=== PATIENT | male | born 1955 | race Caucasian/White ===

== ENCOUNTER 2023-06-10 13:53 | Emergency (ER) | payer OTHER ==
[2023-06-10] MEDS ORDERED: ONDANSETRON 4 MG/2 ML VIAL ONE (14:43)
[2023-06-10 15:10] LABS: Specific Gravity 1.005 (1.005-1.030); Urine Bilirubin NEGATIVE (Negative); Urine Blood Negative (Negative); Urine Clarity Clear (Clear); Urine Color Colorless (Yellow); Urine Glucose 3+ (Negative); Urine Protein NEGATIVE (Negative); Urine Urobilinogen Normal (Normal)
[2023-06-10 15:14] LABS: Protime INR 1.85
[2023-06-10 15:26] LABS: Absolute Lymphocytes (CBC) 0.9 K/uL (0.7-4.9); Hematocrit 33.8 % (39.6-49.0); Lymphocytes % 7.8 % (15.3-44.8); MCV 84.2 fL (80-100); MPV 8.1 fL (7.6-11.3); Platelets 344 thou/uL (152-406); RBC Red Blood Cell Count 4.01 M/uL (4.33-5.43)
[2023-06-10 15:27] LABS: Albumin 2.6 g/dL (3.4-5.0); Bilirubin Total 0.5 mg/dL (0.2-1.0); Potassium 3.8 mEq/L (3.5-5.1); Protein, Total 6.2 g/dL (6.4-8.2); Troponin High Sensitivity 10.2 pg/mL (<58.9)
[2023-06-10] MEDS ORDERED: NA CHLORIDE 0.9% 0 ML ONE (15:35)
--- NOTE | 2023-06-10 16:49 | RAD REPORT ---
EXAM DESCRIPTION: CT - Abdomen Pelvis W Contrast - 06/10/2023 3:42 pm CLINICAL HISTORY: vomit COMPARISON: Abdomen W/Wo Contrast dated 10/08/2022 TECHNIQUE: Thin cut axial CT imaging of the abdomen and pelvis was performed following intravenous a dministration of 100 mL Isovue 300. Multiplanar reformats were generated and reviewed. All CT scans are performed using dose optimization technique as appropriate and may include automated exposure control or mA/KV adjustment according to patient size. FINDINGS: No suspicious findings in the lung bases. The liver, adrenal glands, and pancreas show no suspicious findings. Mild splenomegaly. Gallbladder w as surgically removed. Symmetric renal function is seen with no hydronephrosis or suspicious renal mass. 5.3 cm left renal i nterpolar fluid density cyst, with mild wall thickening medially stable. Postsurgical changes at the gastric cardia again seen. No dilated bowel loops or bowel wall thickenin g. Diverticulum arising from the third part of the duodenum. No free air, free fluid or inflammatory stranding. No hernia, mass or bulky lymphadenopathy. The urinary bladder is without significant findi ng. No suspicious bony findings. IMPRESSION: No acute intra-abdominal process. Stable findings including mild splenomegaly and fluid density left renal interpolar cyst with mild wa ll thickening medially.
--- NOTE | 2023-06-10 17:20 | ER ---
Nurse's Notes [facility] Name: Gregg Martinez Age: 68 yrs Sex: Male : 1955 Arrival Date: 06/10/2023 Time: 13:53 Bed 23 Private MD: Diagnosis: Nausea with vomiting, unspecified Presentation: 06/10 14:24 Chief complaint: EMS states: Pt c/o N/V and dizziness, started this morning, fell last ph week and is scheduled for CT and possible surgery for possible L femur fracture, VSS, BGL 166, 800 mL NS given. Coronavirus screen: Vaccine status: Patient reports receiving the 2nd dose of the covid vaccine. Ebola Screen: No symptoms or risks identified at this time. Initial Sepsis Screen: Does the patient meet any 2 criteria? No. Patient's initial sepsis screen is negative. Does the patient have a suspected source of infection? No. Patient's initial sepsis screen is negative. Risk Assessment: Do you want to hurt yourself or someone else? Patient reports no desire to harm self or others. Onset of symptoms was June 10, 2023. 14:24 Method Of Arrival: EMS: [facility] [place] 14:24 Acuity: FAHEEM 3 ph Triage Assessment: 14:45 General: Appears in no apparent distress. Behavior is calm, cooperative, appropriate ph for age. Pain: Complains of pain in left leg. Neuro: Ahmadi Agitation-Sedation Scale (RASS): 0 - Alert and Calm Level of Consciousness is awake, alert, obeys commands, Oriented to person, place, time, situation, Reports dizziness. Cardiovascular: Capillary refill < 3 seconds in bilateral fingers Patient's skin is warm and dry. Edema is 3+ to left midcalf, left ankle, left foot, right midcalf, right ankle and right foot Rhythm is sinus rhythm. Respiratory: Airway is patent Respiratory effort is even, unlabored, Respiratory pattern is regular, symmetrical. GI: Abdomen is non-distended, obese, Reports nausea, vomiting, 1 episode of "soft stools". : No signs and/or symptoms were reported regarding the genitourinary system. Derm: Skin is pink, warm \\T\\ dry. Musculoskeletal: Circulation, motion, and sensation intact. Historical: - Allergies: 14:37 No Known Allergies; ph - Home Meds: 14:37 levothyroxine 25 mcg tablet 1 tab daily [Active]; Xigduo XR 10-1,000 mg oral ph tablet,immed \\T\\ ext release,biphasic 24hr daily [Active]; allopurinol 200 mg Oral tablet 1 tab daily [Active]; warfarin 10 mg Oral tablet daily [Active]; lisinopril 20 mg Oral tablet daily [Active]; montelukast 10 mg oral tablet daily [Active]; loratadine 10 mg oral tablet daily [Active]; furosemide 20 mg Oral tablet daily [Active]; magnesium glycinate oral 420 mg daily [Active]; pantoprazole 40 mg oral tablet, delayed release (enteric coated) daily [Active]; carvedilol 12.5 mg oral tablet 2 times per day [Active]; Tresiba FlexTouch U-100 100 unit/mL (3 mL) subcutaneous Insulin Pen 20 units daily [Active]; rosuvastatin 5 mg oral tablet daily [Active]; methocarbamol 750 mg Oral tablet TID PRN [Active]; gabapentin 300 mg (9)- 600 mg (24) oral Tablet, Extended Release 24hr Dose Pack TID PRN [Active]; tramadol 50 mg Oral tablet 1-2 tabs PRN [Active]; trazodone 100 mg Oral tablet as needed [Active]; Mitigare 0.6 mg oral capsule BID PRN [Active]; Mounjaro 5 mg/0.5 mL subcutaneous Pen Injector every week [Active]; - PMHx: 14:28 Diabetes mellitus; lymphedema; ph 14:37 Hypothyroidism; Hypertensive disorder; Hypercholesterolemia; chronic pain; Gout; ph - Immunization history:: Adult Immunizations up to date. - Social history:: Smoking status: Patient denies any tobacco usage or history of. - Family history:: not pertinent. Screenin:39 [facility] ED Fall Risk Assessment (Adult) History of falling in the last 3 months, ph including since admission Yes- single mechanical fall (1 pt) Confusion or Disorientation No (0 pts) Intoxicated or Sedated No (0 pts) Impaired Gait Yes (1 pt) Mobility Assist Device Used Yes (1 pt) Altered Elimination Yes (1 pt) Score/Fall Risk Level 3 or more points = High Risk Oriented to surroundings, Maintained a safe environment, Hourly rounding (assess needs \\T\\ fall precautionary measures) done, Used ambulatory aids as needed (educated on \\T\\ assisted with). Abuse screen: Denies threats or abuse. Denies injuries from another. Nutritional screening: No deficits noted. Tuberculosis screening: No symptoms or risk factors identified. Assessment: 15:39 Reassessment: Pt taken to CT via stretcher. General: SEE TRIAGE ASSESSMENT. ph Vital Signs: 14:24 BP 139 / 64; Pulse 71; Resp 16; Temp 97.8; Pulse Ox 99% on R/A; Weight 129.27 kg; ph Height 6 ft. 2 in. ; 15:39 BP 130 / 63; Pulse 68; Resp 18; Pulse Ox 98% on R/A; ph 14:24 Body Mass Index 36.59 (129.27 kg, 187.96 cm) ph ED Course: 14:11 Patient arrived in ED. ph 14:12 Ephraim Roman MD is Attending Physician. rt 14:28 Triage completed. ph 14:46 Arm band placed on Patient placed in an exam room, on a stretcher, on preschool director, ph on pulse oximetry. 15:39 Latasha Marie RN is Primary Nurse. ph 15:40 Patient has correct armband on for positive identification. Placed in gown. Bed in low ph position. Call light in reach. Side rails up X2. Client placed on continuous cardiac and pulse oximetry monitoring. NIBP monitoring applied. Door closed. Noise minimized. Warm blanket given. Pillow given. 15:40 Maintain EMS IV. Dressing intact. Good blood return noted. Site clean \\T\\ dry. Gauge \\T\\ ph site: 20G LAC. 15:43 CT Abd/Pelvis - IV Contrast Only In Process Unspecified. EDMS 18:14 No provider procedures requiring assistance completed. IV discontinued, intact, ph bleeding controlled, No redness/swelling at site. Pressure dressing applied. Administered Medications: 14:46 Drug: Ondansetron IVP 4 mg IVP once; over 2 minutes Route: IVP; Site: left antecubital; ph 18:15 Follow up: Response: No adverse reaction; Nausea is decreased ph 16:15 Drug: NS 0.9% IV 1000 ml IV at 1 bolus Per protocol; 1000 mL bolus Route: IV; Rate: 1 ph bolus; Site: left antecubital; 18:15 Follow up: Response: No adverse reaction; IV Status: Completed infusion; IV Intake: ph 1000ml Medication: 15:40 VIS not applicable for this client. ph Intake: 18:15 IV: 1000ml; Total: 1000ml. ph Outcome: 17:20 Discharge ordered by . rt 18:14 Discharged to home via wheelchair, ph 18:14 Condition: good 18:14 Discharge instructions given to patient, significant other, Instructed on discharge instructions, follow up and referral plans. medication usage, Demonstrated understanding of instructions, follow-up care, medications, Prescriptions given X 2, 18:16 Patient left the ED. ph Signatures: Dispatcher [employer] Latasha Hammond, ELIDA RN ph Ephraim Roman MD MD rt
--- NOTE | 2023-06-10 17:21 | EDPHYS ---
Physician Documentation [facility] Name: Gregg Martinez Age: 68 yrs Sex: Male : 1955 Arrival Date: 06/10/2023 Time: 13:53 Bed 23 Private MD: ED Physician Ephraim Roman HPI: 06/10 15:06 This 68 yrs old Male presents to ER via EMS with complaints of Dizziness, rt Nausea/Vomiting. 15:06 Patient presents to the ED with nausea, vomiting, reported lightheadedness. This rt started about 5 this morning. Denies any significant abdominal pain. The patient states that he recently had a fall, x-rays were equivocal for hip fracture, supposed to get a CT scan of his pelvis today to further evaluate for that. Is able to bear weight and walk with the aid of a walker. Denies other acute complaints at this time, symptoms are moderate in severity, no other aggravating alleviating factors. Historical: - Allergies: 14:37 No Known Allergies; ph - Home Meds: 14:37 levothyroxine 25 mcg tablet 1 tab daily [Active]; Xigduo XR 10-1,000 mg oral ph tablet,immed \T\ ext release,biphasic 24hr daily [Active]; allopurinol 200 mg Oral tablet 1 tab daily [Active]; warfarin 10 mg Oral tablet daily [Active]; lisinopril 20 mg Oral tablet daily [Active]; montelukast 10 mg oral tablet daily [Active]; loratadine 10 mg oral tablet daily [Active]; furosemide 20 mg Oral tablet daily [Active]; magnesium glycinate oral 420 mg daily [Active]; pantoprazole 40 mg oral tablet, delayed release (enteric coated) daily [Active]; carvedilol 12.5 mg oral tablet 2 times per day [Active]; Tresiba FlexTouch U-100 100 unit/mL (3 mL) subcutaneous Insulin Pen 20 units daily [Active]; rosuvastatin 5 mg oral tablet daily [Active]; methocarbamol 750 mg Oral tablet TID PRN [Active]; gabapentin 300 mg (9)- 600 mg (24) oral Tablet, Extended Release 24hr Dose Pack TID PRN [Active]; tramadol 50 mg Oral tablet 1-2 tabs PRN [Active]; trazodone 100 mg Oral tablet as needed [Active]; Mitigare 0.6 mg oral capsule BID PRN [Active]; Mounjaro 5 mg/0.5 mL subcutaneous Pen Injector every week [Active]; - PMHx: 14:28 Diabetes mellitus; lymphedema; ph 14:37 Hypothyroidism; Hypertensive disorder; Hypercholesterolemia; chronic pain; Gout; ph - Immunization history:: Adult Immunizations up to date. - Social history:: Smoking status: Patient denies any tobacco usage or history of. - Family history:: not pertinent. ROS: 15:06 Constitutional: Negative for fever, chills, and weight loss, Cardiovascular: Negative rt for chest pain, palpitations, and edema, MS/Extremity: Negative for injury and deformity, Skin: Negative for injury, rash, and discoloration, Psych: Negative for depression, anxiety, suicide ideation, homicidal ideation, and hallucinations, 15:06 Abdomen/GI: Positive for nausea and vomiting, Negative for abdominal pain, 15:06 MS/extremity: Positive for pain, Negative for deformity, 15:06 Neuro: Positive for near syncope, Negative for loss of consciousness, Exam: 15:06 Constitutional: This is a well developed, well nourished patient who is awake, alert, rt and in no acute distress. Head/Face: Normocephalic, atraumatic. Chest/axilla: Normal chest wall appearance and motion. Nontender with no deformity. No lesions are appreciated. Cardiovascular: Regular rate and rhythm with a normal S1 and S2. No gallops, murmurs, or rubs. Normal PMI, no JVD. No pulse deficits. Respiratory: Lungs have equal breath sounds bilaterally, clear to auscultation and percussion. No rales, rhonchi or wheezes noted. No increased work of breathing, no retractions or nasal flaring. Abdomen/GI: Soft, non-tender, with normal bowel sounds. No distension or tympany. No guarding or rebound. No evidence of tenderness throughout. Skin: Warm, dry with normal turgor. Normal color with no rashes, no lesions, and no evidence of cellulitis. Neuro: Awake and alert, GCS 15, oriented to person, place, time, and situation. Cranial nerves II-XII grossly intact. Motor strength 5/5 in all extremities. Sensory grossly intact. Cerebellar exam normal. Normal gait. Psych: Awake, alert, with orientation to person, place and time. Behavior, mood, and affect are within normal limits. 15:06 Cardiovascular: . 15:06 Cardiovascular: Mechanical heart valve sounds, regular rate and rhythm, 15:06 ECG was reviewed by the Attending Physician. Vital Signs: 14:24 BP 139 / 64; Pulse 71; Resp 16; Temp 97.8; Pulse Ox 99% on R/A; Weight 129.27 kg; ph Height 6 ft. 2 in. ; 15:39 BP 130 / 63; Pulse 68; Resp 18; Pulse Ox 98% on R/A; ph 14:24 Body Mass Index 36.59 (129.27 kg, 187.96 cm) ph MDM: 14:21 Patient medically screened. rt 17:54 Differential diagnosis: Nausea, vomiting, bowel obstruction, hip fracture. Data rt reviewed: vital signs, nurses notes, lab test result(s), EKG, radiologic studies. Consideration of Admission/Observation Escalation of care including admission/observation considered. Discussion of test interpretation with radiology: I had a discussion with radiology regarding a test interpretation. Discussed findings of hip with radiologist, states that he has osteophytes but no acute fracture.. Care significantly affected by the following chronic conditions: Diabetes, Hypertension. Counseling: I had a detailed discussion with the patient and/or guardian regarding the historical points, exam findings, and any diagnostic results supporting the discharge/admit diagnosis, lab results, radiology results, the need for outpatient follow up, to return to the emergency department if symptoms worsen or persist or if there are any questions or concerns that arise at home. Response to treatment: the patient's symptoms have markedly improved after treatment. 06/10 14:33 Order name: CBC with Diff; Complete Time: 16:05 rt 06/10 14:33 Order name: CMP; Complete Time: 16:05 rt 06/10 14:33 Order name: Lipase; Complete Time: 16:05 rt 06/10 14:33 Order name: Urinalysis w/ reflexes; Complete Time: 16:05 rt 06/10 14:33 Order name: Troponin High Sensitivity; Complete Time: 16:05 rt 06/10 14:33 Order name: PT-INR; Complete Time: 16:05 rt 06/10 15:03 Order name: Influenza Screen (a \T\ B); Complete Time: 16:05 rt 06/10 14:33 Order name: CT Abd/Pelvis - IV Contrast Only; Complete Time: 16:58 rt 06/10 14:33 Order name: EKG; Complete Time: 14:34 rt 06/10 14:33 Order name: IV Saline Lock; Complete Time: 14:47 rt 06/10 14:33 Order name: Labs collected and sent; Complete Time: 15:40 rt 11 14:33 Order name: EKG - Nurse/Tech; Complete Time: 14:47 rt EC:06 Rate is 69 beats/min. Rhythm is regular, Normal Sinus Rhythm with No ectopy, rt Bifascicular block. Left axis deviation noted. NH interval is normal. QRS interval is normal. QT interval is normal. No Q waves. Administered Medications: 14:46 Drug: Ondansetron IVP 4 mg IVP once; over 2 minutes Route: IVP; Site: left antecubital; ph 18:15 Follow up: Response: No adverse reaction; Nausea is decreased ph 16:15 Drug: NS 0.9% IV 1000 ml IV at 1 bolus Per protocol; 1000 mL bolus Route: IV; Rate: 1 ph bolus; Site: left antecubital; 18:15 Follow up: Response: No adverse reaction; IV Status: Completed infusion; IV Intake: ph 1000ml Disposition Summary: 06/10/23 17:20 Discharge Ordered Notes: Location: Home rt Problem: new rt Symptoms: have improved rt Condition: Stable rt Diagnosis - Nausea with vomiting, unspecified rt Followup: rt - With: Private Physician - When: 2 - 3 days - Reason: Discharge Instructions: - Discharge Summary Sheet rt - Nausea and Vomiting, Adult rt Forms: - Medication Reconciliation Form rt - Thank You Letter rt - Antibiotic Education rt - Prescription Opioid Use rt - Patient Portal Instructions rt - Leadership Thank You Letter rt Prescriptions: - ondansetron 4 mg Oral Tablet,disintegrating - take 1 tablet ORAL route every 6 hours; 18 tablet; Refills: 0, Product rt Selection Permitted Signatures: Dispatcher [employer] Latasha Hammond RN RN Ephraim Roman MD MD rt
[2023-06-10 18:47] VITALS: TEMP 97.8
[2023-06-10 18:48] VITALS: BP 130/63; O2SAT 98
--- NOTE | 2023-06-11 09:48 | EKG ---
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
== END 2023-06-10 18:16 | disposition home or self-care (01) ==
LOC: ER 13:53
DX: R11.2 Nausea with vomiting, unspecified (principal); E11.9 Type 2 diabetes mellitus without complications; I10 Essential (primary) hypertension; E03.9 Hypothyroidism, unspecified; Z79.01 Long term (current) use of anticoagulants; Z79.4 Long term (current) use of insulin
CPT/HCPCS: 36415; 74177; 80053; 81003; 83690; 84484; 85025; 85610; 87804; 93005; 96361; 96374; 99284; J2405; J7030; Q9967

== ENCOUNTER 2023-06-12 09:31 | Inpatient (IN) | payer OTHER ==
[2023-06-12 09:58] LABS: Absolute Lymphocytes (CBC) 1.1 K/uL (0.7-4.9); Lymphocytes % 8.6 % (15.3-44.8); MCV 83.8 fL (80-100); MPV 7.5 fL (7.6-11.3); Platelets 432 thou/uL (152-406); RBC Red Blood Cell Count 4.66 M/uL (4.33-5.43)
[2023-06-12] MEDS ORDERED: NA CHLORIDE 0.9% 1,000 ML ONE (10:08)
[2023-06-12] MEDS ORDERED: DICYCLOMINE HCL 20 MG/2 ML AMP IM ONE (10:08)
[2023-06-12] MEDS ORDERED: ONDANSETRON 4 MG/2 ML VIAL ONE (10:08)
[2023-06-12 10:18] LABS: Albumin 3.1 g/dL (3.4-5.0); Bilirubin Total 0.7 mg/dL (0.2-1.0); Potassium 3.7 mEq/L (3.5-5.1); Protein, Total 7.6 g/dL (6.4-8.2)
[2023-06-12 10:27] LABS: SARS-CoV-2 Antigen Rapid Res Negative (Negative)
[2023-06-12 10:46] LABS: Specific Gravity 1.019 (1.005-1.030); Urine Bacteria None Seen /HPF (<20); Urine Bilirubin NEGATIVE (Negative); Urine Blood Negative (Negative); Urine Clarity Clear (Clear); Urine Color Light-Yellow (Yellow); Urine Glucose 4+ (Over) (Negative); Urine Protein TRACE (Negative); Urine RBC None Seen /HPF (None Seen); Urine Sperm Present (None Seen); Urine Urobilinogen 1+ (Normal)
--- NOTE | 2023-06-12 11:28 | EDPHYS ---
Physician Documentation [facility] Name: Gregg Martinez Age: 68 yrs Sex: Male : 1955 Arrival Date: 06/12/2023 Time: 09:31 Bed 20 Private MD: Kenny Rios V ED Physician Teja Louis HPI: 06/12 09:48 This 68 yrs old Male presents to ER via Ambulatory with complaints of Diarrhea. 7 09:48 The patient presents to the emergency department with nausea, diarrhea. Onset: The jh7 symptoms/episode began/occurred 3 day(s) ago. Possible causes: unknown. Associated signs and symptoms: Pertinent positives: fever, Pertinent negatives: dysuria, vomiting. Patient seen on Thursday and discharged for the same thing. He reports that his symptoms have not improved and that he has hardly eaten anything for the past 3 days. Denies vomiting, but reports fever, chills, watery diarrhea, and nausea. States that he feels weak and dehydrated.. Historical: - Allergies: 09:47 No Known Allergies; eh3 - PMHx: 09:47 Chronic pain; diabetes mellitus; Gout; Hypercholesterolemia; Hypertensive disorder; eh3 Hypothyroidism; lymphedema; - Immunization history:: Adult Immunizations up to date. - Social history:: Smoking status: unknown. ROS: 09:48 Eyes: Negative for injury, pain, redness, and discharge, ENT: Negative for injury, jh7 pain, and discharge, Cardiovascular: Negative for chest pain, palpitations, and edema, Respiratory: Negative for shortness of breath, cough, wheezing, and pleuritic chest pain, Back: Negative for injury and pain, MS/Extremity: Negative for injury and deformity, Skin: Negative for injury, rash, and discoloration, Neuro: Negative for headache, weakness, numbness, tingling, and seizure, 09:48 Constitutional: Positive for body aches, chills, fatigue, fever, malaise, poor PO intake, 09:48 Abdomen/GI: Positive for nausea, diarrhea, abdominal cramps, Negative for abdominal pain, vomiting, constipation, dysphagia, black/tarry stool, rectal pain, rectal bleeding, 09:48 All other systems are negative, Exam: 09:48 Head/Face: Normocephalic, atraumatic. ENT: Nares patent. No nasal discharge, no 7 septal abnormalities noted. Tympanic membranes are normal and external auditory canals are clear. Oropharynx with no redness, swelling, or masses, exudates, or evidence of obstruction, uvula midline. Mucous membranes moist. Cardiovascular: Regular rate and rhythm with a normal S1 and S2. No gallops, murmurs, or rubs. Normal PMI, no JVD. No pulse deficits. Respiratory: Lungs have equal breath sounds bilaterally, clear to auscultation and percussion. No rales, rhonchi or wheezes noted. No increased work of breathing, no retractions or nasal flaring. Abdomen/GI: Soft, non-tender, with normal bowel sounds. No distension or tympany. No guarding or rebound. No evidence of tenderness throughout. Back: No spinal tenderness. No costovertebral tenderness. Full range of motion. MS/ Extremity: Pulses equal, no cyanosis. Neurovascular intact. Full, normal range of motion. Neuro: Awake and alert, GCS 15, oriented to person, place, time, and situation. Motor strength 5/5 in all extremities. Sensory grossly intact. Normal gait. 09:48 Constitutional: The patient appears alert, awake, obviously ill, 09:48 Skin: Appearance: Color: pale, Vital Signs: 09:46 BP 152 / 77; Pulse 69; Resp 18; Temp 99.1(O); Pulse Ox 98% on R/A; Weight 129.27 kg; eh3 Height 6 ft. 3 in. ; Pain 7/10; 10:30 BP 151 / 76; Pulse 58; Resp 18; Pulse Ox 95% on R/A; eh3 11:30 BP 138 / 55; Pulse 66; Resp 18; Pulse Ox 95% on R/A; eh3 09:46 Body Mass Index 35.62 (129.27 kg, 190.5 cm) [facility] 09:46 Pain Scale: Adult 3 MDM: 09:35 Patient medically screened. [facility] 11:40 Differential diagnosis: diverticulitis, viral gastroenteritis, gastroenteritis, jh7 Dehydration, generalized weakness, electrolyte abnormality. Data reviewed: vital signs, nurses notes, lab test result(s). Management of patient was discussed with the following: Primary Care Provider: Dr. Rios. Requested Giardia screen, WBC stain, stool culture, ova and parasite, and C. difficile test. Also asked for a PT consult and Lovenox 40 sq daily. Will admit for dehydration and put the patient on maintenance fluids.. I considered the following discharge prescriptions or medication management in the emergency department Medications were administered in the Emergency Department. See MAR. Historians other than the Patient: Spouse/Significant Other: . Care significantly affected by the following chronic conditions: Diabetes, Hypertension. Counseling: I had a detailed discussion with the patient and/or guardian regarding the historical points, exam findings, and any diagnostic results supporting the discharge/admit diagnosis, the need for further work-up and treatment in the hospital. Response to treatment: the patient's symptoms have mildly improved after treatment. 06/12 09:45 Order name: CBC with Diff; Complete Time: 10:01 [facility] 06/12 09:45 Order name: CMP; Complete Time: 10:24 [facility] 06/12 09:45 Order name: Lipase; Complete Time: 10:24 [facility] 06/12 09:45 Order name: Urinalysis w/ reflexes; Complete Time: 10:52 [facility] 06/12 10:01 Order name: SARS RAPID; Complete Time: 10:32 [facility] 06/12 10:02 Order name: Lactate w/ 2H reflex if indic.; Complete Time: 10:40 [facility] 06/12 10:06 Order name: CDIFF; Complete Time: 13:37 [facility] 06/12 10:06 Order name: Stool Culture [facility] 06/12 11:27 Order name: Fecal Leukocyte Stain [facility] 06/12 11:27 Order name: Ova And Parasites [facility] 06/12 11:27 Order name: Giardia Antigen Screen [facility] 06/12 11:38 Order name: Urinalysis w/ reflexes [facility] 06/12 11:41 Order name: Basic Metabolic Panel [facility] 06/12 11:41 Order name: Basic Metabolic Panel [facility] 06/12 11:41 Order name: CBC with Automated Diff [facility] 06/12 11:41 Order name: CBC with Automated Diff [facility] 06/12 11:41 Order name: Physical Therapy Consult [facility] 06/12 09:45 Order name: IV Saline Lock; Complete Time: 09:49 [facility] 06/12 09:45 Order name: Labs collected and sent; Complete Time: 09:49 [facility] Administered Medications: 10:00 Drug: NS 0.9% IV 1000 ml IV at 1 bolus Per protocol; 1000 mL bolus Route: IV; Rate: 1 eh3 bolus; Site: right antecubital; 11:15 Follow up: IV Status: Completed infusion; IV Intake: 1000ml 3 10:00 Drug: Ondansetron IVP 4 mg IVP once; over 2 minutes Route: IVP; Site: right antecubital;3 11:00 Follow up: Response: No adverse reaction; Nausea is decreased 3 10:00 Drug: Dicyclomine IM 20 mg IM once Route: IM; Site: right ventrogluteal; 3 11:00 Follow up: Response: No adverse reaction 3 Disposition: 13:38 Co-signature as Attending Physician, Teja Louis MD I reviewed the patient's care rn provided by the Advanced Practice Provider and agree with the diagnosis and treatment plan. Disposition Summary: 06/12/23 11:28 Hospitalization Ordered Notes: Hospitalization Status: Inpatient Admission [facility] Provider: Kenny Rios [facility] Location: Telemetry/[facility] (Inpatient) [facility] Condition: Fair [facility] Problem: new [facility] Symptoms: have worsened [facility] Bed/Room Type: Standard [facility] Room Assignment: [facility](06/12/23 12:17) Diagnosis - Dehydration 7 - Muscle weakness (generalized) 7 - Diarrhea, unspecified [facility] Forms: - Medication Reconciliation Form [facility] - SBAR form [facility] - Leadership Thank You Letter [facility] Signatures: Dispatcher [employer] Teja Puente MD MD rn Botello, Elizabeth eb Hall, Erin, RN RN [facility] Tory Ugarte FNP [place] [id number] Corrections: (The following items were deleted from the chart) 11:07 09:48 Onset: The symptoms/episode began/occurred 6 day(s) ago, [place] [address] 11:07 09:48 Patient seen on Thursday and discharged for the same thing. He reports that his [facility] symptoms have not improved and that he has hardly eaten anything for the past 3 days. Denies vomiting, but reports fever, chills, watery diarrhea, and nausea. States that he feels weak and dehydrated.. [facility] 12:17 11:28 [facility]
--- NOTE | 2023-06-12 11:28 | ER ---
Nurse's Notes [facility] Name: Gregg Martinez Age: 68 yrs Sex: Male : 1955 Arrival Date: 06/12/2023 Time: 09:31 Bed 20 Private MD: Kenny Rios V Diagnosis: Dehydration;Muscle weakness (generalized);Diarrhea, unspecified Presentation: 06/12 09:46 Chief complaint: Patient states: diarrhea and nausea for 5-6 days. Coronavirus screen: eh3 Vaccine status: Patient reports receiving the 2nd dose of the covid vaccine. Ebola Screen: No symptoms or risks identified at this time. Initial Sepsis Screen: Does the patient meet any 2 criteria? No. Patient's initial sepsis screen is negative. Does the patient have a suspected source of infection? No. Patient's initial sepsis screen is negative. Risk Assessment: Do you want to hurt yourself or someone else? Patient reports no desire to harm self or others. Onset of symptoms was June 12, 2023. 09:46 Method Of Arrival: Ambulatory [facility] 09:46 Acuity: FAHEEM 3 eh3 Triage Assessment: 09:47 General: Appears in no apparent distress. uncomfortable, Behavior is cooperative, eh3 appropriate for age. Pain: Complains of pain in abdomen. Neuro: Level of Consciousness is awake, alert, obeys commands, Oriented to person, place, time, situation. Cardiovascular: Capillary refill < 3 seconds Patient's skin is warm and dry. Respiratory: Airway is patent Respiratory effort is even, unlabored, Respiratory pattern is regular, symmetrical. GI: Abdomen is round non-distended, Reports diarrhea, nausea. Derm: Skin is pink, warm \T\ dry. Musculoskeletal: Circulation, motion, and sensation intact. Historical: - Allergies: 09:47 No Known Allergies; eh3 - PMHx: 09:47 Chronic pain; diabetes mellitus; Gout; Hypercholesterolemia; Hypertensive disorder; eh3 Hypothyroidism; lymphedema; - Immunization history:: Adult Immunizations up to date. - Social history:: Smoking status: unknown. Screenin:48 [facility] ED Fall Risk Assessment (Adult) Score/Fall Risk Level 0 - 2 = Low Risk. Abuse eh3 screen: Denies threats or abuse. Denies injuries from another. Nutritional screening: No deficits noted. Tuberculosis screening: No symptoms or risk factors identified. Assessment: 09:48 Reassessment: No changes from previously documented assessment. See triage assessment. 3 10:30 Reassessment: Patient appears in no apparent distress at this time. Patient and/or eh3 family updated on plan of care and expected duration. Pain level reassessed. Patient is alert, oriented x 3, equal unlabored respirations, skin warm/dry/pink. 11:30 Reassessment: Patient appears in no apparent distress at this time. Patient and/or eh3 family updated on plan of care and expected duration. Pain level reassessed. Patient is alert, oriented x 3, equal unlabored respirations, skin warm/dry/pink. 12:24 Reassessment: Nurse to nurse report received by ELIDA Torres on 2nd floor. [facility] Vital Signs: 09:46 BP 152 / 77; Pulse 69; Resp 18; Temp 99.1(O); Pulse Ox 98% on R/A; Weight 129.27 kg; 3 Height 6 ft. 3 in. ; Pain 7/10; 10:30 BP 151 / 76; Pulse 58; Resp 18; Pulse Ox 95% on R/A; eh3 11:30 BP 138 / 55; Pulse 66; Resp 18; Pulse Ox 95% on R/A; eh3 09:46 Body Mass Index 35.62 (129.27 kg, 190.5 cm) eh3 09:46 Pain Scale: Adult [facility] ED Course: 09:31 Patient arrived in ED. rg4 09:31 Kenny Rios MD is Private Physician. rg4 09:35 Tory Ugarte FNP [facility] jh7 09:35 Teja Louis MD is Attending Physician. jh7 09:46 Alysa Marie, ELIDA is Primary Nurse. eh3 09:47 Triage completed. eh3 09:47 Arm band placed on. eh3 09:48 Patient has correct armband on for positive identification. Bed in low position. Call [facility] light in reach. Side rails up X2. Provided Education on: use of call leach. Pulse ox on. NIBP on. 09:53 CBC with Diff Sent. bc6 09:53 CMP Sent. bc6 09:53 Lipase Sent. bc6 09:53 Inserted saline lock: 20 gauge in right antecubital area, using aseptic technique. bc6 10:34 Urinalysis w/ reflexes Sent. bc6 11:27 Kenny Rios MD is Hospitalizing Provider. [facility] 12:24 No provider procedures requiring assistance completed. Patient admitted, IV remains in [address] Administered Medications: 10:00 Drug: NS 0.9% IV 1000 ml IV at 1 bolus Per protocol; 1000 mL bolus Route: IV; Rate: 1 eh3 bolus; Site: right antecubital; 11:15 Follow up: IV Status: Completed infusion; IV Intake: 1000ml [facility] 10:00 Drug: Ondansetron IVP 4 mg IVP once; over 2 minutes Route: IVP; Site: right antecubital;3 11:00 Follow up: Response: No adverse reaction; Nausea is decreased [facility] 10:00 Drug: Dicyclomine IM 20 mg IM once Route: IM; Site: right ventrogluteal; 3 11:00 Follow up: Response: No adverse reaction [facility] Medication: 12:24 VIS not applicable for this client. 3 Intake: 11:15 IV: 1000ml; Total: 1000ml. [facility] Outcome: 11:28 Decision to Hospitalize by Provider. [facility] 12:24 Admitted to Med/surg accompanied by tech, family with patient, via stretcher, room 217, 3 Report called to ELIDA Torres 12:24 Condition: stable 12:24 Instructed on the need for admit, 12:58 Patient left the ED. [facility] Signatures: Jennifer Arriola rg4 Alysa Marie RN RN 3 Tory Ugarte, CREW LEAD CREW LEAD [facility]
[2023-06-12] MEDS ORDERED: NA CHLORIDE 0.9% 1,000 ML IV SCH (12:00)
[2023-06-12 12:46] LABS: C.diff Antigen/Toxin Ag neg : Tox neg (NEG : NEG)
[2023-06-12 12:59] VITALS: BMI 35.6
[2023-06-12] MEDS ORDERED: methocarbamoL 750 MG TAB PO PRN (14:23)
[2023-06-12] MEDS ORDERED: TRAMADOL HCL 50 MG TAB PO PRN (14:23)
--- NOTE | 2023-06-12 14:33 | P.HP ---
Certification for Inpatient Patient admitted to: Inpatient With expected LOS: >2 Midnights Practitioner: I am a practitioner with admitting privileges, knowledge of patient current condition, hospital course, and medical plan of care. Services: Services provided to patient in accordance with Admission requirements found in Title 42 Section 412.3 of the Code of Federal Regulations Patient History Date of Service: 06/12/23 Reason for admission: WEAKNESS, NOT ABLE TO WALK History of Present Illness: ABDULAZIZ IS MORBIDLY OBESE DIABETIC WHO GOT WEAK WITH NAUSEA AND VOMITING, WAS SEEN BY ER DOCTOR, CT SCAN NEG, SENT HOME. HE LATER FELL AND HURT L KNEE AND HIP. DR LADD ASKED FOR CT SCAN OF HIP SUSPECTING FRACTURE AND ASKED HIM NOT TO WALK. THAT IS WHY IS NOT WALKING. ER PA DID NOT GET THIS HISTORY. HE HAS LOW GRADE LEUKOCYTOSIS LATELY. Allergies No Known Allergies Allergy (Unverified 06/12/23 11:54) Home medications list reviewed: Yes Home Medications: Carvedilol [Coreg] 12.5 mg PO BID 6AM 6PM 06/12/23 Colchicine [Mitigare] 0.6 mg PO BID PRN 06/12/23 Dapagliflozin/Metformin HCl [Xigduo Xr 10 mg-1,000 mg Tab] 1 tab PO DAILY 06/12/23 Furosemide 20 mg PO DAILY 06/12/23 Gabapentin 300 mg PO TID 06/12/23 Insulin Degludec [Tresiba Flextouch U-100] 20 units SQ DAILY 06/12/23 Levothyroxine Sodium [Levothyroxine] 25 mcg PO [id number] 06/12/23 Loratadine [Claritin*] 10 mg PO DAILY 06/12/23 Magnesium Glycinate, Mag Oxide [Magnesium Glycinate] 420 mg PO DAILY 06/12/23 Montelukast [Singulair*] 10 mg PO BEDTIME 06/12/23 Pantoprazole Sodium 40 mg PO DAILY 06/12/23 Rosuvastatin Calcium 5 mg PO DAILY 06/12/23 Tirzepatide [Mounjaro] 5 mg SQ SEECOM 06/12/23 Trazodone HCl 100 mg PO BEDTIME PRN 06/12/23 Warfarin Sodium 10 mg PO DAILY 06/12/23 allopurinoL [Allopurinol] 200 mg PO DAILY 06/12/23 lisinopriL [Lisinopril] 20 mg PO DAILY 06/12/23 methocarbamoL [Methocarbamol] 750 mg PO TID PRN 06/12/23 traMADol HCL [Ultram*] 50 mg PO TID PRN 06/12/23 - Past Medical/Surgical History Has patient received pneumonia vaccine in the past: Yes Diabetic: Yes -: DM -: GOUT -: Chronic pain -: Hypercholesterolemia -: HTN -: Hypothyroidism -: Lymphedema -: CHF -: Pulmonary embolism -: Rt wrist repair -: Rt knee repair -: Aortic valve replacement -: cholecystectomy -: Gastric bypass -: BLE vein stripping -: Tonsillectomy - Social History Smoking Status: Never smoker Alcohol use: No CD- Drugs: No Caffeine use: No Place of Residence: Home Review of Systems 10-point ROS is otherwise unremarkable General: Weakness Gastrointestinal: Diarrhea, As per HPI Physical Examination - Vital Signs Temperature: 99.1 F Blood Pressure: 138/55 Pulse: 66 Respirations: 18 Pulse Ox (%): 99 - Physical Exam General: Alert, In no apparent distress, Obese HEENT: Atraumatic, PERRLA, Mucous membr. moist/pink, EOMI, Sclerae nonicteric Neck: Supple, 2+ carotid pulse no bruit, No LAD, Without JVD or thyroid abnormality Respiratory: Clear to auscultation bilaterally, Normal air movement Cardiovascular: Regular rate/rhythm, Normal S1 S2 Gastrointestinal: Normal bowel sounds, No tenderness Musculoskeletal: No tenderness Integumentary: No rashes Neurological: Normal gait, Normal speech, Normal strength at 5/5 x4 extr, Normal tone, Normal affect Lymphatics: No axilla or inguinal lymphadenopathy - Studies Laboratory Data (last 24 hrs) 06/12/23 06/12/23 09:50 09:50 WBC 12.90 H Hgb 12.6 L Hct 39.0 L Plt Count 432 H Sodium 139 Potassium 3.7 BUN 9 Creatinine 1.07 Glucose 148 H Total Bilirubin 0.7 AST 10 L ALT 20 Alkaline Phosphatase 91 Lipase 39 Assessment and Plan - Problems (Diagnosis) (1) Gastroenteritis Current Visit: Yes Status: Acute Plan: THIS IS GIVING HIM WEAKNESS BUT HE IS NOT WALKING DR. LADD ASKED HIM NOT TO. CHECK STOOL FOR C DIFF ETC. COLCHCINE AND METFORMIN BOTH CAN GIVE DIARRHEA STOP FOR NOW (2) Hip injury Current Visit: Yes Status: Acute Plan: ORDER STAT CT Qualifiers: Laterality: left (3) Diabetes Current Visit: Yes Status: Acute Plan: LAST A1C AT OFFICE I 6.9 DIET IS POOR GRINGOS, SONIC ETC. 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 ESTEVEZ - Advance Directives Does patient have a Living Will: No Does patient have a Durable POA for Healthcare: No
--- NOTE | 2023-06-12 15:22 | RAD REPORT ---
EXAM DESCRIPTION: CT - Hip Left Wo Con - 06/12/2023 2:56 pm CLINICAL HISTORY: Left hip pain status post fall COMPARISON: None TECHNIQUE: Computed axial tomography left hip obtained with coronal and sagittal reconstruction. All CT scans are performed using dose optimization technique as appropriate and may include automated exposure control or mA/KV adjustment according to patient size. FINDINGS: Sclerosis involves the subcapital left femur. A lucent fracture line is not seen. No dislocation Marked osteoarthritis left hip. No significant joint effusion. No hematoma noted IMPRESSION: Sclerosis involves the subcapital left femur. It is uncertain if this indicates a subtle impaction fracture. It is recommended that the patient have an MRI left hip for further evaluation Exam discussed with the referring physician
[2023-06-12] MEDS: GABAPENTIN 300 MG CAP PO SCH ×2 (15:45→21:24)
[2023-06-12 16:57] LABS: Protime INR 1.54
[2023-06-12 17:26] LABS: Ferritin 62.4 ng/mL (26-388)
[2023-06-12] MEDS ORDERED: WARFARIN SODIUM 5 MG TAB PO SCH (17:37)
[2023-06-12] MEDS: carvediloL 12.5 MG TAB PO SCH (17:46)
[2023-06-12] MEDS: TRAZODONE 50 MG TABLET PO SCH (21:21)
[2023-06-12] MEDS: MONTELUKAST 10 MG TAB PO SCH (21:24)
[2023-06-13] MEDS: PANTOPRAZOLE 40MG TABLET PO SCH (05:45)
[2023-06-13] MEDS: carvediloL 12.5 MG TAB PO SCH ×2 (05:46→17:18)
[2023-06-13] MEDS: LEVOTHYROXINE SOD 0.025 MG TAB PO SCH (05:46)
[2023-06-13] MEDS: INSULN SQ SCH (09:00)
[2023-06-13] MEDS: INSULIN DEGLUDEC 100 UNIT/ML SQ SCH (09:00)
[2023-06-13] MEDS: [UNRECOGNIZED DRUG - OTHER] PO SCH (09:00)
[2023-06-13] MEDS ORDERED: ENOXAPARIN 40 MG/0.4 ML SQ SCH (09:00)
[2023-06-13] MEDS: DAPAGLIFLOZIN PO SCH (09:00)
[2023-06-13] MEDS: METFORMIN HCL PO SCH (09:00)
[2023-06-13] MEDS ORDERED: WARFARIN SODIUM 10 MG PO SCH (09:00)
[2023-06-13] MEDS: GABAPENTIN 300 MG CAP PO SCH ×3 (09:13→21:05)
[2023-06-13] MEDS: ROSUVASTATIN 5 MG TAB PO SCH (09:13)
[2023-06-13] MEDS: LORATADINE 10 MG TAB PO SCH (09:13)
[2023-06-13] MEDS: FUROSEMIDE 20 MG TABLET PO SCH (09:14)
[2023-06-13] MEDS: lisinopriL 20 MG TAB PO SCH (09:14)
[2023-06-13] MEDS: allopurinoL 100 MG TAB PO SCH (09:14)
--- NOTE | 2023-06-13 09:54 | P.PN ---
Subjective Date of Service: 06/13/23 Chief Complaint: WEAKNESS, NOT ABLE TO WALK Subjective: Improving ABDULAZIZ IS MORBIDLY OBESE GM WHO IS DIABETIC, HAS PROTHETIC AORTIC VALVE, IS SCHEDULED FOR SURGERY FOR R HIP REPLACEMENT BY DR LADD. HE FELL AND HAS L HIP INJURY. CT SHOWS POSSIBLE FRACTURE BUT NOT SURE. AFTER 3 PM ON THURSDAY WE COULD NOT DO MRI AT [facility] HERE. HE HAS TO WAIT UNTIL THURSDAY NOW. HE HAS NO MORE DIARRHEA. C DIFF NEG. Review of Systems 10-point ROS is otherwise unremarkable General: Weakness Physical Examination - Vital Signs Temperature: 97.0 F Blood Pressure: 109/61 Pulse: 58 Respirations: 17 Pulse Ox (%): 98 - Physical Exam General: Oriented x3, Mild distress, Obese HEENT: Atraumatic, PERRLA, EOMI Neck: Supple, JVD not distended Respiratory: Clear to auscultation bilaterally, Normal air movement Cardiovascular: Regular rate/rhythm, Normal S1 S2 Gastrointestinal: Normal bowel sounds, No tenderness Musculoskeletal: No tenderness Integumentary: No rashes Neurological: Normal speech, Normal tone, Normal affect Lymphatics: No axilla or inguinal lymphadenopathy - Studies Laboratory Data (last 24 hrs) 06/12/23 06/12/23 09:50 09:50 WBC 12.90 H Hgb 12.6 L Hct 39.0 L Plt Count 432 H Sodium 139 Potassium 3.7 BUN 9 Creatinine 1.07 Glucose 148 H Total Bilirubin 0.7 AST 10 L ALT 20 Alkaline Phosphatase 91 Lipase 39 Medications List Reviewed: Yes Assessment And Plan - Current Problems (Diagnosis) (1) Gastroenteritis Current Visit: Yes Status: Acute Plan: THIS IS GIVING HIM WEAKNESS BUT HE IS NOT WALKING DR. LADD ASKED HIM NOT TO. CHECK STOOL FOR C DIFF ETC. COLCHCINE AND METFORMIN BOTH CAN GIVE DIARRHEA STOP FOR NOW RESOLVED HE IS NOT TAKING COLCHICINE DAILY (2) Hip injury Current Visit: Yes Status: Acute Plan: ORDER STAT CT CT QUESTIONABLE MRI THURSDAY MRI STAFF WAS GONE HOME BY 3 PM YESTERDAY SOMEHOW. Qualifiers: Laterality: left (3) Diabetes Current Visit: Yes Status: Chronic Plan: LAST A1C AT OFFICE I 6.9 DIET IS POOR GRINGOS, SONIC ETC. 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 ESTEVEZ INR IS LOW START LOVENOX INJECTIONS. BRING INR TO AT LEAST 2 BEFORE WE STOP IT (5) Arthritis of right hip Current Visit: Yes Status: Chronic Plan: HE HAS R HIP ARTHRITIS SURGERY SCHEDULED ON BUT MEANWHILE HE FELL AT HOME. AT 68 HE IS QUITE DECONDITIONED WEIGHT LOSS IS A MUST DIET IS POOR I WITNESSED. DR. KATHLEEN CARO WILL WORK ON THEIR DIET AT OFFICE. HE IS NOT IN SHAPE TO GO HOME HE IS A FALL RISK. (6) Leukocytosis Current Visit: Yes Status: Chronic Plan: FOR A FEW MONTHS. NO SYMPTOMS OF INFECTION. C DIFF NEG CXR, URINE NEG BC 2 PENDING CRP MILD HIGH CHECK CCP, SHASHANK. IEP.
[2023-06-13] MEDS: WARFARIN SODIUM 2 MG TAB PO SCH (17:19)
[2023-06-13] MEDS: MONTELUKAST 10 MG TAB PO SCH (21:05)
[2023-06-13] MEDS: TRAZODONE 50 MG TABLET PO SCH (21:06)
[2023-06-13] MEDS: ENOXAPARIN 30 MG/0.3 ML SQ SCH (21:07)
[2023-06-14 04:00] LABS: Absolute Lymphocytes (CBC) 1.6 K/uL (0.7-4.9); Lymphocytes % 9.7 % (15.3-44.8); MCV 84.6 fL (80-100); MPV 8.2 fL (7.6-11.3); Platelets 349 thou/uL (152-406); RBC Red Blood Cell Count 4.25 M/uL (4.33-5.43)
[2023-06-14 04:01] LABS: Protime INR 1.64
[2023-06-14 04:44] LABS: Potassium 4.6 mEq/L (3.5-5.1)
[2023-06-14] MEDS: LEVOTHYROXINE SOD 0.025 MG TAB PO SCH (05:48)
[2023-06-14] MEDS: PANTOPRAZOLE 40MG TABLET PO SCH (05:48)
[2023-06-14] MEDS: carvediloL 12.5 MG TAB PO SCH ×2 (05:49→17:08)
[2023-06-14] MEDS: lisinopriL 20 MG TAB PO SCH (08:46)
[2023-06-14] MEDS: LORATADINE 10 MG TAB PO SCH (08:47)
[2023-06-14] MEDS: allopurinoL 100 MG TAB PO SCH (08:47)
[2023-06-14] MEDS: GABAPENTIN 300 MG CAP PO SCH ×3 (08:47→21:04)
[2023-06-14] MEDS: FUROSEMIDE 20 MG TABLET PO SCH (08:48)
[2023-06-14] MEDS: ENOXAPARIN 30 MG/0.3 ML SQ SCH ×2 (08:48→21:03)
[2023-06-14] MEDS: ROSUVASTATIN 5 MG TAB PO SCH (08:48)
[2023-06-14] MEDS: METFORMIN HCL PO SCH (08:49)
[2023-06-14] MEDS: [UNRECOGNIZED DRUG - OTHER] PO SCH (08:49)
[2023-06-14] MEDS: DAPAGLIFLOZIN PO SCH (08:49)
[2023-06-14] MEDS: INSULIN DEGLUDEC 100 UNIT/ML SQ SCH (08:50)
[2023-06-14] MEDS: INSULN SQ SCH (08:50)
[2023-06-14] MEDS: WARFARIN SODIUM 2 MG TAB PO SCH (17:07)
--- NOTE | 2023-06-14 18:39 | P.PN ---
Subjective Date of Service: 06/14/23 Chief Complaint: NOT CLEAR ON CT IF L HIP HAS FRACTURE Subjective: No new changes ABDULAZIZ IS MORBIDLY OBESE GM WHO IS DIABETIC, HAS PROTHETIC AORTIC VALVE, IS SCHEDULED FOR SURGERY FOR R HIP REPLACEMENT BY DR LADD. HE FELL AND HAS L HIP INJURY. CT SHOWS POSSIBLE FRACTURE BUT NOT SURE. AFTER 3 PM ON THURSDAY WE COULD NOT DO MRI AT [facility] HERE. HE HAS TO WAIT UNTIL THURSDAY NOW. HE HAS NO MORE DIARRHEA. C DIFF NEG. SOME CONGESTION TODAY NO OTHER SIGNS OF INFECTION. Review of Systems 10-point ROS is otherwise unremarkable General: Weakness Physical Examination - Vital Signs Temperature: 97.0 F Blood Pressure: 104/61 Pulse: 65 Respirations: 18 Pulse Ox (%): 95 - Physical Exam General: Oriented x3, Mild distress, Obese HEENT: Atraumatic, PERRLA, EOMI Neck: Supple, JVD not distended Respiratory: Clear to auscultation bilaterally, Normal air movement Cardiovascular: Regular rate/rhythm, Normal S1 S2 Gastrointestinal: Normal bowel sounds, No tenderness Musculoskeletal: No tenderness Integumentary: No rashes Neurological: Normal speech, Normal tone, Normal affect Lymphatics: No axilla or inguinal lymphadenopathy - Studies Medications List Reviewed: Yes Assessment And Plan - Current Problems (Diagnosis) (1) Gastroenteritis Current Visit: Yes Status: Acute Plan: THIS IS GIVING HIM WEAKNESS BUT HE IS NOT WALKING DR. LADD ASKED HIM NOT TO. CHECK STOOL FOR C DIFF ETC. COLCHCINE AND METFORMIN BOTH CAN GIVE DIARRHEA STOP FOR NOW RESOLVED HE IS NOT TAKING COLCHICINE DAILY (2) Hip injury Current Visit: Yes Status: Acute Plan: ORDER STAT CT CT QUESTIONABLE MRI THURSDAY MRI STAFF WAS GONE HOME BY 3 PM YESTERDAY SOMEHOW. NON WEIGHT BEARING UNTIL MRI CONFIRMS OR RULES OUT FRACTURE Qualifiers: Laterality: left (3) Diabetes Current Visit: Yes Status: Chronic Plan: LAST A1C AT OFFICE I 6.9 DIET IS POOR GRINGOS, SONIC ETC. 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 ESTEVEZ INR IS LOW START LOVENOX INJECTIONS. BRING INR TO AT LEAST 2 BEFORE WE STOP IT (5) Arthritis of right hip Current Visit: Yes Status: Chronic Plan: HE HAS R HIP ARTHRITIS SURGERY SCHEDULED ON BUT MEANWHILE HE FELL AT HOME. AT 68 HE IS QUITE DECONDITIONED WEIGHT LOSS IS A MUST DIET IS POOR I WITNESSED. DR. KATHLEEN CARO WILL WORK ON THEIR DIET AT OFFICE. HE IS NOT IN SHAPE TO GO HOME HE IS A FALL RISK. (6) Leukocytosis Current Visit: Yes Status: Chronic Plan: FOR A FEW MONTHS. NO SYMPTOMS OF INFECTION. C DIFF NEG CXR, URINE NEG BC 2 PENDING CRP MILD HIGH CHECK CCP, SHASHANK. IEP. WBC HIGHER 16K CRP HIGH PROCALCITONIN NEG UA NEG BC 2 NEG NO RESPIRATORY SS CT AND MRI IN AM.
[2023-06-14] MEDS: MONTELUKAST 10 MG TAB PO SCH (21:04)
[2023-06-14] MEDS: TRAZODONE 50 MG TABLET PO SCH (21:04)
[2023-06-15 02:57] LABS: Absolute Lymphocytes (CBC) 1.7 K/uL (0.7-4.9); MCV 84.4 fL (80-100); MPV 8.5 fL (7.6-11.3); Platelets 367 thou/uL (152-406); RBC Red Blood Cell Count 4.03 M/uL (4.33-5.43)
[2023-06-15 03:17] LABS: Potassium 3.9 mEq/L (3.5-5.1)
[2023-06-15] MEDS: PANTOPRAZOLE 40MG TABLET PO SCH (06:15)
[2023-06-15] MEDS: carvediloL 12.5 MG TAB PO SCH (06:15)
[2023-06-15] MEDS: LEVOTHYROXINE SOD 0.025 MG TAB PO SCH (06:15)
--- NOTE | 2023-06-15 08:23 | RAD REPORT ---
EXAM DESCRIPTION: MRI - Hip Left Wo Cont - 06/15/2023 8:12 am CLINICAL HISTORY: post fall; inconclusive CT COMPARISON: Hip Left Wo Con dated 06/12/2023 FINDINGS: There is moderately severe bilateral osteoarthritis present. There is no fracture or dislocation seen. No mild edema is seen in the pubic symphysis, with subtle a djacent edema in the obturator musculature anteriorly. No MR evidence of avascular necrosis. No iliopsoas bursitis. No muscle tear. No soft tissue mass or hematoma. No significant joint effusion. IMPRESSION: Moderate bilateral osteoarthritis is present. Mild edema in the pubic symphysis with mild adjacent muscle strain pattern suggests bone bruising.
--- NOTE | 2023-06-15 08:38 | RAD REPORT ---
EXAM DESCRIPTION: CT - Chest Abdomen Pelvis W Cont - 06/15/2023 8:23 am CLINICAL HISTORY: Chest and abdomen pain. leukocytosis, unexplained COMPARISON: No comparisons TECHNIQUE: A limited noncontrast examination was performed. All CT scans are performed using dose optimization technique as appropriate and may include automated exposure control or mA/KV adjustment according to patient size. FINDINGS: The lungs are clear.No pleural or pericardial effusion.No intrathoracic adenopathy.Cholecy stectomy clips. Postsurgical changes about the stomach. The liver, spleen, pancreas, adrenal glands and kidneys are within normal limits. 5.5 cm benign left renal cyst. No bowel obstruction, free air, free fluid or abscess. The appendix is not identified as a discrete s tructure, however, no secondary findings of appendicitis are identified. Moderate stool throughout t he colon. No pathologic lymphadenopathy in the abdomen or pelvis. Mild degenerative changes throughout the spine. IMPRESSION: No acute finding is demonstrated.
[2023-06-15] MEDS: ENOXAPARIN 30 MG/0.3 ML SQ SCH (09:00)
[2023-06-15] MEDS ORDERED: Enoxaparin 120 MG/0.8 ML SYR SQ SCH ×2 (09:00→21:00)
[2023-06-15] MEDS: DAPAGLIFLOZIN PO SCH (09:00)
[2023-06-15] MEDS: INSULN SQ SCH (09:00)
[2023-06-15] MEDS: [UNRECOGNIZED DRUG - OTHER] PO SCH (09:00)
[2023-06-15] MEDS: METFORMIN HCL PO SCH (09:00)
[2023-06-15] MEDS: INSULIN DEGLUDEC 100 UNIT/ML SQ SCH (09:00)
[2023-06-15] MEDS: FUROSEMIDE 20 MG TABLET PO SCH (09:50)
[2023-06-15] MEDS: LORATADINE 10 MG TAB PO SCH (09:50)
[2023-06-15] MEDS: ROSUVASTATIN 5 MG TAB PO SCH (09:50)
[2023-06-15] MEDS: allopurinoL 100 MG TAB PO SCH (09:51)
[2023-06-15 09:55] VITALS: BP 140/64
[2023-06-15] MEDS: lisinopriL 20 MG TAB PO SCH (09:55)
[2023-06-15] MEDS: GABAPENTIN 300 MG CAP PO SCH ×2 (09:55→14:12)
[2023-06-15 11:09] VITALS: TEMP 98.6
--- NOTE | 2023-06-15 12:03 | P.DS ---
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 HE LATER FELL AND HURT L KNEE AND HIP. DR LADD ASKED FOR CT SCAN OF HIP SUSPECTING FRACTURE AND ASKED HIM NOT TO WALK. THAT IS WHY IS NOT WALKING. ER PA DID NOT GET THIS HISTORY. HE HAS LOW GRADE LEUKOCYTOSIS LATELY. Hospital Course: MR. DC GOT WEAK WITH DIARRRHEA AND VOMITING, THAT RESOLVED. HE GOT WEAK AND FELL, HAD L HIP PAIN. [facility] COULD NOT DO MRI AT 3:30 PM ON THURSDAY SO HE HAD TO WAIT UNTIL TODAY. HIS MRI SHOWS NO BROKEN BONE. I ALSO DID CT CHEST ABDOMEN PELVIS, BC 2, PROCAL HE HAS CHRONIC LEUKOCYTOSIS AND ALL THAT HANEY IS NEGVATIVE. HIS INR WAS LOW. HE WILL FU WITH DR. KINNEY FOR IT. HE WILL FU AT OFFICE FOR US. Vital Signs/Physical Exam: Temp Pulse Resp BP Pulse Ox 98.6 F 64 18 140/64 96 06/15/23 08:00 06/15/23 09:55 06/15/23 08:00 06/15/23 09:55 06/15/23 08:00 Laboratory Data at Discharge: WBC 14.60 thou/uL (4.3-10.9) H 06/15/23 01:44 Hgb 10.9 g/dL (13.6-17.9) L 06/15/23 01:44 Hct 34.0 % (39.6-49.0) L 06/15/23 01:44 Plt Count 367 thou/uL (152-406) 06/15/23 01:44 PT 18.0 SECONDS (9.5-12.5) H 06/14/23 03:18 INR 1.64 06/14/23 03:18 Sodium 140 mEq/L (136-145) 06/15/23 01:44 Potassium 3.9 mEq/L (3.5-5.1) D 06/15/23 01:44 BUN 18 mg/dL (7-18) 06/15/23 01:44 Creatinine 0.98 mg/dL (0.70-1.30) 06/15/23 01:44 Glucose 126 mg/dL (74-106) H 06/15/23 01:44 Total Bilirubin 0.7 mg/dL (0.2-1.0) 06/12/23 09:50 AST 10 U/L (15-37) L 06/12/23 09:50 ALT 20 U/L (16-61) 06/12/23 09:50 Alkaline Phosphatase 91 U/L (45-117) 06/12/23 09:50 Lipase 39 U/L (13-75) 06/12/23 09:50 Home Medications: Carvedilol [Coreg] 12.5 mg PO BID 6AM 6PM 06/12/23 Colchicine [Mitigare] 0.6 mg PO BID PRN 06/12/23 Dapagliflozin/Metformin HCl [Xigduo Xr 10 mg-1,000 mg Tab] 1 tab PO DAILY 06/12/23 Furosemide 20 mg PO DAILY 06/12/23 Gabapentin 300 mg PO TID 06/12/23 Insulin Degludec [Tresiba Flextouch U-100] 20 units SQ DAILY 06/12/23 Levothyroxine Sodium [Levothyroxine] 25 mcg PO [id number] 06/12/23 Loratadine [Claritin*] 10 mg PO DAILY 06/12/23 Magnesium Glycinate, Mag Oxide [Magnesium Glycinate] 420 mg PO DAILY 06/12/23 Montelukast [Singulair*] 10 mg PO BEDTIME 06/12/23 Pantoprazole Sodium 40 mg PO DAILY 06/12/23 Rosuvastatin Calcium 5 mg PO DAILY 06/12/23 Tirzepatide [Mounjaro] 5 mg SQ SEECOM 06/12/23 Trazodone HCl 100 mg PO BEDTIME PRN 06/12/23 Warfarin Sodium 10 mg PO DAILY 06/12/23 allopurinoL [Allopurinol] 200 mg PO DAILY 06/12/23 lisinopriL [Lisinopril] 20 mg PO DAILY 06/12/23 methocarbamoL [Methocarbamol] 750 mg PO TID PRN 06/12/23 traMADol HCL [Ultram*] 50 mg PO TID PRN 06/12/23 Followup: Kenny Rios MD [Primary Care Provider] -
[2023-06-15 16:14] VITALS: O2SAT 96
== END 2023-06-15 15:20 | disposition home or self-care (01) | DRG 641 ==
LOC: ER 09:31 → ERHOLD 11:33 → 2ND 12:45
PROVIDERS: ADMIT Internal Medicine; ATTEND Internal Medicine
DX: E86.0 Dehydration (principal); K52.9 Noninfective gastroenteritis and colitis, unspecified; E11.9 Type 2 diabetes mellitus without complications; I10 Essential (primary) hypertension; M10.9 Gout, unspecified; E03.9 Hypothyroidism, unspecified; E78.00 Pure hypercholesterolemia, unspecified; G89.29 Other chronic pain; M13.851 Other specified arthritis, right hip; D72.829 Elevated white blood cell count, unspecified; E66.01 Morbid (severe) obesity due to excess calories; S79.912A Unspecified injury of left hip, initial encounter; Z95.2 Presence of prosthetic heart valve; Z79.4 Long term (current) use of insulin; Z79.02 Long term (current) use of antithrombotics/antiplatelets; Z79.01 Long term (current) use of anticoagulants; Z11.52 Encounter for screening for COVID-19; Z90.49 Acquired absence of other specified parts of digestive tract; Z98.84 Bariatric surgery status; Z68.35 Body mass index [BMI] 35.0-35.9, adult; Z86.711 Personal history of pulmonary embolism; Z79.890 Hormone replacement therapy; Z79.899 Other long term (current) drug therapy
CPT/HCPCS: 36415; 71260; 73700; 74177; 80048; 80053; 81001; 81003; 82728; 82947; 83605; 83690; 84145; 84484; 85025; 85610; 86038; 86140; 86200; 86334; 87040; 87045; 87046; 87177; 87209; 87324; 87329; 87804; 87811; 89055; 93005; 96361; 96372; 96374; 97110; 97116; 97161; 97530; 99284; 99285; J0500; J1650; J2405; J7030; Q9967

== ENCOUNTER 2024-01-22 11:44 | Emergency (ER) | payer OTHER ==
--- OUTSIDE RECORDS SUMMARY | 2024-01-22 11:49 | XMS REPORT | Continuity of Care Document ---
Author Name Unknown Address [address] [place] [address] [facility] thconnect Address [address] [facility] [address] [place] [address] Care Team Providers Care Shorthand Teacher Name Role Phone Radha Garibay Primary Care Physician [phone] Montez Nguyen Attending Clinician Unavailable SIENA GARIBAY Attending Clinician Sandra Perez Attending Clinician Unavaila Fausto [facility] Attending Clinician Unavailable [facility] Attending Clinician Nicky Mendiola MD Attending Clinician [phone] NICKY EDWARDS Attending Clinician Unavailjaneen salguero Doctor Unassigned, [place] Attending Clinician U Miguel Cisneros Attending Clinician Radha Vieyra Attending Clinician [phone] RADHA GARIBAY Attending Clinician Unavailable Montez Nguyen Admitting Clinician Unavailable Chris Admitting Clinician SIENA Aguilar Admitting Clinician Unavailabl e Payers Payer Name Policy Type Policy Number Effective Date Expirati on Date Source [employer] - CHOICE (POS II) [id number] 2021 00:00:00 [employer] 53 [id number] [facility] [place] Problems Condition Name Condition Details Condition Category Status Onset Date Resolution Date Last Treatment Date Treating Clinician Comments Source 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 Problem Active 3 00:00: 00 [facility] Osteoarthr itis of right hip joint Osteoarthr itis of Right Hip Joint Problem Active 2022-08 00:00: 00 [facility] Hip pain Hip Pain Problem Active 2022-08 00:00: 00 [facility] Osteoarthr itis of left knee joint Osteoarthr itis of Left Knee Joint Problem Active 2022-08 0 00:00: 00 [facility] Osteoarthr itis of left hip joint Osteoarthr itis of Left Hip Joint Problem Active 2022-08 0 00:00: 00 [facility] Pain of left knee joint Pain of Left Knee Joint Problem Active 2022-08 0 00:00: 00 [facility] Pain in pelvis Pain in Pelvis Problem Active 2022-08 0 00:00: 00 [facility] Primary coxarthros is, bilateral Primary Coxarthros is, Bilateral Problem Active 2022-08 0 00:00: 00 [facility] Pain in right knee Pain in Right Knee Problem Active 01-29 00:00: 00 [facility] [id number] Renal lesion Problem [facility] [id number] Complex renal cyst Problem [facility] [id number] Left kidney mass Problem [facility] Allergies, Adverse Reactions, Alerts Allergy Name Allergy Type Status Severity Reaction(s) Onset Date Inactive Date Treating Clinician Comments Source No Known Allergie s DA Active U 02-01 00:00: 00 [facility] No Known Allergie s DA Active U 02-01 00:00: 00 [facility] codeine DA Active U UNKNOWN 01-31 00:00: 00 [facility] ibuprofe n DA Active U UNKNOWN 01-31 00:00: 00 [facility] heparin DA Active U UNKNOWN 01-31 00:00: 00 [facility] codeine DA Active U 01-31 00:00: 00 [facility] ibuprofe n DA Active U 01-31 00:00: 00 [facility] heparin DA Active U 01-31 00:00: 00 [facility] Heparin Analogue s DA Active U 02-09 00:00: 00 [facility] codeine DA Active U 02-09 00:00: 00 [facility] ibuprofe n DA Active U 02-09 00:00: 00 [facility] NO KNOWN ALLERGIE S Drug Class Active [facility] Social History Social Habit Start Date Stop Date Quantity Comments Source History of Tobacco Use [facility] Sex Assigned At [facility] Smoking Status Start Date Stop Date Source Unknown if ever smoked [facility] Never Smoker [facility] Medications Ordered Medication Name Filled Medication Name Start Date Stop Date Current Medication? Ordering Clinician Indication Dosage Frequency Signature (SIG) Comments Components Source warfarin 10 mg tablet TAKE 1 TABLET BY MOUTH EVERY DAY FOR 30 DAYS warfarin 10 mg tablet TAKE 1 TABLET BY MOUTH EVERY DAY FOR 30 DAYS No warfarin 10 mg tablet TAKE 1 TABLET BY MOUTH EVERY DAY FOR 30 DAYS [facility] Xigduo XR 10 mg-1,000 mg tablet,exte nded release TAKE 1 TABLET BY MOUTH EVERY DAY IN THE MORNING WITH FOOD Xigduo XR 10 mg-1,000 mg tablet,exte nded release TAKE 1 TABLET BY MOUTH EVERY DAY IN THE MORNING WITH FOOD No Xigduo XR 10 mg-1,000 mg tablet,ext ended release TAKE 1 TABLET BY MOUTH EVERY DAY IN THE MORNING WITH FOOD [facility] allopurinol 100 mg tablet TAKE 2 TABLETS BY MOUTH EVERY DAY allopurinol 100 mg tablet TAKE 2 TABLETS BY MOUTH EVERY DAY No allopurino l 100 mg tablet TAKE 2 TABLETS BY MOUTH EVERY DAY [facility] bupropion HCl XL 150 mg 24 hr tablet, extended release TAKE 1 TABLET BY MOUTH EVERY DAY IN THE MORNING bupropion HCl XL 150 mg 24 hr tablet, extended release TAKE 1 TABLET BY MOUTH EVERY DAY IN THE MORNING No bupropion HCl XL 150 mg 24 hr tablet, extended release TAKE 1 TABLET BY MOUTH EVERY DAY IN THE MORNING [facility] carvedilol 12.5 mg tablet TAKE 1 TABLET BY MOUTH TWICE A DAY WITH FOOD FOR 90 DAYS carvedilol 12.5 mg tablet TAKE 1 TABLET BY MOUTH TWICE A DAY WITH FOOD FOR 90 DAYS No carvedilol 12.5 mg tablet TAKE 1 TABLET BY MOUTH TWICE A DAY WITH FOOD FOR 90 DAYS [facility] dexamethaso ne 4 mg tablet TAKE 1 TABLET BY MOUTH THREE TIMES A DAY dexamethaso ne 4 mg tablet TAKE 1 TABLET BY MOUTH THREE TIMES A DAY No dexamethas one 4 mg tablet TAKE 1 TABLET BY MOUTH THREE TIMES A DAY [facility] diclofenac 1 % topical gel APPLY 5 GRAMS TO AFFECTED AREA(S) 4 TIMES A DAY NEEDED diclofenac 1 % topical gel APPLY 5 GRAMS TO AFFECTED AREA(S) 4 TIMES A DAY NEEDED No diclofenac 1 % topical gel APPLY 5 GRAMS TO AFFECTED AREA(S) 4 TIMES A DAY NEEDED [facility] doxycycline hyclate 100 mg capsule TAKE 1 CAPSULE BY MOUTH TWICE A DAY FOR 14 DAYS doxycycline hyclate 100 mg capsule TAKE 1 CAPSULE BY MOUTH TWICE A DAY FOR 14 DAYS No doxycyclin e hyclate 100 mg capsule TAKE 1 CAPSULE BY MOUTH TWICE A DAY FOR 14 DAYS [facility] furosemide 40 mg tablet TAKE 1 TABLET BY MOUTH EVERY DAY FOR 90 DAYS furosemide 40 mg tablet TAKE 1 TABLET BY MOUTH EVERY DAY FOR 90 DAYS No furosemide 40 mg tablet TAKE 1 TABLET BY MOUTH EVERY DAY FOR 90 DAYS [facility] gabapentin 300 mg capsule TAKE 1 CAPSULE BY MOUTH THREE TIMES A DAY gabapentin 300 mg capsule TAKE 1 CAPSULE BY MOUTH THREE TIMES A DAY No gabapentin 300 mg capsule TAKE 1 CAPSULE BY MOUTH THREE TIMES A DAY [facility] Hibiclens 4 % topical liquid Apply 1 application every day by topical route as directed for 5 days. Hibiclens 4 % topical liquid Apply 1 application every day by topical route as directed for 5 days. No 1applic ation(s ) Q1D Hibiclens 4 % topical liquid Apply 1 applicatio n every day by topical route as directed for 5 days. [facility] levothyroxi ne 25 mcg tablet TAKE 1 TABLET BY MOUTH EVERY DAY IN THE MORNING levothyroxi ne 25 mcg tablet TAKE 1 TABLET BY MOUTH EVERY DAY IN THE MORNING No levothyrox ine 25 mcg tablet TAKE 1 TABLET BY MOUTH EVERY DAY IN THE MORNING [facility] lisinopril 20 mg tablet TAKE 1 TABLET BY MOUTH EVERY DAY FOR 90 DAYS lisinopril 20 mg tablet TAKE 1 TABLET BY MOUTH EVERY DAY FOR 90 DAYS No lisinopril 20 mg tablet TAKE 1 TABLET BY MOUTH EVERY DAY FOR 90 DAYS [facility] loratadine 10 mg tablet TAKE 1 TABLET BY MOUTH EVERY DAY loratadine 10 mg tablet TAKE 1 TABLET BY MOUTH EVERY DAY No loratadine 10 mg tablet TAKE 1 TABLET BY MOUTH EVERY DAY [facility] methocarbam ol 750 mg tablet TAKE 1 TABLET BY MOUTH THREE TIMES A DAY methocarbam ol 750 mg tablet TAKE 1 TABLET BY MOUTH THREE TIMES A DAY No methocarba mol 750 mg tablet TAKE 1 TABLET BY MOUTH THREE TIMES A DAY [facility] montelukast 10 mg tablet TAKE 1 TABLET BY MOUTH EVERY DAY montelukast 10 mg tablet TAKE 1 TABLET BY MOUTH EVERY DAY No montelukas t 10 mg tablet TAKE 1 TABLET BY MOUTH EVERY DAY [facility] Mounjaro 5 mg/0.5 mL subcutaneou s pen injector INJECT 5 MG SUBCUTANEOU SLY WEEKLY Mounjaro 5 mg/0.5 mL subcutaneou s pen injector INJECT 5 MG SUBCUTANEOU SLY WEEKLY No Mounjaro 5 mg/0.5 mL subcutaneo us pen injector INJECT 5 MG SUBCUTANEO USLY WEEKLY [facility] mupirocin 2 % topical ointment APPLY A SMALL AMOUNT TO EACH NOSTRIL DAILY STARTING 5 DAYS PRIOR TO SURGERY mupirocin 2 % topical ointment APPLY A SMALL AMOUNT TO EACH NOSTRIL DAILY STARTING 5 DAYS PRIOR TO SURGERY No mupirocin 2 % topical ointment APPLY A SMALL AMOUNT TO EACH NOSTRIL DAILY STARTING 5 DAYS PRIOR TO SURGERY [facility] ondansetron 4 mg disintegrat ing tablet DISSOLVE 1 TABLET BY MOUTH EVERY 6 HOURS NEEDED FOR NAUSEA ondansetron 4 mg disintegrat ing tablet DISSOLVE 1 TABLET BY MOUTH EVERY 6 HOURS NEEDED FOR NAUSEA No ondansetro n 4 mg disintegra ting tablet DISSOLVE 1 TABLET BY MOUTH EVERY 6 HOURS NEEDED FOR NAUSEA [facility] pantoprazol e 40 mg tablet,soraya yed release TAKE ONE (1) TABLET BY MOUTH IN THE MORNING. pantoprazol e 40 mg tablet,soraya yed release TAKE ONE (1) TABLET BY MOUTH IN THE MORNING. No pantoprazo le 40 mg tablet,del ayed release TAKE ONE (1) TABLET BY MOUTH IN THE MORNING. [facility] rosuvastati n 10 mg tablet TAKE 1 TABLET BY MOUTH EVERY DAY rosuvastati n 10 mg tablet TAKE 1 TABLET BY MOUTH EVERY DAY No rosuvastat in 10 mg tablet TAKE 1 TABLET BY MOUTH EVERY DAY [facility] tizanidine 4 mg tablet TAKE 1 TABLET BY MOUTH EVERY 8 HOURS NEEDED FOR MUSCLE SPASM tizanidine 4 mg tablet TAKE 1 TABLET BY MOUTH EVERY 8 HOURS NEEDED FOR MUSCLE SPASM No tizanidine 4 mg tablet TAKE 1 TABLET BY MOUTH EVERY 8 HOURS NEEDED FOR MUSCLE SPASM [facility] tramadol 50 mg tablet TAKE 1 TABLET BY MOUTH EVERY 4 TO 6 HOURS NEEDED FOR PAIN tramadol 50 mg tablet TAKE 1 TABLET BY MOUTH EVERY 4 TO 6 HOURS NEEDED FOR PAIN No tramadol 50 mg tablet TAKE 1 TABLET BY MOUTH EVERY 4 TO 6 HOURS NEEDED FOR PAIN [facility] Tresiba FlexTouch U-200 insulin 200 unit/mL (3 mL) subcutaneou s pen INJECT 20 UNITS SUBCUTANEOU SLY ONCE A DAY Tresiba FlexTouch U-200 insulin 200 unit/mL (3 mL) subcutaneou s pen INJECT 20 UNITS SUBCUTANEOU SLY ONCE A DAY No Tresiba FlexTouch U-200 insulin 200 unit/mL (3 mL) subcutaneo us pen INJECT 20 UNITS SUBCUTANEO USLY ONCE A DAY [facility] warfarin 10 mg tablet TAKE 1 TABLET BY MOUTH EVERY DAY warfarin 10 mg tablet TAKE 1 TABLET BY MOUTH EVERY DAY No warfarin 10 mg tablet TAKE 1 TABLET BY MOUTH EVERY DAY [facility] Xigduo XR 10 mg-1,000 mg tablet,exte nded release TAKE 1 TABLET BY MOUTH EVERY DAY IN THE MORNING WITH FOOD Xigduo XR 10 mg-1,000 mg tablet,exte nded release TAKE 1 TABLET BY MOUTH EVERY DAY IN THE MORNING WITH FOOD No Xigduo XR 10 mg-1,000 mg tablet,ext ended release TAKE 1 TABLET BY MOUTH EVERY DAY IN THE MORNING WITH FOOD [facility] allopurinol 100 mg tablet TAKE 2 TABLETS BY MOUTH EVERY DAY allopurinol 100 mg tablet TAKE 2 TABLETS BY MOUTH EVERY DAY No allopurino l 100 mg tablet TAKE 2 TABLETS BY MOUTH EVERY DAY [facility] bupropion HCl XL 150 mg 24 hr tablet, extended release TAKE 1 TABLET BY MOUTH EVERY DAY IN THE MORNING bupropion HCl XL 150 mg 24 hr tablet, extended release TAKE 1 TABLET BY MOUTH EVERY DAY IN THE MORNING No bupropion HCl XL 150 mg 24 hr tablet, extended release TAKE 1 TABLET BY MOUTH EVERY DAY IN THE MORNING [facility] carvedilol 12.5 mg tablet TAKE 1 TABLET BY MOUTH TWICE A DAY WITH FOOD FOR 90 DAYS carvedilol 12.5 mg tablet TAKE 1 TABLET BY MOUTH TWICE A DAY WITH FOOD FOR 90 DAYS No carvedilol 12.5 mg tablet TAKE 1 TABLET BY MOUTH TWICE A DAY WITH FOOD FOR 90 DAYS [facility] dexamethaso ne 4 mg tablet TAKE 1 TABLET BY MOUTH THREE TIMES A DAY dexamethaso ne 4 mg tablet TAKE 1 TABLET BY MOUTH THREE TIMES A DAY No dexamethas one 4 mg tablet TAKE 1 TABLET BY MOUTH THREE TIMES A DAY [facility] diclofenac 1 % topical gel APPLY 5 GRAMS TO AFFECTED AREA(S) 4 TIMES A DAY NEEDED diclofenac 1 % topical gel APPLY 5 GRAMS TO AFFECTED AREA(S) 4 TIMES A DAY NEEDED No diclofenac 1 % topical gel APPLY 5 GRAMS TO AFFECTED AREA(S) 4 TIMES A DAY NEEDED [facility] doxycycline hyclate 100 mg capsule TAKE 1 CAPSULE BY MOUTH TWICE A DAY FOR 14 DAYS doxycycline hyclate 100 mg capsule TAKE 1 CAPSULE BY MOUTH TWICE A DAY FOR 14 DAYS No doxycyclin e hyclate 100 mg capsule TAKE 1 CAPSULE BY MOUTH TWICE A DAY FOR 14 DAYS [facility] FreeStyle Hima 14 Day Sensor kit USE DIRECTED AND CHANGE SENSOR EVERY 14 DAYS FreeStyle Hima 14 Day Sensor kit USE DIRECTED AND CHANGE SENSOR EVERY 14 DAYS No FreeStyle Hima 14 Day Sensor kit USE DIRECTED AND CHANGE SENSOR EVERY 14 DAYS [facility] furosemide 40 mg tablet TAKE 1 TABLET BY MOUTH EVERY DAY FOR 90 DAYS furosemide 40 mg tablet TAKE 1 TABLET BY MOUTH EVERY DAY FOR 90 DAYS No furosemide 40 mg tablet TAKE 1 TABLET BY MOUTH EVERY DAY FOR 90 DAYS [facility] gabapentin 300 mg capsule TAKE 1 CAPSULE BY MOUTH THREE TIMES A DAY gabapentin 300 mg capsule TAKE 1 CAPSULE BY MOUTH THREE TIMES A DAY No gabapentin 300 mg capsule TAKE 1 CAPSULE BY MOUTH THREE TIMES A DAY [facility] Hibiclens 4 % topical liquid Apply 1 application every day by topical route as directed for 5 days. Hibiclens 4 % topical liquid Apply 1 application every day by topical route as directed for 5 days. No 1applic ation(s ) Q1D Hibiclens 4 % topical liquid Apply 1 applicatio n every day by topical route as directed for 5 days. [facility] levothyroxi ne 25 mcg tablet TAKE 1 TABLET BY MOUTH EVERY DAY IN THE MORNING levothyroxi ne 25 mcg tablet TAKE 1 TABLET BY MOUTH EVERY DAY IN THE MORNING No levothyrox ine 25 mcg tablet TAKE 1 TABLET BY MOUTH EVERY DAY IN THE MORNING [facility] lisinopril 20 mg tablet TAKE 1 TABLET BY MOUTH EVERY DAY FOR 90 DAYS lisinopril 20 mg tablet TAKE 1 TABLET BY MOUTH EVERY DAY FOR 90 DAYS No lisinopril 20 mg tablet TAKE 1 TABLET BY MOUTH EVERY DAY FOR 90 DAYS [facility] loratadine 10 mg tablet TAKE 1 TABLET BY MOUTH EVERY DAY loratadine 10 mg tablet TAKE 1 TABLET BY MOUTH EVERY DAY No loratadine 10 mg tablet TAKE 1 TABLET BY MOUTH EVERY DAY [facility] methocarbam ol 750 mg tablet TAKE 1 TABLET BY MOUTH THREE TIMES A DAY methocarbam ol 750 mg tablet TAKE 1 TABLET BY MOUTH THREE TIMES A DAY No methocarba mol 750 mg tablet TAKE 1 TABLET BY MOUTH THREE TIMES A DAY [facility] montelukast 10 mg tablet TAKE 1 TABLET BY MOUTH EVERY DAY montelukast 10 mg tablet TAKE 1 TABLET BY MOUTH EVERY DAY No montelukas t 10 mg tablet TAKE 1 TABLET BY MOUTH EVERY DAY [facility] Mounjaro 5 mg/0.5 mL subcutaneou s pen injector INJECT 5 MG SUBCUTANEOU SLY WEEKLY Mounjaro 5 mg/0.5 mL subcutaneou s pen injector INJECT 5 MG SUBCUTANEOU SLY WEEKLY No Mounjaro 5 mg/0.5 mL subcutaneo us pen injector INJECT 5 MG SUBCUTANEO USLY WEEKLY [facility] mupirocin 2 % topical ointment APPLY A SMALL AMOUNT TO EACH NOSTRIL DAILY STARTING 5 DAYS PRIOR TO SURGERY mupirocin 2 % topical ointment APPLY A SMALL AMOUNT TO EACH NOSTRIL DAILY STARTING 5 DAYS PRIOR TO SURGERY No mupirocin 2 % topical ointment APPLY A SMALL AMOUNT TO EACH NOSTRIL DAILY STARTING 5 DAYS PRIOR TO SURGERY [facility] ondansetron 4 mg disintegrat ing tablet DISSOLVE 1 TABLET BY MOUTH EVERY 6 HOURS NEEDED FOR NAUSEA ondansetron 4 mg disintegrat ing tablet DISSOLVE 1 TABLET BY MOUTH EVERY 6 HOURS NEEDED FOR NAUSEA No ondansetro n 4 mg disintegra ting tablet DISSOLVE 1 TABLET BY MOUTH EVERY 6 HOURS NEEDED FOR NAUSEA [facility] pantoprazol e 40 mg tablet,soraya yed release TAKE ONE (1) TABLET BY MOUTH IN THE MORNING. pantoprazol e 40 mg tablet,soraya yed release TAKE ONE (1) TABLET BY MOUTH IN THE MORNING. No pantoprazo le 40 mg tablet,del ayed release TAKE ONE (1) TABLET BY MOUTH IN THE MORNING. [facility] rosuvastati n 10 mg tablet TAKE 1 TABLET BY MOUTH EVERY DAY rosuvastati n 10 mg tablet TAKE 1 TABLET BY MOUTH EVERY DAY No rosuvastat in 10 mg tablet TAKE 1 TABLET BY MOUTH EVERY DAY [facility] tizanidine 4 mg tablet TAKE 1 TABLET BY MOUTH EVERY 8 HOURS NEEDED FOR MUSCLE SPASM tizanidine 4 mg tablet TAKE 1 TABLET BY MOUTH EVERY 8 HOURS NEEDED FOR MUSCLE SPASM No tizanidine 4 mg tablet TAKE 1 TABLET BY MOUTH EVERY 8 HOURS NEEDED FOR MUSCLE SPASM [facility] tramadol 50 mg tablet TAKE 1 TABLET BY MOUTH EVERY 4 TO 6 HOURS NEEDED FOR PAIN tramadol 50 mg tablet TAKE 1 TABLET BY MOUTH EVERY 4 TO 6 HOURS NEEDED FOR PAIN No tramadol 50 mg tablet TAKE 1 TABLET BY MOUTH EVERY 4 TO 6 HOURS NEEDED FOR PAIN [facility] Tresiba FlexTouch U-200 insulin 200 unit/mL (3 mL) subcutaneou s pen INJECT 20 UNITS SUBCUTANEOU SLY ONCE A DAY Tresiba FlexTouch U-200 insulin 200 unit/mL (3 mL) subcutaneou s pen INJECT 20 UNITS SUBCUTANEOU SLY ONCE A DAY No Tresiba FlexTouch U-200 insulin 200 unit/mL (3 mL) subcutaneo us pen INJECT 20 UNITS SUBCUTANEO USLY ONCE A DAY [facility] warfarin 10 mg tablet TAKE 1 TABLET BY MOUTH EVERY DAY warfarin 10 mg tablet TAKE 1 TABLET BY MOUTH EVERY DAY No warfarin 10 mg tablet TAKE 1 TABLET BY MOUTH EVERY DAY [facility] Xigduo XR 10 mg-1,000 mg tablet,exte nded release TAKE 1 TABLET BY MOUTH EVERY DAY IN THE MORNING WITH FOOD Xigduo XR 10 mg-1,000 mg tablet,exte nded release TAKE 1 TABLET BY MOUTH EVERY DAY IN THE MORNING WITH FOOD No Xigduo XR 10 mg-1,000 mg tablet,ext ended release TAKE 1 TABLET BY MOUTH EVERY DAY IN THE MORNING WITH FOOD [facility] allopurinol 100 mg tablet TAKE 2 TABLETS BY MOUTH EVERY DAY allopurinol 100 mg tablet TAKE 2 TABLETS BY MOUTH EVERY DAY No allopurino l 100 mg tablet TAKE 2 TABLETS BY MOUTH EVERY DAY [facility] bupropion HCl XL 150 mg 24 hr tablet, extended release TAKE 1 TABLET BY MOUTH EVERY DAY IN THE MORNING bupropion HCl XL 150 mg 24 hr tablet, extended release TAKE 1 TABLET BY MOUTH EVERY DAY IN THE MORNING No bupropion HCl XL 150 mg 24 hr tablet, extended release TAKE 1 TABLET BY MOUTH EVERY DAY IN THE MORNING [facility] carvedilol 12.5 mg tablet TAKE 1 TABLET BY MOUTH TWICE A DAY WITH FOOD FOR 90 DAYS carvedilol 12.5 mg tablet TAKE 1 TABLET BY MOUTH TWICE A DAY WITH FOOD FOR 90 DAYS No carvedilol 12.5 mg tablet TAKE 1 TABLET BY MOUTH TWICE A DAY WITH FOOD FOR 90 DAYS [facility] carvedilol 6.25 mg tablet TAKE 1 TABLET BY MOUTH TWICE A DAY WITH FOOD FOR 90 DAYS 90 DAYS carvedilol 6.25 mg tablet TAKE 1 TABLET BY MOUTH TWICE A DAY WITH FOOD FOR 90 DAYS 90 DAYS No carvedilol 6.25 mg tablet TAKE 1 TABLET BY MOUTH TWICE A DAY WITH FOOD FOR 90 DAYS 90 DAYS [facility] dexamethaso ne 4 mg tablet TAKE 1 TABLET BY MOUTH THREE TIMES A DAY dexamethaso ne 4 mg tablet TAKE 1 TABLET BY MOUTH THREE TIMES A DAY No dexamethas one 4 mg tablet TAKE 1 TABLET BY MOUTH THREE TIMES A DAY [facility] Dexcom G6 Sensor device USE DIRECTED FOR DIABETES CONTROL Dexcom G6 Sensor device USE DIRECTED FOR DIABETES CONTROL No Dexcom G6 Sensor device USE DIRECTED FOR DIABETES CONTROL [facility] FreeStyle Hima 14 Day Sensor kit USE DIRECTED AND CHANGE SENSOR EVERY 14 DAYS FreeStyle Hima 14 Day Sensor kit USE DIRECTED AND CHANGE SENSOR EVERY 14 DAYS No FreeStyle Hima 14 Day Sensor kit USE DIRECTED AND CHANGE SENSOR EVERY 14 DAYS [facility] FreeStyle Hima 2 [place] TO BE USED FOR CONTINUOUS GLUCOSE MONITORING FreeStyle Hima 2 [place] TO BE USED FOR CONTINUOUS GLUCOSE MONITORING No FreeStyle Hima 2 [place] TO BE USED FOR CONTINUOUS GLUCOSE MONITORING [facility] furosemide 40 mg tablet TAKE 1 TABLET BY MOUTH EVERY DAY FOR 90 DAYS furosemide 40 mg tablet TAKE 1 TABLET BY MOUTH EVERY DAY FOR 90 DAYS No furosemide 40 mg tablet TAKE 1 TABLET BY MOUTH EVERY DAY FOR 90 DAYS [facility] levothyroxi ne 25 mcg tablet TAKE 1 TABLET BY MOUTH EVERY DAY IN THE MORNING levothyroxi ne 25 mcg tablet TAKE 1 TABLET BY MOUTH EVERY DAY IN THE MORNING No levothyrox ine 25 mcg tablet TAKE 1 TABLET BY MOUTH EVERY DAY IN THE MORNING [facility] lisinopril 20 mg tablet TAKE 1 TABLET BY MOUTH EVERY DAY FOR 90 DAYS lisinopril 20 mg tablet TAKE 1 TABLET BY MOUTH EVERY DAY FOR 90 DAYS No lisinopril 20 mg tablet TAKE 1 TABLET BY MOUTH EVERY DAY FOR 90 DAYS [facility] loratadine 10 mg tablet TAKE 1 TABLET BY MOUTH EVERY DAY loratadine 10 mg tablet TAKE 1 TABLET BY MOUTH EVERY DAY No loratadine 10 mg tablet TAKE 1 TABLET BY MOUTH EVERY DAY [facility] methocarbam ol 750 mg tablet TAKE 1 TABLET BY MOUTH THREE TIMES A DAY methocarbam ol 750 mg tablet TAKE 1 TABLET BY MOUTH THREE TIMES A DAY No methocarba mol 750 mg tablet TAKE 1 TABLET BY MOUTH THREE TIMES A DAY [facility] montelukast 10 mg tablet TAKE 1 TABLET BY MOUTH EVERY DAY montelukast 10 mg tablet TAKE 1 TABLET BY MOUTH EVERY DAY No montelukas t 10 mg tablet TAKE 1 TABLET BY MOUTH EVERY DAY [facility] Mounjaro 5 mg/0.5 mL subcutaneou s pen injector INJECT 5 MG SUBCUTANEOU SLY WEEKLY Mounjaro 5 mg/0.5 mL subcutaneou s pen injector INJECT 5 MG SUBCUTANEOU SLY WEEKLY No Mounjaro 5 mg/0.5 mL subcutaneo us pen injector INJECT 5 MG SUBCUTANEO USLY WEEKLY [facility] pantoprazol e 40 mg tablet,soraya yed release TAKE ONE (1) TABLET BY MOUTH IN THE MORNING. pantoprazol e 40 mg tablet,soraya yed release TAKE ONE (1) TABLET BY MOUTH IN THE MORNING. No pantoprazo le 40 mg tablet,del ayed release TAKE ONE (1) TABLET BY MOUTH IN THE MORNING. [facility] pregabalin 50 mg capsule TAKE 1 CAPSULE BY MOUTH THREE TIMES A DAY pregabalin 50 mg capsule TAKE 1 CAPSULE BY MOUTH THREE TIMES A DAY No pregabalin 50 mg capsule TAKE 1 CAPSULE BY MOUTH THREE TIMES A DAY [facility] rosuvastati n 10 mg tablet TAKE 1 TABLET BY MOUTH EVERY DAY rosuvastati n 10 mg tablet TAKE 1 TABLET BY MOUTH EVERY DAY No rosuvastat in 10 mg tablet TAKE 1 TABLET BY MOUTH EVERY DAY [facility] Tresiba FlexTouch U-200 insulin 200 unit/mL (3 mL) subcutaneou s pen INJECT 20 UNITS SUBCUTANEOU SLY ONCE A DAY Tresiba FlexTouch U-200 insulin 200 unit/mL (3 mL) subcutaneou s pen INJECT 20 UNITS SUBCUTANEOU SLY ONCE A DAY No Tresiba FlexTouch U-200 insulin 200 unit/mL (3 mL) subcutaneo us pen INJECT 20 UNITS SUBCUTANEO USLY ONCE A DAY [facility] warfarin 10 mg tablet DIRECTED 31 DAYS warfarin 10 mg tablet DIRECTED 31 DAYS No warfarin 10 mg tablet DIRECTED 31 DAYS [facility] Xigduo XR 10 mg-1,000 mg tablet,exte nded release TAKE 1 TABLET BY MOUTH EVERY DAY IN THE MORNING WITH FOOD Xigduo XR 10 mg-1,000 mg tablet,exte nded release TAKE 1 TABLET BY MOUTH EVERY DAY IN THE MORNING WITH FOOD No Xigduo XR 10 mg-1,000 mg tablet,ext ended release TAKE 1 TABLET BY MOUTH EVERY DAY IN THE MORNING WITH FOOD [facility] allopurinol 100 mg tablet TAKE 2 TABLETS BY MOUTH EVERY DAY allopurinol 100 mg tablet TAKE 2 TABLETS BY MOUTH EVERY DAY No allopurino l 100 mg tablet TAKE 2 TABLETS BY MOUTH EVERY DAY [facility] carvedilol 12.5 mg tablet TAKE 1 TABLET BY MOUTH TWICE A DAY WITH FOOD FOR 90 DAYS carvedilol 12.5 mg tablet TAKE 1 TABLET BY MOUTH TWICE A DAY WITH FOOD FOR 90 DAYS No carvedilol 12.5 mg tablet TAKE 1 TABLET BY MOUTH TWICE A DAY WITH FOOD FOR 90 DAYS [facility] dexamethaso ne 4 mg tablet TAKE 1 TABLET BY MOUTH THREE TIMES A DAY dexamethaso ne 4 mg tablet TAKE 1 TABLET BY MOUTH THREE TIMES A DAY No dexamethas one 4 mg tablet TAKE 1 TABLET BY MOUTH THREE TIMES A DAY [facility] diclofenac 1 % topical gel APPLY 5 GRAMS TO AFFECTED AREA(S) 4 TIMES A DAY NEEDED diclofenac 1 % topical gel APPLY 5 GRAMS TO AFFECTED AREA(S) 4 TIMES A DAY NEEDED No diclofenac 1 % topical gel APPLY 5 GRAMS TO AFFECTED AREA(S) 4 TIMES A DAY NEEDED [facility] furosemide 40 mg tablet TAKE 1 TABLET BY MOUTH EVERY DAY FOR 90 DAYS furosemide 40 mg tablet TAKE 1 TABLET BY MOUTH EVERY DAY FOR 90 DAYS No furosemide 40 mg tablet TAKE 1 TABLET BY MOUTH EVERY DAY FOR 90 DAYS [facility] gabapentin 300 mg capsule TAKE 1 CAPSULE BY MOUTH THREE TIMES A DAY gabapentin 300 mg capsule TAKE 1 CAPSULE BY MOUTH THREE TIMES A DAY No gabapentin 300 mg capsule TAKE 1 CAPSULE BY MOUTH THREE TIMES A DAY [facility] Hibiclens 4 % topical liquid Apply 1 application every day by topical route as directed for 5 days. Hibiclens 4 % topical liquid Apply 1 application every day by topical route as directed for 5 days. No 1applic ation(s ) Q1D Hibiclens 4 % topical liquid Apply 1 applicatio n every day by topical route as directed for 5 days. [facility] levothyroxi ne 25 mcg tablet TAKE 1 TABLET BY MOUTH EVERY DAY IN THE MORNING levothyroxi ne 25 mcg tablet TAKE 1 TABLET BY MOUTH EVERY DAY IN THE MORNING No levothyrox ine 25 mcg tablet TAKE 1 TABLET BY MOUTH EVERY DAY IN THE MORNING [facility] lisinopril 20 mg tablet TAKE 1 TABLET BY MOUTH EVERY DAY FOR 90 DAYS lisinopril 20 mg tablet TAKE 1 TABLET BY MOUTH EVERY DAY FOR 90 DAYS No lisinopril 20 mg tablet TAKE 1 TABLET BY MOUTH EVERY DAY FOR 90 DAYS [facility] loratadine 10 mg tablet TAKE 1 TABLET BY MOUTH EVERY DAY loratadine 10 mg tablet TAKE 1 TABLET BY MOUTH EVERY DAY No loratadine 10 mg tablet TAKE 1 TABLET BY MOUTH EVERY DAY [facility] methocarbam ol 750 mg tablet TAKE 1 TABLET BY MOUTH THREE TIMES A DAY methocarbam ol 750 mg tablet TAKE 1 TABLET BY MOUTH THREE TIMES A DAY No methocarba mol 750 mg tablet TAKE 1 TABLET BY MOUTH THREE TIMES A DAY [facility] montelukast 10 mg tablet TAKE 1 TABLET BY MOUTH EVERY DAY montelukast 10 mg tablet TAKE 1 TABLET BY MOUTH EVERY DAY No montelukas t 10 mg tablet TAKE 1 TABLET BY MOUTH EVERY DAY [facility] Mounjaro 5 mg/0.5 mL subcutaneou s pen injector INJECT FIVE (5) MG UNDER THE SKIN ONCE WEEKLY. Mounjaro 5 mg/0.5 mL subcutaneou s pen injector INJECT FIVE (5) MG UNDER THE SKIN ONCE WEEKLY. No Mounjaro 5 mg/0.5 mL subcutaneo us pen injector INJECT FIVE (5) MG UNDER THE SKIN ONCE WEEKLY. [facility] mupirocin 2 % topical ointment APPLY A SMALL AMOUNT TO EACH NOSTRIL DAILY STARTING 5 DAYS PRIOR TO SURGERY mupirocin 2 % topical ointment APPLY A SMALL AMOUNT TO EACH NOSTRIL DAILY STARTING 5 DAYS PRIOR TO SURGERY No mupirocin 2 % topical ointment APPLY A SMALL AMOUNT TO EACH NOSTRIL DAILY STARTING 5 DAYS PRIOR TO SURGERY [facility] ondansetron 4 mg disintegrat ing tablet DISSOLVE 1 TABLET BY MOUTH EVERY 6 HOURS NEEDED FOR NAUSEA ondansetron 4 mg disintegrat ing tablet DISSOLVE 1 TABLET BY MOUTH EVERY 6 HOURS NEEDED FOR NAUSEA No ondansetro n 4 mg disintegra ting tablet DISSOLVE 1 TABLET BY MOUTH EVERY 6 HOURS NEEDED FOR NAUSEA [facility] pantoprazol e 40 mg tablet,soraya yed release TAKE ONE (1) TABLET BY MOUTH IN THE MORNING. pantoprazol e 40 mg tablet,soraya yed release TAKE ONE (1) TABLET BY MOUTH IN THE MORNING. No pantoprazo le 40 mg tablet,del ayed release TAKE ONE (1) TABLET BY MOUTH IN THE MORNING. [facility] rosuvastati n 10 mg tablet TAKE 1 TABLET BY MOUTH EVERY DAY rosuvastati n 10 mg tablet TAKE 1 TABLET BY MOUTH EVERY DAY No rosuvastat in 10 mg tablet TAKE 1 TABLET BY MOUTH EVERY DAY [facility] tramadol 50 mg tablet TAKE 1 TABLET BY MOUTH EVERY 6 TO 8 HOURS NEEDED tramadol 50 mg tablet TAKE 1 TABLET BY MOUTH EVERY 6 TO 8 HOURS NEEDED No tramadol 50 mg tablet TAKE 1 TABLET BY MOUTH EVERY 6 TO 8 HOURS NEEDED [facility] Tresiba FlexTouch U-200 insulin 200 unit/mL (3 mL) subcutaneou s pen INJECT 20 UNITS SUBCUTANEOU SLY ONCE A DAY Tresiba FlexTouch U-200 insulin 200 unit/mL (3 mL) subcutaneou s pen INJECT 20 UNITS SUBCUTANEOU SLY ONCE A DAY No Tresiba FlexTouch U-200 insulin 200 unit/mL (3 mL) subcutaneo us pen INJECT 20 UNITS SUBCUTANEO USLY ONCE A DAY [facility] warfarin 10 mg tablet TAKE 1 TABLET BY MOUTH EVERY DAY FOR 30 DAYS warfarin 10 mg tablet TAKE 1 TABLET BY MOUTH EVERY DAY FOR 30 DAYS No warfarin 10 mg tablet TAKE 1 TABLET BY MOUTH EVERY DAY FOR 30 DAYS [facility] Xigduo XR 10 mg-1,000 mg tablet,exte nded release TAKE 1 TABLET BY MOUTH EVERY DAY IN THE MORNING WITH FOOD Xigduo XR 10 mg-1,000 mg tablet,exte nded release TAKE 1 TABLET BY MOUTH EVERY DAY IN THE MORNING WITH FOOD No Xigduo XR 10 mg-1,000 mg tablet,ext ended release TAKE 1 TABLET BY MOUTH EVERY DAY IN THE MORNING WITH FOOD [facility] allopurinol 100 mg tablet TAKE 2 TABLETS BY MOUTH EVERY DAY allopurinol 100 mg tablet TAKE 2 TABLETS BY MOUTH EVERY DAY No allopurino l 100 mg tablet TAKE 2 TABLETS BY MOUTH EVERY DAY [facility] bupropion HCl XL 150 mg 24 hr tablet, extended release TAKE 1 TABLET BY MOUTH EVERY DAY IN THE MORNING bupropion HCl XL 150 mg 24 hr tablet, extended release TAKE 1 TABLET BY MOUTH EVERY DAY IN THE MORNING No bupropion HCl XL 150 mg 24 hr tablet, extended release TAKE 1 TABLET BY MOUTH EVERY DAY IN THE MORNING [facility] carvedilol 12.5 mg tablet TAKE 1 TABLET BY MOUTH TWICE A DAY WITH FOOD FOR 90 DAYS carvedilol 12.5 mg tablet TAKE 1 TABLET BY MOUTH TWICE A DAY WITH FOOD FOR 90 DAYS No carvedilol 12.5 mg tablet TAKE 1 TABLET BY MOUTH TWICE A DAY WITH FOOD FOR 90 DAYS [facility] dexamethaso ne 4 mg tablet TAKE 1 TABLET BY MOUTH THREE TIMES A DAY dexamethaso ne 4 mg tablet TAKE 1 TABLET BY MOUTH THREE TIMES A DAY No dexamethas one 4 mg tablet TAKE 1 TABLET BY MOUTH THREE TIMES A DAY [facility] diclofenac 1 % topical gel APPLY 5 GRAMS TO AFFECTED AREA(S) 4 TIMES A DAY NEEDED diclofenac 1 % topical gel APPLY 5 GRAMS TO AFFECTED AREA(S) 4 TIMES A DAY NEEDED No diclofenac 1 % topical gel APPLY 5 GRAMS TO AFFECTED AREA(S) 4 TIMES A DAY NEEDED [facility] doxycycline hyclate 100 mg capsule TAKE 1 CAPSULE BY MOUTH TWICE A DAY FOR 14 DAYS doxycycline hyclate 100 mg capsule TAKE 1 CAPSULE BY MOUTH TWICE A DAY FOR 14 DAYS No doxycyclin e hyclate 100 mg capsule TAKE 1 CAPSULE BY MOUTH TWICE A DAY FOR 14 DAYS [facility] furosemide 40 mg tablet TAKE 1 TABLET BY MOUTH EVERY DAY FOR 90 DAYS furosemide 40 mg tablet TAKE 1 TABLET BY MOUTH EVERY DAY FOR 90 DAYS No furosemide 40 mg tablet TAKE 1 TABLET BY MOUTH EVERY DAY FOR 90 DAYS [facility] gabapentin 300 mg capsule TAKE 1 CAPSULE BY MOUTH THREE TIMES A DAY gabapentin 300 mg capsule TAKE 1 CAPSULE BY MOUTH THREE TIMES A DAY No gabapentin 300 mg capsule TAKE 1 CAPSULE BY MOUTH THREE TIMES A DAY [facility] Hibiclens 4 % topical liquid Apply 1 application every day by topical route as directed for 5 days. Hibiclens 4 % topical liquid Apply 1 application every day by topical route as directed for 5 days. No 1applic ation(s ) Q1D Hibiclens 4 % topical liquid Apply 1 applicatio n every day by topical route as directed for 5 days. [facility] levothyroxi ne 25 mcg tablet TAKE 1 TABLET BY MOUTH EVERY DAY IN THE MORNING levothyroxi ne 25 mcg tablet TAKE 1 TABLET BY MOUTH EVERY DAY IN THE MORNING No levothyrox ine 25 mcg tablet TAKE 1 TABLET BY MOUTH EVERY DAY IN THE MORNING [facility] lisinopril 20 mg tablet TAKE 1 TABLET BY MOUTH EVERY DAY FOR 90 DAYS lisinopril 20 mg tablet TAKE 1 TABLET BY MOUTH EVERY DAY FOR 90 DAYS No lisinopril 20 mg tablet TAKE 1 TABLET BY MOUTH EVERY DAY FOR 90 DAYS [facility] loratadine 10 mg tablet TAKE 1 TABLET BY MOUTH EVERY DAY loratadine 10 mg tablet TAKE 1 TABLET BY MOUTH EVERY DAY No loratadine 10 mg tablet TAKE 1 TABLET BY MOUTH EVERY DAY [facility] methocarbam ol 750 mg tablet TAKE 1 TABLET BY MOUTH THREE TIMES A DAY methocarbam ol 750 mg tablet TAKE 1 TABLET BY MOUTH THREE TIMES A DAY No methocarba mol 750 mg tablet TAKE 1 TABLET BY MOUTH THREE TIMES A DAY [facility] montelukast 10 mg tablet TAKE 1 TABLET BY MOUTH EVERY DAY montelukast 10 mg tablet TAKE 1 TABLET BY MOUTH EVERY DAY No montelukas t 10 mg tablet TAKE 1 TABLET BY MOUTH EVERY DAY [facility] Mounjaro 5 mg/0.5 mL subcutaneou s pen injector INJECT FIVE (5) MG UNDER THE SKIN ONCE WEEKLY. Mounjaro 5 mg/0.5 mL subcutaneou s pen injector INJECT FIVE (5) MG UNDER THE SKIN ONCE WEEKLY. No Mounjaro 5 mg/0.5 mL subcutaneo us pen injector INJECT FIVE (5) MG UNDER THE SKIN ONCE WEEKLY. [facility] mupirocin 2 % topical ointment APPLY A SMALL AMOUNT TO EACH NOSTRIL DAILY STARTING 5 DAYS PRIOR TO SURGERY mupirocin 2 % topical ointment APPLY A SMALL AMOUNT TO EACH NOSTRIL DAILY STARTING 5 DAYS PRIOR TO SURGERY No mupirocin 2 % topical ointment APPLY A SMALL AMOUNT TO EACH NOSTRIL DAILY STARTING 5 DAYS PRIOR TO SURGERY [facility] ondansetron 4 mg disintegrat ing tablet DISSOLVE 1 TABLET BY MOUTH EVERY 6 HOURS NEEDED FOR NAUSEA ondansetron 4 mg disintegrat ing tablet DISSOLVE 1 TABLET BY MOUTH EVERY 6 HOURS NEEDED FOR NAUSEA No ondansetro n 4 mg disintegra ting tablet DISSOLVE 1 TABLET BY MOUTH EVERY 6 HOURS NEEDED FOR NAUSEA [facility] pantoprazol e 40 mg tablet,soraya yed release TAKE ONE (1) TABLET BY MOUTH IN THE MORNING. pantoprazol e 40 mg tablet,soraya yed release TAKE ONE (1) TABLET BY MOUTH IN THE MORNING. No pantoprazo le 40 mg tablet,del ayed release TAKE ONE (1) TABLET BY MOUTH IN THE MORNING. [facility] rosuvastati n 10 mg tablet TAKE 1 TABLET BY MOUTH EVERY DAY rosuvastati n 10 mg tablet TAKE 1 TABLET BY MOUTH EVERY DAY No rosuvastat in 10 mg tablet TAKE 1 TABLET BY MOUTH EVERY DAY [facility] tizanidine 4 mg tablet TAKE 1 TABLET BY MOUTH EVERY 8 HOURS NEEDED FOR MUSCLE SPASM tizanidine 4 mg tablet TAKE 1 TABLET BY MOUTH EVERY 8 HOURS NEEDED FOR MUSCLE SPASM No tizanidine 4 mg tablet TAKE 1 TABLET BY MOUTH EVERY 8 HOURS NEEDED FOR MUSCLE SPASM [facility] tramadol 50 mg tablet TAKE 1 TABLET BY MOUTH EVERY 4 TO 6 HOURS NEEDED FOR PAIN tramadol 50 mg tablet TAKE 1 TABLET BY MOUTH EVERY 4 TO 6 HOURS NEEDED FOR PAIN No tramadol 50 mg tablet TAKE 1 TABLET BY MOUTH EVERY 4 TO 6 HOURS NEEDED FOR PAIN [facility] Tresiba FlexTouch U-200 insulin 200 unit/mL (3 mL) subcutaneou s pen INJECT 20 UNITS SUBCUTANEOU SLY ONCE A DAY Tresiba FlexTouch U-200 insulin 200 unit/mL (3 mL) subcutaneou s pen INJECT 20 UNITS SUBCUTANEOU SLY ONCE A DAY No Tresiba FlexTouch U-200 insulin 200 unit/mL (3 mL) subcutaneo us pen INJECT 20 UNITS SUBCUTANEO USLY ONCE A DAY [facility] Lisinopril 20 MG Lisinopril 20 MG No 1{table t} QD Lisinopril 20 MG Ferrocite 324 MG Ferrocite 324 MG No 1{table t} Ferrocite 324 MG Warfarin Sodium 10 MG Warfarin Sodium 10 MG No 1{table t} QD Warfarin Sodium 10 MG Allopurinol 100 MG Allopurinol 100 MG No 1{table t} QD Allopurino l 100 MG Pantoprazol e Sodium 40 MG Pantoprazol e Sodium 40 MG No 1{table t} QD Pantoprazo le Sodium 40 MG Magnesium 400 MG Magnesium 400 MG No Magnesium 400 MG Carvedilol 12.5 MG Carvedilol 12.5 MG No 1{table t_with_ food} BID Carvedilol 12.5 MG Furosemide 20 MG Furosemide 20 MG No 1{table t} QD Furosemide 20 MG Tresiba 100 UNIT/ML Tresiba 100 UNIT/ML No Tresiba 100 UNIT/ML Ozempic (0.25 or 0.5 MG/DOSE) 2 MG/1.5ML Ozempic (0.25 or 0.5 MG/DOSE) 2 MG/1.5ML No Ozempic (0.25 or 0.5 MG/DOSE) 2 MG/1.5ML traMADol HCl 50 MG traMADol HCl 50 MG No 1{table t_as_ne eded} QD traMADol HCl 50 MG Rosuvastati n Calcium 5 MG Rosuvastati n Calcium 5 MG No 1{table t} QD Rosuvastat in Calcium 5 MG Loratadine 10 MG Loratadine 10 MG No 1{table t} QD Loratadine 10 MG Phospha 250 Neutral 155-852-130 MG Phospha 250 Neutral 155-852-130 MG No 1{table t} QID Phospha 250 Neutral 155-852-13 0 MG metFORMIN HCl 500 MG metFORMIN HCl 500 MG No 1{table t_with_ a_meal} QD metFORMIN HCl 500 MG Montelukast Sodium 10 MG Montelukast Sodium 10 MG No 1{table t} QD Montelukas t Sodium 10 MG Lisinopril 20 MG Lisinopril 20 MG No 1{table t} QD Lisinopril 20 MG Ferrocite 324 MG Ferrocite 324 MG No 1{table t} Ferrocite 324 MG Warfarin Sodium 10 MG Warfarin Sodium 10 MG No 1{table t} QD Warfarin Sodium 10 MG Allopurinol 100 MG Allopurinol 100 MG No 1{table t} QD Allopurino l 100 MG Pantoprazol e Sodium 40 MG Pantoprazol e Sodium 40 MG No 1{table t} QD Pantoprazo le Sodium 40 MG Magnesium 400 MG Magnesium 400 MG No Magnesium 400 MG Carvedilol 12.5 MG Carvedilol 12.5 MG No 1{table t_with_ food} BID Carvedilol 12.5 MG Furosemide 20 MG Furosemide 20 MG No 1{table t} QD Furosemide 20 MG Tresiba 100 UNIT/ML Tresiba 100 UNIT/ML No Tresiba 100 UNIT/ML Ozempic (0.25 or 0.5 MG/DOSE) 2 MG/1.5ML Ozempic (0.25 or 0.5 MG/DOSE) 2 MG/1.5ML No Ozempic (0.25 or 0.5 MG/DOSE) 2 MG/1.5ML traMADol HCl 50 MG traMADol HCl 50 MG No 1{table t_as_ne eded} QD traMADol HCl 50 MG Rosuvastati n Calcium 5 MG Rosuvastati n Calcium 5 MG No 1{table t} QD Rosuvastat in Calcium 5 MG Loratadine 10 MG Loratadine 10 MG No 1{table t} QD Loratadine 10 MG Phospha 250 Neutral 155-852-130 MG Phospha 250 Neutral 155-852-130 MG No 1{table t} QID Phospha 250 Neutral 155-852-13 0 MG metFORMIN HCl 500 MG metFORMIN HCl 500 MG No 1{table t_with_ a_meal} QD metFORMIN HCl 500 MG Montelukast Sodium 10 MG Montelukast Sodium 10 MG No 1{table t} QD Montelukas t Sodium 10 MG Vital Signs Vital Name Observation Time Observation Value Comments S ource Height 2023-09-09 00:00:00 75 [in_i] [facility] Body Weight 2023-09-09 00:00:00 285 [lb_av] [facility] BMI (Body Mass Index) 2023-06-18 00:00:00 35.6 kg/m2 [facility] Body Weight 2023-06-18 00:00:00 285 [lb_av] [facility] Height 2023-06-18 00:00:00 75 [in_i] [facility] blood pressure diastolic 2022-10-31 09:30:00 68 mm[Hg] [facility] height 2022-10-31 09:30:00 74 [in_i] [facility] weight 2022-10-31 09:30:00 295 [lb_av] [facility] temperature 2022-10-31 09:30:00 97.9 [degF] [facility] bmi 2022-10-31 09:30:00 37.87 kg/m2 [facility] oximetry 2022-10-31 09:30:00 97 % [facility] respiratory rate 2022-10-31 09:30:00 16 /min [facility] blood pressure systolic 2022-10-31 09:30:00 139 mm[Hg] [facility] height 2022-09-24 11:45:00 74 [in_i] [facility]mo n [facility] weight 2022-09-24 11:45:00 303 [lb_av] [facility] temperature 2022-09-24 11:45:00 98.1 [degF] [facility] bmi 2022-09-24 11:45:00 38.9 kg/m2 Com[facility] oximetry 2022-09-24 11:45:00 99 % Commo n [facility] respiratory rate 2022-09-24 11:45:00 18 /min [facility] blood pressure systolic 2022-09-24 11:45:00 129 mm[Hg] [facility] blood pressure diastolic 2022-09-24 11:45:00 76 mm[Hg] [facility] Procedures Procedure Date / Time Performed Performing Clinician Source RADEX PELVIS 1/2 VIEWS 2023-08-05 00:00:00 [facility] [id number] 2023-06-23 00:00:00 [facility] [id number] 2023-06-23 00:00:00 [facility] Total Replacement of Right Hip Joint 2023-06-23 00:00:00 [facility] XR, knee, 1 or 2 view 2023-06-09 00:00:00 [facility] RADEX PELVIS 1/2 VIEWS 2023-06-09 00:00:[address] [facility] [address], hip, w/o contrast 2023-06-09 00:00:00 [facility] RADEX PELVIS 1/2 VIEWS 2023-05-26 00:00:00 [facility] ASSIGNMENT OF BENEFITS 2021-05-10 20:36:23 Docto r Unassigned, [place] [facility] XR KNEE 3 VW RIGHT 2021-01-21 17:17:29 Malcolm Garibay [facility] ASSIGNMENT OF BENEFITS 2021-01-21 16:58:20 Docto r Unassigned, [place] [facility] Hip Replacement [facility] K[facility] W[facility] Encounters Start Date/Time End Date/Time Encounter Type Admission Type Attending Clinicians Care Facility Care Department Encounter ID Source 2023-06-10 11:00:00 Inpatient Mnotez Turner [facility] RADI [id number] 2022-09-24 11:09:02 Outpatient SIENA GARIBAY [facility] [id number] [facility] 2023-11-14 00:00:00 2023-11-14 00:00:00 Outpatient JUSTIN_Gris Schuster AO AO [id number] [facility] 2023-11-05 12:55:00 2023-11-05 12:55:00 Outpatient Fausto Mays [facility] [id number] [facility] 2023-10-21 00:00:00 2023-10-21 00:00:00 BRITTANI Noel: [id number] [place] [address] , Ph. [phone] [place] [facility] [place] [facility] [id number] [facility] 2023-09-09 00:00:00 2023-09-09 00:00:00 Montez Nguyen MD: [address] [place] [address] , Ph. [phone] [facility] [place] [facility] [place] [facility] [id number] [facility] 2023-08-07 00:00:00 2023-08-07 00:00:00 Outpatient FOG_Gris Schuster AO AO [id number] [facility] 2023-08-05 00:00:00 2023-08-05 00:00:00 Montez Nguyen MD: [address] [place] [address] , Ph. [phone] [facility] [place] [facility] [place] [facility] [id number] [facility] 2023-07-10 00:00:00 2023-07-10 00:00:00 Valeria Morrison PA: [address] [place] [address] , Ph. [phone] [facility] [place] [facility] [place] [facility] [id number] [facility] 2023-06-25 12:11:00 2023-06-27 15:53:00 Inpatient EL Montez Nguyen [facility]AT[facility] SURG [id number] 78 [facility] 2023-06-23 16:13:00 2023-06-23 16:13:00 Outpatient Montez Nguyen HCACL LABO [id number] [facility] 2023-06-18 00:00:00 2023-06-18 00:00:00 Outpatient FOG_Gris Schuster AO AO [id number] [facility] 2023-06-18 00:00:00 2023-06-18 00:00:00 Outpatient FOG_Gris Schuster A[facility] AO [id number] [facility] 2023-06-18 00:00:00 2023-06-18 00:00:00 Outpatient FOG_Gris Schuster AOSM AO [id number] [facility] 2023-06-18 00:00:00 2023-06-18 00:00:00 Montez Nguyen MD: [address] [place] [address] , Ph. [phone] [facility] [place] [facility] [place] [facility] [id number] [facility] 2023-06-16 16:19:00 2023-06-16 16:19:00 Outpatient Montez Turner [facility] [id number] [facility] [place] [facility] 2023-06-16 00:00:00 2023-06-16 00:00:00 Montez Nguyen MD: [address] [place], [place] [address] , Ph. [phone] [facility] [place] [facility] [place] [facility] [id number] [facility] 2023-06-09 00:00:00 2023-06-09 00:00:00 Outpatient FOG_Gris Schuster A[facility] AO [id number] [facility] 2023-06-09 00:00:00 2023-06-09 00:00:00 Outpatient FOG_Gris Schuster A[facility] AO [id number] [facility] 2023-06-09 00:00:00 2023-06-09 00:00:00 Outpatient FOG_Gris Schuster A[facility] AO [id number] [facility] 2023-06-09 00:00:00 2023-06-09 00:00:00 Montez Nguyen MD: [address] [place], [place] [address] , Ph. [phone] [facility] [place] [facility] [place] [facility] [id number] [facility] 2023-06-02 00:00:00 2023-06-02 00:00:00 Outpatient FOG_Burke_R Mariely AOSM AOSM [id number] [facility] 2023-05-26 00:00:00 2023-05-26 00:00:00 Montez Nguyen MD: [address] [place] [address] , Ph. [phone] [facility] [place] [facility] [place] [facility] [id number] [facility] 2023-05-19 00:00:00 2023-05-19 00:00:00 Outpatient FOG_Gris Schuster A[facility] AO [id number] [facility] 2023-05-19 00:00:00 2023-05-19 00:00:00 Outpatient FOG_Gris Schuster [facility] AO [id number] [facility] 2023-05-19 00:00:00 2023-05-19 00:00:00 Outpatient FOG_Gris Schuster AOSM AOSM [id number] [facility] 2023-05-18 00:00:00 2023-05-18 00:00:00 Outpatient FOG_Gris Schuster AOSM AOSM [id number] [facility] 2022-10-31 00:00:00 2022-10-31 00:00:00 OFFICE VISIT ESTAB PT LEVEL 3 STLMLC STLMLC [id number] [facility] 2022-09-24 00:00:00 2022-09-24 00:00:00 OFFICE VISIT NEW PT LEVEL 3 STLMLC STLMLC [id number] [facility] 2021-05-10 15:36:43 2021-05-10 15:51:43 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 Pob, Adc Lab Main Dave, Nicky [facility] [id number] [facility] 2021-05-10 15:45:00 2021-05-10 15:45:00 Outpatient NICKY NGUYEN [facility] [id number] [facility] 2021-05-10 00:00:00 2021-05-10 00:00:00 Orders Only Doctor Unassigned, [place] [facility] [id number] [facility] 2021-04-24 10:07:00 2021-04-24 10:07:00 Outpatient Miguel Beltran HCAWU SURG [id number] 63 [facility] 2021-02-01 05:52:00 2021-02-01 05:52:00 Outpatient Montez Turenr HCATO DAYS [id number] [facility] 2021-01-21 12:02:03 2021-01-21 23:59:00 Hospital Encounter [facility] [id number] [facility] 2021-01-21 12:02:03 2021-01-21 23:59:00 Hospital Encounter [facility] [id number] 2021-01-21 00:00:00 2021-01-21 00:00:00 Outpatient Fannie [facility] [id number] [facility] 2021-01-21 00:00:00 2021-01-21 00:00:00 Orders Only Doctor Unassigned, [place] [facility] 1.20.114 [id number] [facility] 2021-01-21 00:00:00 2021-01-21 00:00:00 Orders Only Doctor Unassigned, [place] [address]2.840.114 [id number] Results Test Description Test Time Test Comments Results Resul t Comments Source - CTA HEART W CN ART/GRAFTS 2023-11-06 00:00:00 [facility] : 1955 Sex: M Name: ABDULAZIZ MARTINEZ [facility] : 1955 Age/S: 68 / M [address] [place] [address] Unit #: [id number] Loc: [place] [address] Phys: Fausto Valenzuela MD Cardiology Acct: [id number] Dis Date: Status: DEP CLI PHONE #: [phone] Exam Date: 11/05/2023 [facility] FAX #: [phone] Reason: EXAMS: CPT CODE: [id number] CTA HEART W CN ART/GRAFTS 85239 Radiation Dose CTDIVOL = 78.52 (mGy): DLP = 837.48 (mGy-cm) PROCEDURE INFORMATION: Exam: CTA Heart And Coronary Arteries With Contrast Exam date and time: 11/05/2023 1:49 PM Age: 68 years old Clinical indication: Pain; Angina pectoris TECHNIQUE: Imaging protocol: CT angiography of the heart, coronary arteries, and bypass grafts (when present) with contrast including 3D image postprocessing. Standard prospective cardiac-gated CAC scoring protocol was used for image acquisition. Following intravenous contrast administration, ECG gated CTA was performed. 3D rendering (Not supervised by radiologist): MIP and/or 3D reconstructed images were created by the technologist. Cardiac gating: Retrospective Gating Radiation optimization: All CT scans at this facility use at least one of these dose optimization techniques: automated exposure control; mA and/or kV adjustment per patient size (includes targeted exams where dose is matched to clinical indication); or iterative reconstruction. Contrast material: ISOUVE 370; Contrast volume: 90 ml; Contrast route: INTRAVENOUS (IV); Pharmacological intervention: None. COMPARISON: No relevant prior studies available. RADIATION DOSE METRICS: CTDI volume (mGy): 78.52 Total DLP (mGy-cm): 837.48 FINDINGS: CALCIUM SCORE: LM Score: 0 LAD Score: 0 LCX Score: 0 RCA Score: 0 PDA Score: 0 Total calcium score (Agatston method): Total calcium score is zero. CORONARY: Left main coronary artery (LMCA): The left main coronary artery is a medium caliber vessel that trifurcates into a left anterior descending artery, left circumflex artery, and ramus intermedius. The left main coronary artery is patent with no evidence plaque or stenosis. Left anterior descending artery (LAD): The left anterior PAGE 1 Signed Report (CONTINUED) Name: ABDULAZIZ MARTINEZ [facility] : 1955 Age/S: 68 / M [address] [place] [address] Bl Unit #: [id number] Loc: [place] [address] Phys: Fausto Valenzuela MD Cardiology Acct: [id number] Dis Date: Status: DEP CLI PHONE #: [phone] Exam Date: 11/05/2023 3454 FAX #: [phone] Reason: EXAMS: CPT CODE: [id number] CTA HEART W CN ART/GRAFTS 02467 (Continued) descending artery is patent with no evidence of plaque or stenosis. The left anterior descending artery gives off 1 patent diagonal branches. Left circumflex artery (LCx): The left circumflex artery is patent with no evidence of plaque or stenosis. The left circumflex artery gives off 2 patent obtuse marginal branches. Right coronary artery (RCA): The right coronary artery is patent with no evidence of plaque or stenosis. The right coronary artery terminates as a posterior descending artery and right posterolateral branch. Coronary artery dominance: Right CARDIAC: Cardiac valves: Status post mechanical aortic valve replacement. Myocardium: Normal wall thickeness. No intraventricular or atrial septal defect is identified. Pericardium: No pericardial effusion or thickening. FUNCTIONAL ANALYSIS: Left ventricular function: Not performed Lungs: Visualized lungs are unremarkable. Mediastinal space: Limited views of the mediastinal space is unremarkable. IMPRESSION: 1. No evidence of coronary artery plaque or stenosis by CT angiography. 2. Postsurgical changes from mechanical aortic valve replacement. at 0612 Reported and signed by: Wilfredo Reddy M.D. CC: Montez Nguyen MD; Fausto Valenzuela MD Technologist:Ruben Da Silva, RT(R)(CT) CTDI: DLP: Trnscb Date/Time: 11/06/2023 (611) t.[id number].[id number] Orig Print D/T: S: 11/06/2023 (611) PAGE 2 Signed Report [id number] 11:38:00* Test Item Value Reference Range Interpretation Comme nts glubed (test code = glubed) 184 mg/dL 60-99 H performing lab: (test code = performing lab:) [facility] Medicine- XR PELVIS 1/2 [id number] 09:44:00 [facility] 1955 Sex: M Patient Name: ABDULAZIZ MARTINEZ Unit No: [id number] EXAMS: CPT CODE: [id number] XR PELVIS 1/2 VIEWS 63787 AP view of the pelvis COMMENT: Completed total right hip arthroplasty. Prosthesis appears to be in good position. at 0944 Reported and signed by: Cristino Reyes M.D. CC: Montez Nguyen MD; Valeria PETER Technologist: Ramesh Paige(R) Transcribed D/ (0944) Stacey [facility] NAME: ABDULAZIZ MARTINEZ [address] [facility] PHYS: Montez Joaquin MD : 1955 AGE: 68 SEX: M [place] [address] LOC: Y.321 A PHONE #: [phone] EXAM DATE: 06/26/2023 STATUS: ADM IN FAX #: [phone] RAD #: D/C DT PAGE 1 Signed Report Patient Name: ABDULAZIZ MARTINEZ Unit No: [id number] EXAMS: CPT CODE: [id number] XR PELVIS 1/2 VIEWS 68498 (Continued) Orig Print D/T: S: 06/27/2023 (0947) [facility] NAME: ABDULAZIZ MARTINEZ [address] [facility] PHYS: Montez Joaquin MD : 1955 AGE: 68 SEX: M [place] [address] LOC: Y.321 A PHONE #: [phone] EXAM DATE: 06/26/2023 STATUS: ADM IN FAX #: [phone] RAD#: D/C DT PAGE 2 Signed ReportBASIC METABOLIC [id number] 08:18:00* Test Item Value Reference Range Interpretation Comme nts SODIUM (test code = NA) 145 mmol/L 136-145 N POTASSIUM (test code = K) 4.8 mmol/L 3.5-5.1 N CHLORIDE (test code = CL) 106.0 mmol/L 98-107 N CARBON DIOXIDE (test code = CO2) 30.0 mmol/L 21-32 N GLUCOSE (test code = GLU) 109 mg/dL 74-106 H BLOOD UREA NITROGEN (test code = BUN) 9 mg/dL 7-18 N GLOMERULAR FILTRATION RATE (test code = GFR) 102.1 >60 The Glomerular Filtration Rate is a calculated parameterbased on serum Creatinine, patient age and sex. GFR valuesless than 60 mL/min/1.73 square meters are indicative ofChronic Kidney Disease. Values less than 15 mL/min/1.73square meters indicate Kidney failure. The calculation forGFR is based on the CKD-EPI (2020) calculation. This formulais race indifferent and is the recommended formula for GFRby the National Kidney Foundation for Adults.The GFR will not calculate if the sex is unknown or if thepatient's age is <18 years. CREATININE (test code = CREAT) 0.69 mg/dL 0.70-1.30 L CALCIUM (test code = CA) 8.5 mg/dL 8.5-10.1 N [id number] 08:18:00* Test Item Value Reference Range Interpretation Comme nts MAGNESIUM (test code = MAG) 1.9 mg/dL 1.8-2.4 N HGB [id number] 08:13:00* Test Item Value Reference Range Interpretation Comme nts HEMOGLOBIN (test code = HGB) 9.1 g/dL 12-16 L HEMATOCRIT (test code = HCT) 30.2 % 37-47 L [id number] 05:44:00* Test Item Value Reference Range Interpretation Comme nts GLUBED (test code = GLUBED) 111 mg/dL 60-99 H The normal fasti ng blood glucose range for a non-diabeticadult is 60-99 mg/dL. Two hours after meals, normal blood glucose levels should beless than 140 mg/dL.Please note new normal range. [id number] 05:28:00* Test Item Value Reference Range Interpretation Comme nts glubed (test code = glubed) 111 mg/dL 60-99 H performing lab: (test code = performing lab:) [facility] Sports [id number] 20:57:00* Test Item Value Reference Range Interpretation Comme nts GLUBED (test code = GLUBED) 136 mg/dL 60-99 H The normal fasti ng blood glucose range for a non-diabeticadult is 60-99 mg/dL. Two hours after meals, normal blood glucose levels should beless than 140 mg/dL.Please note new normal range. [id number] 20:40:00* Test Item Value Reference Range Interpretation Comme nts glubed (test code = glubed) 136 mg/dL 60-99 H performing lab: (test code = performing lab:) [facility] 17:07:00* Test Item Value Reference Range Interpretation Comme nts GLUBED (test code = GLUBED) 121 mg/dL 60-99 H The normal fasti ng blood glucose range for a non-diabeticadult is 60-99 mg/dL. Two hours after meals, normal blood glucose levels should beless than 140 mg/dL.Please note new normal range. [id number] 16:54:00* Test Item Value Reference Range Interpretation Comme nts glubed (test code = glubed) 121 mg/dL 60-99 H performing lab: (test code = performing lab:) [facility] 11:58:00* Test Item Value Reference Range Interpretation Comme nts GLUBED (test code = GLUBED) 126 mg/dL 60-99 H The normal fasti ng blood glucose range for a non-diabeticadult is 60-99 mg/dL. Two hours after meals, normal blood glucose levels should beless than 140 mg/dL.Please note new normal range. [id number] 11:46:00* Test Item Value Reference Range Interpretation Comme nts glubed (test code = glubed) 126 mg/dL 60-99 H performing lab: (test code = performing lab:) [facility] [id number] 07:08:00* Test Item Value Reference Range Interpretation Comme nts PROTHROMBIN TIME PATIENT (test code = PTP) 15.5 secs 9.4-12.5 H INTERNATIONAL NORMAL RATIO (test code = INR) 1.37 <2.0 RECOMMENDED THER APEUTIC RANGE FOR ORAL ANTICOAGULANTTREATMENT: CONDITION INRProphylaxis of venous thrombosis in 2.0 - 3.0 high-risk medical or surgical patientsTreatment of venous thrombosis 2.0 - 3.0Prevention of embolism 2.0 - 3.0Prevention of recurrent embolism, or 3.0 - 4.5 patients with mechanical prosthetic intravascular valves IS PATIENT ON ANTICOAGULANTS ? YLIST ANTICOAGULANT/ANTI PLT MEDICATION : CoumadinHas Lab been notified if Patient is on Heparin Drip? NOBASIC METABOLIC [id number] 06:58:00* Test Item Value Reference Range Interpretation Comme nts SODIUM (test code = NA) 140 mmol/L 136-145 N POTASSIUM (test code = K) 4.3 mmol/L 3.5-5.1 N CHLORIDE (test code = CL) 106.0 mmol/L 98-107 N CARBON DIOXIDE (test code = CO2) 28.5 mmol/L 21-32 N GLUCOSE (test code = GLU) 124 mg/dL 74-106 H BLOOD UREA NITROGEN (test code = BUN) 14 mg/dL 7-18 N GLOMERULAR FILTRATION RATE (test code = GFR) 97.2 >60 The Glomerular Filtration Rate is a calculated parameterbased on serum Creatinine, patient age and sex. GFR valuesless than 60 mL/min/1.73 square meters are indicative ofChronic Kidney Disease. Values less than 15 mL/min/1.73square meters indicate Kidney failure. The calculation forGFR is based on the CKD-EPI (2020) calculation. This formulais race indifferent and is the recommended formula for GFRby the National Kidney Foundation for Adults.The GFR will not calculate if the sex is unknown or if thepatient's age is <18 years. CREATININE (test code = CREAT) 0.81 mg/dL 0.70-1.30 N CALCIUM (test code = CA) 8.0 mg/dL 8.5-10.1 L CBC W/AUTO [id number] 05:56:00* Test Item Value Reference Range Interpretation Comme nts WHITE BLOOD CELL (test code = WBC) 9.0 K/mm3 5.5-11.0 N Please note new normal range. RED BLOOD CELL (test code = RBC) 3.20 M/mm3 4.2-5.4 L HEMOGLOBIN (test code = HGB) 8.6 g/dL 12-16 L HEMATOCRIT (test code = HCT) 28.0 % 37-47 L MEAN CELL VOLUME (test code = MCV) 88 fL 80-98 N MEAN CELL HGB (test code = MCH) 26.9 pg 27-34 L MEAN CELL HGB CONCENTRATION (test code = MCHC) 30.7 g/dL 30.8-34.1 L RED CELL DISTRIBUTION WIDTH (test code = RDW) 14.4 % 11-16 N PLT (test code = PLT) 309 K/mm3 130-400 N MEAN PLATELET VOLUME (test code = MPV) 10.8 fL 8.9-12.1 N NEUTROPHIL % (test code = NT%) 76.1 % 45-70 H LYMPHOCYTE % (test code = LY%) 10.9 % 20-40 L MONOCYTE % (test code = MO%) 8.5 % 3-10 N EOSINOPHIL % (test code = EO%) 3.5 % 1-5 N BASOPHIL % (test code = BA%) 0.6 % 0.0-1.1 N NEUTROPHIL # (test code = NT#) 6.83 K/mm3 2.00-7.50 N LYMPHOCYTE # (test code = LY#) 0.98 K/mm3 1.50-4.00 L MONOCYTE # (test code = MO#) 0.76 K/mm3 0.2-0.8 N EOSINOPHIL # (test code = EO#) 0.31 K/mm3 0.04-0.4 N BASOPHIL # (test code = BA#) 0.05 K/mm3 0.02-0.10 N MANUAL DIFF REQUIRED (test code = MDIFF) NO MANUAL DIFF NUCLEATED RED BLOOD CELL (test code = NRBC) 0 % 0-0 N [id number] 05:01:00* Test Item Value Reference Range Interpretation Comme nts GLUBED (test code = GLUBED) 120 mg/dL 60-99 H The normal fasti blood glucose range for a non-diabeticadult is 60-99 mg/dL. Two hours after meals, normal blood glucose levels should beless than 140 mg/dL.Please note new normal range. [id number] 04:45:00* Test Item Value Reference Range Interpretation Comme nts glubed (test code = glubed) 120 mg/dL 60-99 H performing lab: (test code = performing lab:) [facility] 19:57:00* Test Item Value Reference Range Interpretation Comme nts GLUBED (test code = GLUBED) 218 mg/dL 60-99 H The normal fasti ng blood glucose range for a non-diabeticadult is 60-99 mg/dL. Two hours after meals, normal blood glucose levels should beless than 140 mg/dL.Please note new normal range. [id number] 19:45:00* Test Item Value Reference Range Interpretation Comme nts glubed (test code = glubed) 218 mg/dL 60-99 H performing lab: (test code = performing lab:) [facility] 16:42:00* Test Item Value Reference Range Interpretation Comme nts GLUBED (test code = GLUBED) 145 mg/dL 60-99 H The normal fasti ng blood glucose range for a non-diabeticadult is 60-99 mg/dL. Two hours after meals, normal blood glucose levels should beless than 140 mg/dL.Please note new normal range. [id number] 16:30:00* Test Item Value Reference Range Interpretation Comme nts glubed (test code = glubed) 145 mg/dL 60-99 H performing lab: (test code = performing lab:) [facility] 11:38:00* Test Item Value Reference Range Interpretation Comme nts GLUBED (test code = GLUBED) 147 mg/dL 60-99 H The normal fasti ng blood glucose range for a non-diabeticadult is 60-99 mg/dL. Two hours after meals, normal blood glucose levels should beless than 140 mg/dL.Please note new normal range. [id number] 11:27:00* Test Item Value Reference Range Interpretation Comme nts glubed (test code = glubed) 147 mg/dL 60-99 H performing lab: (test code = performing lab:) [facility] [id number] 09:56:00* Test Item Value Reference Range Interpretation Comme nts SODIUM (test code = NA) 140 mmol/L 136-145 N POTASSIUM (test code = K) 4.5 mmol/L 3.5-5.1 N CHLORIDE (test code = CL) 104.0 mmol/L 98-107 N CARBON DIOXIDE (test code = CO2) 31.0 mmol/L 21-32 N GLUCOSE (test code = GLU) 114 mg/dL 74-106 H BLOOD UREA NITROGEN (test code = BUN) 19 mg/dL 7-18 H GLOMERULAR FILTRATION RATE (test code = GFR) 85.0 >60 The Glomerular Filtration Rate is a calculated parameterbased on serum Creatinine, patient age and sex. GFR valuesless than 60 mL/min/1.73 square meters are indicative ofChronic Kidney Disease. Values less than 15 mL/min/1.73square meters indicate Kidney failure. The calculation forGFR is based on the CKD-EPI (2020) calculation. This formulais race indifferent and is the recommended formula for GFRby the National Kidney Foundation for Adults.The GFR will not calculate if the sex is unknown or if thepatient's age is <18 years. CREATININE (test code = CREAT) 0.98 mg/dL 0.70-1.30 N CALCIUM (test code = CA) 8.3 mg/dL 8.5-10.1 L PROTHROMBIN [id number] 07:49:00* Test Item Value Reference Range Interpretation Comme nts PROTHROMBIN TIME PATIENT (test code = PTP) 16.1 secs 9.4-12.5 H INTERNATIONAL NORMAL RATIO (test code = INR) 1.42 <2.0 RECOMMENDED THER APEUTIC RANGE FOR ORAL ANTICOAGULANTTREATMENT: CONDITION INRProphylaxis of venous thrombosis in 2.0 - 3.0 high-risk medical or surgical patientsTreatment of venous thrombosis 2.0 - 3.0Prevention of embolism 2.0 - 3.0Prevention of recurrent embolism, or 3.0 - 4.5 patients with mechanical prosthetic intravascular valves SPECIMEN COMMENT: on warfarinIS PATIENT ON ANTICOAGULANTS ? YCBC W/AUTO DIFF 2023-06-25 06:32:00* Test Item Value Reference Range Interpretation Comme nts WHITE BLOOD CELL (test code = WBC) 7.8 K/mm3 5.5-11.0 N Please note new normal range. RED BLOOD CELL (test code = RBC) 3.34 M/mm3 4.2-5.4 L HEMOGLOBIN (test code = HGB) 9.0 g/dL 12-16 L HEMATOCRIT (test code = HCT) 29.5 % 37-47 L MEAN CELL VOLUME (test code = MCV) 88 fL 80-98 N MEAN CELL HGB (test code = MCH) 26.9 pg 27-34 L MEAN CELL HGB CONCENTRATION (test code = MCHC) 30.5 g/dL 30.8-34.1 L RED CELL DISTRIBUTION WIDTH (test code = RDW) 14.4 % 11-16 N PLT (test code = PLT) 327 K/mm3 130-400 N MEAN PLATELET VOLUME (test code = MPV) 10.8 fL 8.9-12.1 N NEUTROPHIL % (test code = NT%) 70.1 % 45-70 H LYMPHOCYTE % (test code = LY%) 15.8 % 20-40 L MONOCYTE % (test code = MO%) 9.3 % 3-10 N EOSINOPHIL % (test code = EO%) 3.3 % 1-5 N BASOPHIL % (test code = BA%) 0.9 % 0.0-1.1 N NEUTROPHIL # (test code = NT#) 5.49 K/mm3 2.00-7.50 N LYMPHOCYTE # (test code = LY#) 1.24 K/mm3 1.50-4.00 L MONOCYTE # (test code = MO#) 0.73 K/mm3 0.2-0.8 N EOSINOPHIL # (test code = EO#) 0.26 K/mm3 0.04-0.4 N BASOPHIL # (test code = BA#) 0.07 K/mm3 0.02-0.10 N MANUAL DIFF REQUIRED (test code = MDIFF) NO MANUAL DIFF NUCLEATED RED BLOOD CELL (test code = NRBC) 0 % 0-0 N [id number] 05:13:00* Test Item Value Reference Range Interpretation Comme nts GLUBED (test code = GLUBED) 115 mg/dL 60-99 H The normal fasti blood glucose range for a non-diabeticadult is 60-99 mg/dL. Two hours after meals, normal blood glucose levels should beless than 140 mg/dL.Please note new normal range. [id number] 04:51:00* Test Item Value Reference Range Interpretation Comme nts glubed (test code = glubed) 115 mg/dL 60-99 H performing lab: (test code = performing lab:) [facility]* Test Item Value Reference Range Interpretation Comme nts GLUBED (test code = GLUBED) 149 mg/dL 60-99 H The normal fasti ng blood glucose range for a non-diabeticadult is 60-99 mg/dL. Two hours after meals, normal blood glucose levels should beless than 140 mg/dL.Please note new normal range. [id number] 20:56:00* Test Item Value Reference Range Interpretation Comme nts glubed (test code = glubed) 149 mg/dL 60-99 H performing lab: (test code = performing lab:) [facility] 16:42:00* Test Item Value Reference Range Interpretation Comme nts GLUBED (test code = GLUBED) 125 mg/dL 60-99 H The normal fasti ng blood glucose range for a non-diabeticadult is 60-99 mg/dL. Two hours after meals, normal blood glucose levels should beless than 140 mg/dL.Please note new normal range. [id number] 16:27:00* Test Item Value Reference Range Interpretation Comme nts glubed (test code = glubed) 125 mg/dL 60-99 H performing lab: (test code = performing lab:) [facility] 12:56:00* Test Item Value Reference Range Interpretation Comme nts GLUBED (test code = GLUBED) 126 mg/dL 60-99 H The normal fasti ng blood glucose range for a non-diabeticadult is 60-99 mg/dL. Two hours after meals, normal blood glucose levels should beless than 140 mg/dL.Please note new normal range. [id number] 12:43:00* Test Item Value Reference Range Interpretation Comme nts glubed (test code = glubed) 126 mg/dL 60-99 H performing lab: (test code = performing lab:) [facility]- X[facility] PELVIS 1/2 [id number] 07:10:00 [facility] Ortez PEDRO PABLO : 1955 Sex: M Patient Name: ABDULAZIZ MARTINEZ Unit No: [id number] EXAMS: CPT CODE: [id number] XR PELVIS 1/2 VIEWS 94767 INTRAOPERATIVE LEG LENGTH FILM COMMENT: COMPARISON: No prior exams available. In progress right hip replacement is noted. AP portable right hip COMMENT: The patient is status post joint replacement which is articulating normally. at 0710 Reported and signed by: Don Walter MD CC: Montez Nguyen MD Technologist: Pranav Dooley R.T. Transcribed D/ (0710) VictoriaL [facility] NAME: ABDULAZIZ MARTINEZ [address] [facility] PHYS: Montez Joaquin MD : 1955 AGE: 68 SEX: M [place] [address] LOC: Y.321 A PHONE #: [phone] EXAM DATE: 06/23/2023 STATUS: ADM IN FAX #: [phone] RAD #: D/C DT PAGE 1 Signed Report Patient Name: ABDULAZIZ MARTINEZ Unit No:[id number] EXAMS: CPT CODE: [id number] XR PELVIS 1/2 VIEWS 37291 (Continued) Orig Print D/T: S: 06/24/2023 (0713) [facility] NAME: ABDULAZIZ MARTINEZ [address] [facility] PHYS: Montez Joaquin MD : 1955 AGE: 68 SEX: M [place] [address] LOC: Y.321 APHONE #: [phone] EXAM DATE: 06/23/2023 STATUS: ADM IN FAX #: [phone] RAD #: D/C DT PAGE 2 Signed Report- XR PELVIS 1/2 [id number] 07:10:[facility] : 1955 Sex: M Patient Name: ABDULAZIZ MARTINEZ Unit No: [id number] EXAMS: CPT CODE: [id number] XR PELVIS 1/2 VIEWS 47019 INTRAOPERATIVE LEG LENGTH FILM COMMENT: COMPARISON: No prior exams available. In progress right hip replacement is noted. AP portable right hip COMMENT: The patient is status post joint replacement which is articulating normally. at 0710 Reported and signed by: Don Walter MD CC: Montez Nguyen MD Technologist: ASHLEY MURPHY ARRT Transcribed D/ (0710) VictoriaL [facility] NAME: ABDULAZIZ MARTINEZ [address] [facility] PHYS: Montez Joaquin MD : 1955 AGE: 68 SEX: Krystal [place], [place] [address] LOC: Y.321 A PHONE #: [phone] EXAM DATE: 06/23/2023 STATUS: ADM IN FAX #: [phone] RAD #: D/C DT PAGE 1 Signed Report Patient Name: ABDULAZIZ MARTINEZ Unit No: [id number] EXAMS: CPT CODE: [id number] XR PELVIS 1/2 VIEWS 86369 (Continued) Orig Print D/T: S: 06/24/2023 (0713) [facility] NAME: ABDULAZIZ MARTINEZ [address] [facility] PHYS: Montez Lee MD : 1955 AGE: 68 SEX: M [place], [place] [address] LOC: YFrancy A PHONE #: [phone] EXAM DATE: 06/23/2023 STATUS: ADM IN FAX #: [phone] RAD #: D/C DT PAGE 2 Signed ReportPROTHROMBIN [id number] 06:45:00* Test Item Value Reference Range Interpretation Comme nts PROTHROMBIN TIME PATIENT (test code = PTP) 15.6 secs 9.4-12.5 H INTERNATIONAL NORMAL RATIO (test code = INR) 1.38 <2.0 RECOMMENDED THER APEUTIC RANGE FOR ORAL ANTICOAGULANTTREATMENT: CONDITION INRProphylaxis of venous thrombosis in 2.0 - 3.0 high-risk medical or surgical patientsTreatment of venous thrombosis 2.0 - 3.0Prevention of embolism 2.0 - 3.0Prevention of recurrent embolism, or 3.0 - 4.5 patients with mechanical prosthetic intravascular valves IS PATIENT ON ANTICOAGULANTS ? YBASIC METABOLIC [id number] 06:41:00* Test Item Value Reference Range Interpretation Comme nts SODIUM (test code = NA) 138 mmol/L 136-145 N POTASSIUM (test code = K) 4.4 mmol/L 3.5-5.1 N CHLORIDE (test code = CL) 102.0 mmol/L 98-107 N CARBON DIOXIDE (test code = CO2) 27.5 mmol/L 21-32 N GLUCOSE (test code = GLU) 131 mg/dL 74-106 H BLOOD UREA NITROGEN (test code = BUN) 20 mg/dL 7-18 H GLOMERULAR FILTRATION RATE (test code = GFR) 86.1 >60 The Glomerular Filtration Rate is a calculated parameterbased on serum Creatinine, patient age and sex. GFR valuesless than 60 mL/min/1.73 square meters are indicative ofChronic Kidney Disease. Values less than 15 mL/min/1.73square meters indicate Kidney failure. The calculation forGFR is based on the CKD-EPI (2020) calculation. This formulais race indifferent and is the recommended formula for GFRby the National Kidney Foundation for Adults.The GFR will not calculate if the sex is unknown or if thepatient's age is <18 years. CREATININE (test code = CREAT) 0.97 mg/dL 0.70-1.30 N CALCIUM (test code = CA) 8.2 mg/dL 8.5-10.1 L SPECIMEN COMMENT: POD #[id number] 05:47:00* Test Item Value Reference Range Interpretation Comme nts HEMOGLOBIN (test code = HGB) 9.7 g/dL 12-16 L HEMATOCRIT (test code = HCT) 31.6 % 37-47 L SPECIMEN COMMENT: POD #[id number] 05:11:00* Test Item Value Reference Range Interpretation Comme nts GLUBED (test code = GLUBED) 127 mg/dL 60-99 H The [facility] glucose range for a non-diabeticadult is 60-99 mg/dL. Two hours after meals, normal blood glucose levels should beless than 140 mg/dL.Please note new normal range. mdrafy1559-54-62 04:59:00* Test Item Value Reference Range Interpretation Comme nts glubed (test code = glubed) 127 mg/dL 60-99 H performing lab: (test code = performing lab:) [facility] 2023-06-24 03:45:00* Test Item Value Reference Range Interpretation Comme nts hemoglobin (test code = hemoglobin) 9.7 g/dL 12-16 L hematocrit (test code = hematocrit) 31.6 % 37-47 L performing lab: (test code = performing lab:) [facility] nlrcp8431-46-72 03:45:00* Test Item Value Reference Range Interpretation Comme nts sodium (test code = sodium) 138 mmol/L 136-145 potassium (test code = potassium) 4.4 mmol/L 3.5-5.1 chloride (test code = chloride) 102.0 mmol/L 98-107 carbon dioxide (test code = carbon dioxide) 27.5 mmol/L 21-32 glucose (test code = glucose) 131 mg/dL 74-106 H blood urea nitrogen (test co de = blood urea nitrogen) 20 mg/dL 7-18 H glomerular filtration rate ( test code = glomerular filtration rate) 86.1 >60 creatinine (test code = creatinine) 0.97 mg/dL 0.70-1.30 calcium (test code = calcium) 8.2 mg/dL 8.5-10.1 L performing lab: (test code = performing lab:) [facility] 20:31:00* Test Item Value Reference Range Interpretation Comme nts GLUBED (test code = GLUBED) 122 mg/dL 60-99 H The normal fasti ng blood glucose range for a non-diabeticadult is 60-99 mg/dL. Two hours after meals, normal blood glucose levels should beless than 140 mg/dL.Please note new normal range. uhzqzi4487-95-82 20:19:00* Test Item Value Reference Range Interpretation Comme nts glubed (test code = glubed) 122 mg/dL 60-99 H performing lab: (test code = performing lab:) [facility] 17:05:00* Test Item Value Reference Range Interpretation Comme nts GLUBED (test code = GLUBED) 167 mg/dL 60-99 H The normal fasti ng blood glucose range for a non-diabeticadult is 60-99 mg/dL. Two hours after meals, normal blood glucose levels should beless than 140 mg/dL.Please note new normal range. yrrxnz6937-07-74 16:52:00* Test Item Value Reference Range Interpretation Comme nts glubed (test code = glubed) 167 mg/dL 60-99 H performing lab: (test code = performing lab:) [facility] 13:06:00* Test Item Value Reference Range Interpretation Comme nts GLUBED (test code = GLUBED) 119 mg/dL 60-99 H The normal fasti ng blood glucose range for a non-diabeticadult is 60-99 mg/dL. Two hours after meals, normal blood glucose levels should beless than 140 mg/dL.Please note new normal range. akupjf2409-29-36 12:54:00* Test Item Value Reference Range Interpretation Comme nts glubed (test code = glubed) 119 mg/dL 60-99 H performing lab: (test code = performing lab:) [facility] 10:00:00* Test Item Value Reference Range Interpretation Comme nts GLUBED (test code = GLUBED) 125 mg/dL 60-99 H The normal fasti ng blood glucose range for a non-diabeticadult is 60-99 mg/dL. Two hours after meals, normal blood glucose levels should beless than 140 mg/dL.Please note new normal range. 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 There is sclerosis with full-thickness cartilage loss posteriorly and osteophyte. There is a chronic posterior rib fracture of the acetabulum without healing. 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 Diffuse vascular calcification is noted. COMMENT: COMPARISON: No prior exams available. Scanswere performed with thin sections and reconstructions were obtained. CT radiation dose optimizationis achieved for this examination by the use of a CT protocol in accordance with ACR practice standards and adherence to delinquent tax collector assistant's recommendations. Degenerative changes are as described. at 0932 Reported and signed by: Don Walter MD CC: Montez Nguyen MD Technologist: PRIYA MINA MRI CTDI: DLP: Trnscrpt: 06/17/2023 (0932) t.SDR.JCL [facility] NAME: ABDULAZIZ MARTINEZ [address] [facility] PHYS: Montez Joaquin MD : 1955 AGE: 68 SEX: M [place], [place] [address] LOC: GeeRAD PHONE #: [phone] EXAM DATE: 06/16/2023 STATUS: DEP CLI FAX #: [phone] RAD #: D/C DT PAGE 1 Signed Report Patient Name: ABDULAZIZ MARTINEZ Unit No: [id number] EXAMS: CPT CODE: [id number] CT LOWER EXTRM W/[place] [address] (Continued) Orig Print D/T: S: 06/17/2023 (0935) [facility]: ABDULAZIZ MARTINEZ [address] [facility] PHYS: Montez Joaquin MD : 1955 AGE: 68 SEX: M [place] [address] LOC: GeeRAD PHONE #: [phone] EXAM DATE: 06/16/2023 STATUS: DEP CLI FAX #: [phone] RAD #: D/C DT PAGE 2 Signed ReportLACTIC [id number] 16:01:00* Test Item Value Reference Range Interpretation Comme nts LACTIC ACID (test code = LACT) 1.4 MMOL/L 0.7-2.1 N PROTHROMBIN [id number] 13:19:00* Test Item Value Reference Range Interpretation Comme nts PROTHROMBIN TIME PATIENT (test code = PTP) 38.6 SECONDS 9.5-12.7 HH INTERNATIONAL NORMAL RATIO (test code = INR) 3.4 0.86-1.14 H The INR is to be used only for monitoring oral anticoagulanttherap y. INDICATION INR VALUE -------1. Prophylaxis, deep venous thrombosis, including high risk surgery. 2.0 - 3.0 2. Prophylaxis, deep venous thrombosis, hip surgery, treatment for deep venous thrombosis or pulmonary prevention of systemic embolism in patients with valvular heart disease, atrial fibrillation, tissue heart valve, or acute myocardial infarction. 2.0 - 3.0 3. Mechanical prosthesis heart valves, recurrent systemic embolism. 3.0 - 4.5 PTT [id number] 13:19:00* Test Item Value Reference Range Interpretation Comme nts PTT ACTIVATED (test code = APTT) 55.4 SECONDS 25.1-36.5 H BASIC METABOLIC [id number] 13:03:00* Test Item Value Reference Range Interpretation Comme nts SODIUM (test code = NA) 140 MMOL/L 137-145 N POTASSIUM (test code = K) 4.0 MMOL/L 3.5-5.1 N CHLORIDE (test code = CL) 102 MMOL/L 98-107 N CARBON DIOXIDE (test code = CO2) 30 MMOL/L 22-30 N GLUCOSE (test code = GLU) 131 MG/DL 74-106 H BLOOD UREA NITROGEN (test code = BUN) 15 MG/DL 9-20 N GLOMERULAR FILTRATION RATE (test code = GFR) > 60 Reporting units: ml/min/1.73 m2 (Modified MDRD Formula)Reference Range: > or = 60 ml/min/1.73 m2 CREATININE (test code = CREAT) 0.90 MG/DL 0.66-1.25 N CALCIUM (test code = CA) 8.9 MG/DL 8.4-10.2 N [id number] 13:03:00* Test Item Value Reference Range Interpretation Comme nts MAGNESIUM (test code = MAG) 2.0 MG/DL 1.6-2.3 N CBC W/AUTO [id number] 12:30:00* Test Item Value Reference Range Interpretation Comme nts WHITE BLOOD CELL (test code = WBC) 11.6 K/MM3 3.8-9.8 H RED BLOOD CELL (test code = RBC) 4.52 M/MM3 3.95-5.67 N HEMOGLOBIN (test code = HGB) 13.4 G/DL 12.4-16.7 N HEMATOCRIT (test code = HCT) 42.2 % 35.9-49.5 N MEAN CELL VOLUME (test code = MCV) 93 fL 81.7-96.1 N MEAN CELL HGB (test code = MCH) 29.6 pg 27.6-33.2 N MEAN CELL HGB CONCETRATION (test code = MCHC) 31.8 % 32.9-35.5 L RED CELL DISTRIBUTION WIDTH (test code = RDW) 13.2 % 12.1-15.2 N PLATELET COUNT (test code = PLT) 300 K/MM3 129-368 N MEAN PLATELET VOLUME (test c ode = MPV) 10.7 fl 7.4-10.4 H NEUTROPHIL % (test code = NT%) 73.9 % 43-75 N IMMATURE GRANULOCYTE % (test code = IG%) 0.5 % 0.0-2.0 N LYMPHOCYTE % (test code = LY%) 13.1 % 14-44 L MONOCYTE % (test code = MO%) 6.1 % 4-13 N EOSINOPHIL % (test code = EO%) 5.7 % 0-6 N BASOPHIL % (test code = BA%) 0.7 % 0-2 N NUCLEATED RBC % (test code = NRBC%) 0.0 % 0-1.0 N NEUTROPHIL # (test code = NT#) 8.54 K/mm3 2.0-7.6 H IMMATURE GRANULOCYTE # (test code = IG#) 0.06 x10 3/uL 0-0.03 H LYMPHOCYTE # (test code = LY#) 1.52 K/mm3 1.0-3.8 N MONOCYTE # (test code = MO#) 0.70 K/mm3 0.1-0.8 N EOSINOPHIL # (test code = EO#) 0.66 K/mm3 0.0-0.2 H BASOPHIL # (test code = BA#) 0.08 K/mm3 0.0-0.2 N NUCLEATED RBC # (test code = NRBC#) 0.00 K/mm3 0.0-0.1 N COVID 19 Asymptomatic IH [id number] 11:25:00* Test Item Value Reference Range Interpretation Comme nts COVID 19 Asymptomatic IH AG (test code = COVNONPUIAG) NEGATIVE Negative "Negative result s from patients with symptom onset beyondfive days, should be treated as presumptive, andconfirmation with a molecular assay, if necessary forpatient management may be performed. Negative results do notrule out COVID-19 and should not be used as the sole basisfor treatment or patient management decisions, includinginfection control decisions. Negative results should beconsidered in the context of a patients recent exposures,history, and the presence of clinical signs and symptomsconsistent with COVID-19.This test detects both viable andnon-viable SARS-CoV and SARS CoV-2.Test performance dependson the amount of virus (antigen) in the sample." Spec Comments: PRE CATHLAB PROCEDUREComments to Phleb: PLS RUN TEST ASAPGLUBED 2021-02-01 08:45:00* Test Item Value Reference Range Interpretation Comme nts GLUBED (test code = GLUBED) 192 mg/dL 60-125 H [id number] 07:24:00* Test Item Value Reference Range Interpretation Comme nts GLUBED (test code = GLUBED) 195 mg/dL 60-125 H XR KNEE 3 VW [id number] 21:50:23Mild tricompartment DJD. RL: [id number] END OF REPORT Ordering Physician: RADHA GARIBAY Clinical Indication: knee pain Additional Clinical Information: Technical Quality: Good Comparison: None Technique: 3 view right knee Findings: There is moderate jointThe patellofemoral joints. Moderate narrowing of the medial and lateralfemorotibial joints. There is no meniscal calcification. [facility], Radiant Results Inft User - 01/21/2021 4:51 PM CDT Ordering Physician: RADHA GARIBAYClinical Indication: knee pain Additional Clinical Information:Technical Quality: GoodComparison: NoneTechnique: 3 view right kneeFindings: There is moderate jointThe patellofemoral joints. Moderate narrowing of the medial and lateralfemorotibial joints. There is no meniscal calcification.IMPRESSIONMild tricompartment DJD.RL: 5611END OF REPORT [facility] Notes Date/Time Note Provider Source 2023-06-27 08:55:00 [id number] LSvqNWKBN+XkqVGV75ekkh/98FAgQ G9iMYj77YgTijrHuoNaASwIVq6g5010-18-51X75:55:00 [facility] ([facility])Clinical NoteREPORT#:[id number] REPORT STATUS: SignedREPORT INITIALIZATION DATE:06/27/23 TIME: 854 PATIENT: ABDULAZIZ MARTINEZ UNIT #: [id number]#: [id number] ROOM/BED: [facility]-ADOB: [birth year] AGE: 68 SEX: M ATTEND: Montez Nguyen MDADM AUTHOR: Bony Araya MDREPT SERVICE DT/TIME: 06/27/23854* ALL edits or amendments must be made on the electronic/computer document * Clinical NoteNote:[facility] Bony Funez M.D. (cell text [phone]) Assessment/Plan1.) Anemia of acute blood loss- .Hgb 9.1 (from 8.6), asymptomatic. 2.) POD#4 Right FANY- .acute multi-modal pain control and followup. 3.) Hypertension Metallic Aortic Valve Replacement- .follow BP and hold Rxs if SBP<120. Now on Lovenox bridge (100mg Sq w9cl9sv) along with his usual warfarin 10mg qday. 4.) OsteoArthritis Hyperlipidemia RLS JEANIE- .continue on Rx. CPAP* OK for DISCHARGE per Internal Medicine. Prior Events/Overnight: Uneventful.Chief Complaint: No significant complaints. Objective Vital Signs: Date Time Temp Pulse Resp B/P B/P Pulse O2 O2 Flow FiO2 Mean Ox Delivery Rate 06/27 0701 96.3 73 16 91/56 67.4 99 06/27 0442 96.3 60 19 147/75 99.1 98 CPAP 06/27 0236 50 98 2 28 06/27 0236 98 CPAP 2 28 06/26 2230 56 97 2 28 06/260 97 CPAP 2 28 06/264 97.3 60 19 129/72 90.8 97 CPAP 06/26 1929 97.7 60 18 137/64 88.5 97 Room air 06/26 1436 97.7 62 14 134/71 91.8 97 Room air 06/26 1230 96.8 58 14 164/68 100.4 99 Room air Gen: Alert, oriented, in mild discomfort Neck: No Masses, No Thyromegaly-CV: Regular Rate Rhythm / Edema- no significant Resp: Clear To Ascultation / Normal Respiratory EffortABD: NonTender / NonDistended MS/Skin: No sign of compartment syndrome / +ankle DF/PFOther: thigh soft, dressing clean Labs/X-ray: Laboratory Tests: 06/27 06/27 06/26 06/26 06/26 0528 0454 2040 1654 1146 Chemistry Sodium (136 - 145 mmol/L) 145 Potassium (3.5 - 5.1 mmol/L) 4.8 Chloride (98 - 107 mmol/L) 106.0 Carbon Dioxide (21 - 32 mmol/L) 30.0 BUN (7 - 18 mg/dL) 9 Creatinine (0.70 - 1.30 mg/dL) 0.69 L Glomerular Filtr Rate (>60) 102.1 Glucose (74 - 106 mg/dL) 109 H POC Glucose (60 - 99 mg/dL) 111 H 136 H 121 H 126 H Calcium (8.5 - 10.1 mg/dL) 8.5 Magnesium (1.8 - 2.4 mg/dL) 1.9 Hematology Hgb (12 - 16 g/dL) 9.1 L Hct (37 - 47 %) 30.2 L Bony Funez M.D. at [address] [place] [address] #:[id number] OF REPORT CLClinical qicj2427-21-27C37:55:00Y.[id number] able for patient fsfsCBXIGFYQHRQZCS7086-61-44H56:11:49 [facility]23[facility] 09:52:00 [id number] K9K9hz5mZFsI3yqabQdDnIlslP5M8 iniGU8V14AW25XMA7whaZQnPUSV5925-10-48Z67:52:00 [facility] ([facility])Clinical NoteREPORT#:[id number] REPORT STATUS: SignedREPORT INITIALIZATION DATE:06/26/23 TIME: 951 PATIENT: ABDULAZIZ MARTINEZ UNIT #: [id number]#: [id number] ROOM/BED: Y.321-ADOB: [birth year] AGE: 68 SEX: M ATTEND: PatrickMontez Christie MDADM AUTHOR: Bony Araya MDREPT SERVICE DT/TIME: 06/26/2352* ALL edits or amendments must be made on the electronic/computer document * Clinical NoteNote:[facility] Bony Funez M.D. (cell text [phone]) Assessment/Plan1.) Anemia of acute blood loss- .Hgb 8.6 (from 9.0), asymptomatic. INR 1.37 (from 1.42)2.) POD#3 Right FANY- .acute multi-modal pain control and followup. 3.) Hypertension Metallic Aortic Valve Replacement- .follow BP and hold Rxs if SBP<120. Now on Lovenox bridge (100mg Sq d1js5si) along with his usual warfarin 10mg qday. 4.) OsteoArthritis Hyperlipidemia RLS JEANIE- .continue on Rx. CPAP* OK for DISCHARGE per Internal Medicine. Prior Events/Overnight: Uneventful.Chief Complaint: No significant complaints. ObjectiveVital Signs: Date Time Temp Pulse Resp B/P B/P Pulse O2 O2 Flow FiO2 Mean Ox Delivery Rate 06/26 0713 97.3 56 14 118/70 85.6 96 Room air 06/26 0254 57 99 06/26 0254 99 CPAP 5 06/26 0248 96.1 80 16 120/77 91.1 96 06/25 2307 97.3 64 18 163/91 115.3 97 06/25 2114 93 Room air 0 21 06/25 1912 97.3 69 18 129/70 89.7 95 06/25 1627 97.3 64 18 114/67 82.9 95 Room air Gen: Alert, oriented, in mild discomfort Neck: No Masses, No Thyromegaly-CV: Regular Rate Rhythm / Edema- no significant Resp: Clear To Ascultation / Normal Respiratory EffortABD: NonTender / NonDistended MS/Skin: No sign of compartment syndrome / +ankle DF/PFOther: Labs/X-ray: Laboratory Tests: 06/26 06/26 06/25 06/25 06/25 0445 0315 1945 1630 1127 Chemistry Sodium (136 - 145 mmol/L) 140 Potassium (3.5 - 5.1 mmol/L) 4.3 Chloride (98 - 107 mmol/L) 106.0 Carbon Dioxide (21 - 32 mmol/L) 28.5 BUN (7 - 18 mg/dL) 14 Creatinine (0.70 - 1.30 mg/dL) 0.81 Glomerular Filtr Rate (>60) 97.2 Glucose (74 - 106 mg/dL) 124 H POC Glucose (60 - 99 mg/dL) 120 H 218 H 145 H 147 H Calcium (8.5 - 10.1 mg/dL) 8.0 L Coagulation PT (9.4 - 12.5 secs) 15.5 H INR (<2.0) 1.37 Hematology WBC (5.5 - 11.0 K/mm3) 9.0 RBC (4.2 - 5.4 M/mm3) 3.20 L Hgb (12 - 16 g/dL) 8.6 L Hct (37 - 47 %) 28.0 L MCV (80 - 98 fL) 88 MCH (27 - 34 pg) 26.9 L MCHC (30.8 - 34.1 g/dL) 30.7 L RDW (11 - 16 %) 14.4 Plt Count (130 - 400 K/mm3) 309 MPV (8.9 - 12.1 fL) 10.8 Neut % (Auto) (45 - 70 %) 76.1 H Lymph % (Auto) (20 - 40 %) 10.9 L Guthrie % (Auto) (3 - 10 %) 8.5 Eos % (Auto) (1 - 5 %) 3.5 Baso % (Auto) (0.0 - 1.1 %) 0.6 Neut # (Auto) (2.00 - 7.50 K/mm3) 6.83 Lymph # (Auto) (1.50 - 4.00 K/mm3) 0.98 L Guthrie # (Auto) (0.2 - 0.8 K/mm3) 0.76 Eos # (Auto) (0.04 - 0.4 K/mm3) 0.31 Baso # (Auto) (0.02 - 0.10 K/mm3) 0.05 Add Manual Diff (MANUAL DIFF) NO Nucleated RBC % (0 - 0 %) 0 Bony Funez M.D. at 1203 RPT #:[id number] OF REPORT CLClinical gelk3685-00-51Q08:52:00Y.[id number] able for patient zejaGECCAQTLDRGTIC3326-17-56L15:04:04 [facility] 2023-06-25 18:40:00 [id number]+[id number] 31rb42zUjxdTY/qOiPS7pkADng31c EY9/1fKM/TY8JaxuCSbdtDXncMM9191-52-35X18:40:00 [facility])Clinical NoteREPORT#:[id number] REPORT STATUS: SignedREPORT INITIALIZATION DATE:06/25/23 TIME: 1839 PATIENT: ABDULAZIZ MARTINEZ UNIT #: [id number]#: [id number] [facility] [birth year] [facility]: 68 SEX: M ATTEND: Montez Nguyen MDADM AUTHOR: Montez Nguyen MDREPT SERVICE DT/TIME: 06/25/231839* ALL edits or amendments must be made on the electronic/computer document * Clinical NoteNote:continued poor progress with PTincision benignNV intacthopeful d/c in AM at 1841 RPT #:[id number] OF REPORT CLClinical htpj3323-75-23T26:40:00Y.KFWL01505648-1351LLIvgxt able for patient penvZXSQGQZFUSCBHF6263-56-49U31:42:00 [facility] 2023-06-25 09:54:00 [id number] 6n4RbGtrB2Gel+8sp5M07hHOxxI9O 5m/L2qu4TtGP+hxmbS6wRvFun5k6661-02-61T98:54:00 [facility])Clinical NoteREPORT#:[id number] REPORT STATUS: SignedREPORT INITIALIZATION DATE:06/25/23 TIME: 953 PATIENT: ABDULAZIZ MARTINEZ UNIT #: [id number]#: [id number] ROOM/BED: Y.321-ADOB: [birth year] AGE: 68 SEX: M ATTEND: Montez Nguyen MDA AUTHOR: Bony Araya MDREPT SERVICE DT/TIME: 06/25/23 0954* ALL edits or amendments must be made on the electronic/computer document * Clinical NoteNote:[facility] Bony Funez M.D. (cell text [phone]) Assessment/Plan1.) Anemia of acute blood loss- .Hgb 9.0 (from 9.7), asymptomatic. INR 1.42 (from 1.38)2.) POD#2 Right FANY- .acute multi-modal pain control and followup. Discussed with Dr. Nguyen. Will give a total of 80mg of lovenox this AM. Will arrange lovenox bridge 100mg sq q12 for the next 11 doses starting tonight (9am 9pm). 3.) Hypertension Metallic Aortic Valve Replacement- .follow BP and hold Rxs if SBP<120. 4.) OsteoArthritis Hyperlipidemia RLS JEANIE- .continue on Rx. CPAP* OK for DISCHARGE per Internal Medicine. Prior Events/Overnight: Uneventful.Chief Complaint: No significant complaints. ObjectiveVital Signs: Date Time Temp Pulse Resp B/P B/P Pulse O2 O2 Flow FiO2 Mean Ox Delivery Rate 06/25 0653 98.1 61 17 106/65 78.5 94 Room air 06/25 0312 62 96 2 28 06/25 0312 96 CPAP 2 28 06/25 0259 98.2 66 16 124/71 88.2 96 06/24 2229 97.7 69 16 116/69 84.4 96 06/24 2200 71 95 2 28 06/24 2155 97 Nasal 2 28 cannula 06/24 1902 97.3 71 18 121/67 85.3 95 06/24 1554 99.1 67 18 105/65 78.2 93 Room air 06/24 1108 98.6 66 18 110/66 80.5 99 Nasal cannula Gen: Alert, oriented, in mild discomfort Neck: No Masses, No Thyromegaly-CV: Regular Rate Rhythm / Edema- no significant Resp: Clear To Ascultation / Normal Respiratory EffortABD: NonTender / NonDistended MS/Skin: No sign of compartment syndrome / +ankle DF/PFOther: Labs/X-ray: Laboratory Tests: 06/25 06/25 06/24 06/24 06/24 0451 0315 2056 1627 1243 Chemistry Sodium (136 - 145 mmol/L) 140 Potassium (3.5 - 5.1 mmol/L) 4.5 Chloride (98 - 107 mmol/L) 104.0 Carbon Dioxide (21 - 32 mmol/L) 31.0 BUN (7 - 18 mg/dL) 19 H Creatinine (0.70 - 1.30 mg/dL) 0.98 Glomerular Filtr Rate (>60) 85.0 Glucose (74 - 106 mg/dL) 114 H POC Glucose (60 - 99 mg/dL) 115 H 149 H 125 H 126 H Calcium (8.5 - 10.1 mg/dL) 8.3 L Coagulation PT (9.4 - 12.5 secs) 16.1 H INR (<2.0) 1.42 Hematology WBC (5.5 - 11.0 K/mm3) 7.8 RBC (4.2 - 5.4 M/mm3) 3.34 L Hgb (12 - 16 g/dL) 9.0 L Hct (37 - 47 %) 29.5 L MCV (80 - 98 fL) 88 MCH (27 - 34 pg) 26.9 L MCHC (30.8 - 34.1 g/dL) 30.5 L RDW (11 - 16 %) 14.4 Plt Count (130 - 400 K/mm3) 327 MPV (8.9 - 12.1 fL) 10.8 Neut % (Auto) (45 - 70 %) 70.1 H Lymph % (Auto) (20 - 40 %) 15.8 L Guthrie % (Auto) (3 - 10 %) 9.3 Eos % (Auto) (1 - 5 %) 3.3 Baso % (Auto) (0.0 - 1.1 %) 0.9 Neut # (Auto) (2.00 - 7.50 K/mm3) 5.49 Lymph # (Auto) (1.50 - 4.00 K/mm3) 1.24 L Guthrie # (Auto) (0.2 - 0.8 K/mm3) 0.73 Eos # (Auto) (0.04 - 0.4 K/mm3) 0.26 Baso # (Auto) (0.02 - 0.10 K/mm3) 0.07 Add Manual Diff (MANUAL DIFF) NO Nucleated RBC % (0 - 0 %) 0 Bony Funez M.D. at 1052 RPT #:[id number] OF REPORT CLClinical iboq4170-46-27K88:54:00Y.TAWA63242647-4473HUPctqc able for patient rxzfEELTEKDERJSKDM8637-39-05H14:52:41 [facility] 2023-06-24 09:48:00 [id number] 0lOvOOkmjW9V2FuDg+8MlpQsW5Qu7 Hn+uaCCeDcUPsl1pm0O8YdA+h6k1886-55-15W99:48:00 [facility] ([facility])Clinical NoteREPORT#:[id number] REPORT STATUS: SignedREPORT INITIALIZATION DATE:06/24/23 TIME: 947 PATIENT: ABDULAZIZ MARTINEZ UNIT #: [id number]#: [id number] ROOM/BED: [facility]-ADOB: [birth year] AGE: 68 SEX: M ATTEND: Montez Nguyen [facility] AUTHOR: Bony Araya MDREPT SERVICE DT/TIME: 06/24/23 0948* ALL edits or amendments must be made on the electronic/computer document * Clinical NoteNote:[facility] Bony Funez M.D. (cell text [phone]) Assessment/Plan1.) Anemia of acute blood loss- .Hgb 9.7, asymptomatic. INR 1.382.) S/p Right FANY- .acute multi-modal pain control and followup. Anticoagulation as per Dr. Nguyen. He has not cleared with PT this AM.3.) Hypertension Metallic Aortic Valve Replacement- .follow BP and hold Rxs if SBP<120. 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 CPAP I called Dr. Valenzuela's office and was given authorization to place patient on a lovenox bridge. He will have his INR level checked on Thursday. Prior Events/Overnight: Uneventful.Chief Complaint: No significant complaints. ObjectiveVital Signs: Date Time Temp Pulse Resp B/P B/P Pulse O2 O2 Flow FiO2 Mean Ox Delivery Rate 06/24 0715 97.2 57 17 117/56 76.0 99 Nasal cannula 06/24 0337 97.5 67 14 97/58 70.9 100 Nasal cannula 06/23 2216 97.2 61 16 110/65 80.2 100 Nasal cannula 06/23 2144 99 Nasal 3 32 cannula 06/23 1947 96.8 72 16 125/73 90.6 100 Nasal cannula 06/23 1605 98 Nasal 3 32 cannula 06/23 1510 95.4 65 17 115/67 83.0 98 Nasal cannula 06/23 1403 Nasal 3 cannula 06/23 1345 67 16 110/61 98 Nasal 3 cannula 06/23 1330 71 18 110/63 97 Nasal 3 cannula 06/23 1315 72 18 111/56 96 Simple 8 mask 06/23 1300 74 16 110/57 100 Simple 8 mask 06/23 1259 Simple 8 mask 06/23 1250 98.6 69 16 105/63 99 Simple 8 mask Gen: Alert, oriented, in mild discomfort Neck: No Masses, No Thyromegaly-CV: Regular Rate Rhythm / Edema- no significant Resp: Clear To Ascultation / Normal Respiratory EffortABD: NonTender / NonDistended MS/Skin: No sign of compartment syndrome / +ankle DF/PFOther: Labs/X-ray: Laboratory Tests: 06/24 06/24 06/23 06/23 06/23 0459 0345 2019 1652 1254 Chemistry Sodium (136 - 145 mmol/L) 138 Potassium (3.5 - 5.1 mmol/L) 4.4 Chloride (98 - 107 mmol/L) 102.0 Carbon Dioxide (21 - 32 mmol/L) 27.5 BUN (7 - 18 mg/dL) 20 H Creatinine (0.70 - 1.30 mg/dL) 0.97 Glomerular Filtr Rate (>60) 86.1 Glucose (74 - 106 mg/dL) 131 H POC Glucose (60 - 99 mg/dL) 127 H 122 H 167 H 119 H Calcium (8.5 - 10.1 mg/dL) 8.2 L Coagulation PT (9.4 - 12.5 secs) 15.6 H INR (<2.0) 1.38 Hematology Hgb (12 - 16 g/dL) 9.7 L Hct (37 - 47 %) 31.6 L Bony Funez M.D. at 1448 RPT #:[id number] OF REPORT CLClinical btay3088-84-67V86:48:00Y.[id number] able for patient zronXAURYDUGYFRJJN6985-14-70U64:49:24 [facility] 2023-06-24 08:10:00 [id number] QJ9zA6r9s1Vs5euG0H0IU7QwM3dhR 4QO9dZnpDYZcPPKx0THFFqik/bT0366-93-49Y32:10:00 [facility] ([facility])Discharge SummaryREPORT#:[id number] REPORT STATUS: SignedREPORT INITIALIZATION DATE:06/24/23 TIME: 809 PATIENT: ABDULAZIZ MARTINEZ UNIT #: [id number]#: [id number] [facility] [birth year] [facility]GE[facility] 68 SEX: M ATTEND: Montez Nguyen [facility] AUTHOR: Valeria Morrison PAREPT SERVICE DT/TIME: 06/24/23 0810* ALL edits or amendments must be made on the electronic/computer document * General InformationDate of admission:Observation Start Date: 06/23/23Date of admission: 06/23/23 Discharge date: 06/24/23Admission diagnosis:Right hip osteoarthritisDischarge diagnosis:sameHospital course:The patient underwent the procedure without incident. Findings were significantfor degenerative disease of the hip. The patient was hemodynamically and medically monitored during the post op period. Anticoagulation was instituted for post op DVT prophylaxis. The patient was progressively able to tolerate PO pain medications and the appropriate diet. PT was instituted, with a progressive ability to ambulate and performed exercises. The patient was eventually deemed stable and safe for discharge. Despite factors which projected a longer hospital stay, the patient fulfilled criteria for earlier than expected discharge, including control of pain, early mobilization with PT and stable hemodynamic status. At discharge the patient was comfortable with a controlled pain level. There were no chest or abdominal symptoms present. Discharge physical exam demonstrated stable vitals and no acute distress. The patient had an intact dressing with no significant drainage and no calf tenderness. There were no neurologic or vascular deficits or changes from the preop states. We discussed that postoperative management to optimize health is in the best interest of not only the patient s surgical recovery but their overall health. Weight optimization through appropriate nutrition and exercise was encouraged. Optimum blood sugar and diabetes management through nutrition optimization and appropriate medical management was encouraged to improve the patient s long termhealth.Consultants: internal medicinePt. condition on discharge: stableAllergies:Allergies:No Known Allergies (Coded, 02/01/21) Med Rec Med RecDischarge meds:Stop taking the following medications:METHOCARBAMOL (ROBAXIN) 750 MG TAB 750 MILLIGRAM ORAL THREE TIMES A DAY. Continue taking these medications:WARFARIN (COUMADIN) 1 MG TAB 10 MILLIGRAM ORAL DAILY. ALLOPURINOL (ZYLOPRIM) 100 MG TAB 200 MILLIGRAM ORAL DAILY. CARVEDILOL (COREG) 12.5 MG TAB 12.5 MILLIGRAM ORAL TWICE DAILY. INSULIN DEGLUDEC (TRESIBA FLEXTOUCH U-100 (3mL)) 100 UNIT/ML (3 ML) PEN.INJCTR 20 UNITS SUBCUTANEOUS DAILY. LORATADINE (CLARITIN) 10 MG TAB 10 MILLIGRAM ORAL DAILY. PANTOPRAZOLE DR (PROTONIX) 40 MG TAB.DR 40 MILLIGRAM ORAL DAILY. ROSUVASTATIN (CRESTOR) 5 MG TAB 5 MILLIGRAM ORAL DAILY. LISINOPRIL (ZESTRIL) 20 MG TAB 20 MILLIGRAM ORAL DAILY. MONTELUKAST (SINGULAIR) 10 MG TAB 10 MILLIGRAM ORAL 1700. [LEROY-PLEX] 1 TABLET ORAL DAILY. [MAGNESIUM GLYCINATE] 420 MG 1 TABLET ORAL 1700. DAPAGLIFLOZIN/metFORMIN 10/1,000 MG (XIGDUO XR 10/1,000 MG) 10 MG-1,000 MG TAB.ER.24H 1 TABLET ORAL DAILY. TIRZEPATIDE (MOUNJARO PEN (2mL)) 5 MG/0.5 ML PEN.INJCTR 5 MILLIGRAM SUBCUTANEOUS EVERY 7 DAYS. Comments: THURSDAY LEVOTHYROXINE (SYNTHROID) 25 MCG TAB 25 MICROGRAM ORAL DAILY. FUROSEMIDE (LASIX) 20 MG TAB 20 MILLIGRAM ORAL DAILY. [ENERGY BOOSTER] 2 CAPSULES ORAL DAILY. UBIDECARENONE (CO Q-10) 100 MG CAP 100 MILLIGRAM ORAL DAILY. [COSAMINE ASU] 1 CAPSULE ORAL DAILY. GABAPENTIN (NEURONTIN) 300 MG CAP 300 MILLIGRAM ORAL THREE TIMES A DAY. Comments: 600 MG BEDTIME traMADol (ULTRAM) 50 MG TAB 1 TABLET ORAL DAILY. as needed for PAIN traZODone (DESYREL) 100 MG TAB 100 MILLIGRAM ORAL BEDTIME. as needed for TO SLEEP [MITIGARE] 0.6 MILLIGRAM ORAL DAILY. as needed for TOE PAIN / GOUT FLARE UP Treatments ProceduresTreatments Procedures:Procedure: Right total hip arthroplastyLab:Chemistry last 24 hrs: 06/24 345 Chemistry Sodium (136 - 145 mmol/L) 138 Potassium (3.5 - 5.1 mmol/L) 4.4 Chloride (98 - 107 mmol/L) 102.0 BUN (7 - 18 mg/dL) 20 H Creatinine (0.70 - 1.30 mg/dL) 0.97 Glucose (74 - 106 mg/dL) 131 H Hematology last 24 hrs: 06/24 345 Hematology Hgb (12 - 16 g/dL) 9.7 L Hct (37 - 47 %) 31.6 L Coagulation last 24 hrs: 06/24 345 Coagulation PT (9.4 - 12.5 secs) 15.6 H INR (<2.0) 1.38 Discharge Instructions PCPPCP:PCP: Montez Nguyen MD )( Discharge to: Home/Self Care Discharge InstructionsAdditional Discharge Routines: Attending Follow-Up, Wound/Dressing Care)( Diet: Resume Home Diet/Feeds)( Weight monitoring: Not Required)( Activity: As Tolerated)( Wound/dressing care: Do not submerge incision, Leave dressing in place, OK toshower tomorrowPrescriptions: e-prescribeRx drug database reviewed: yes Follow-up AppointmentsAttending Physician: Attending Physician: Montez Nguyen MD Attending physician follow up timeframe: In 1-2 weeks at 0812 at 0558 [facility] #:[id number] OF REPORT DSDischarge frtefqx9024-47-83K34:10:00Y.[id number] ailable for patient rhxyJWNRBBQILXBXGW9716-53-72Z42:13:18 [facility] 2023-06-23 16:42:00 [id number] OZ26MGsSsh5PPZMijR3CxPQa0WWx9 Rda49CQKPPa7qlefn4+dtAX2U3z8348-13-43S95:42:00 [facility] ([facility])Clinical NoteREPORT#:[id number] REPORT STATUS: SignedREPORT INITIALIZATION DATE:06/23/23 TIME: 1641 PATIENT: ABDULAZIZ MARTINEZ UNIT #: [id number]#: [id number] ROOM[facility]BED: [facility]-ADOB: [birth year] AGE: 68 SEX: M ATTEND: Montez Nguyen [facility] AUTHOR: Bony Araya MDREPT SERVICE DT/TIME: 06/23/231641* ALL edits or amendments must be made on the electronic/computer document * Clinical NoteNote:[facility] Bony Funez MD(cell text [phone])Internal Medicine Consult at request of : Dr. Montez Nguyen Chief Complaint: right hip pain HPI: 68 yo M is now s/p Right Total Hip Arthroplasty(FANY) by Dr. Nguyen. Mr. Goldman relates years of progressive right hip pain (recently severe, 03/19), worsewith activity, and with restricted motion at times in quality. He has failed conservative management.Comorbidities: see below. PmHx: . Osteoarthritis, hypertension, hypercholesteremia, gout, type 2 diabetes mellitus, restless leg syndrome(RLS), vertigo, CHF, pulmonary embolism, sleep apnea- uses CPAP, obesity BMI 36.3 EF- 65%, ALLERGY: Allergies:No Known Allergies (Coded, 02/01/21) Home Medications: Home Medications:WARFARIN (COUMADIN) 10 MG PO DAILY ALLOPURINOL (ZYLOPRIM) 200 MG PO DAILY CARVEDILOL (COREG) 12.5 MG PO BID INSULIN DEGLUDEC (TRESIBA FLEXTOUCH U-100 (3mL)) 20 UNITS SUBQ DAILY MONTELUKAST (SINGULAIR) 10 MG PO 1700 [LEROY-PLEX] 1 TAB PO DAILY [MAGNESIUM GLYCINATE] 1 TAB PO 1700 DAPAGLIFLOZIN/metFORMIN 10/1,000 MG (XIGDUO XR 10/1,000 MG) 1 TAB PO DAILY TIRZEPATIDE (MOUNJARO PEN (2mL)) 5 MG SUBQ Q7D LEVOTHYROXINE (SYNTHROID) 25 MCG PO DAILY FUROSEMIDE (LASIX) 20 MG PO DAILY [ENERGY BOOSTER] 2 CAPS PO DAILY UBIDECARENONE (CO Q-10) 100 MG PO DAILY [COSAMINE ASU] 1 CAP PO DAILY METHOCARBAMOL (ROBAXIN) 750 MG PO TID GABAPENTIN (NEURONTIN) 300 MG PO TID traMADol (ULTRAM) 1 TAB PO DAILY PRN PAIN traZODone (DESYREL) 100 MG PO BEDTIME PRN TO SLEEP [MITIGARE] 0.6 MG PO DAILY PRN TOE PAIN / GOUT FLARE UP LORATADINE (CLARITIN) 10 MG PO DAILY PANTOPRAZOLE DR (PROTONIX) 40 MG PO DAILY ROSUVASTATIN (CRESTOR) 5 MG PO DAILY LISINOPRIL (ZESTRIL) 20 MG PO DAILY SgHx: . Stomach mac, right elbow surgery, cholecystectomy, aortic valve replacement SHx: Tob: none FHx: .No significant hx of DVT/PE.Alcohol: none Drugs: none Lives: with spouse ..Vitals:Vital Signs: Date Time Temp Pulse Resp B/P B/P Pulse O2 O2 Flow FiO2 Mean Ox Delivery Rate 06/23 1510 95.4 65 17 115/67 83.0 98 Nasal cannula 06/23 1403 Nasal 3 cannula 06/23 1345 67 16 110/61 98 Nasal 3 cannula 06/23 1330 71 18 110/63 97 Nasal 3 cannula 06/23 1315 72 18 111/56 96 Simple 8 mask 06/23 1300 74 16 110/57 100 Simple 8 mask 06/23 1259 Simple 8 mask 06/23 1250 98.6 69 16 105/63 99 Simple 8 mask 06/23 0905 97.9 66 16 119/71 98 Room air Gen: Alert, in mild discomfort.EYE: Nl lids conjunctiva.ENT: Nl ears Nose, nl lips,. Neck: Supple, nl thyroid, No masses.CV: Regular Rate Rhythm, no heave or significant murmur. Edema- none RESP: Clear to Auscultation, normal Respiratory effort.ABD: Soft, NonDistended,.LYM: No significant cervical Lymphadenopathy.MS: No sign of compartment syndrome, hip dressing is dry and intact. Drain.NEURO: Nonfocal, grossly normal sensation of LE, +Ankle DF/PF..Preop Labs(05/26/23): CBC:. Hgb 12.1 Jsy165 , CHEM: Na 144 , K 4.8, Cr0.89 (Egfr95 %), . Ekg: Sinus rhythm .(medium to high risk of complications or morbidity) (major surgery) (IV sedative, meds).Assessment Plan1.) Anemia of Acute Blood Loss- .will recheck tomorrow. 2.) S/p Right FANY- .acute multi-modal pain control and followup. Anticoagulation as per Dr. Leose3.) Hypertension Metallic Aortic Valve Replacement- .follow BP and hold Rxs if SBP<120. 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 CPAP. Bony Funez M.D. Thanks!..... G8417 BMI documented as above normal parameters and a f/u plan is [id number] - Patient screened for tobacco use AND identified as a tobacco non-[id number] - ACP discussion - default code status while at [facility]. at 2106 RPT #:[id number] OF REPORT CLClinical cbid1770-48-70Z80:42:00Y.[id number] able for patient iffbQEUMOZGNYBJATQ8024-81-68Z80:06:22 [facility] 2023-06-23 12:34:00 [id number] Z7SQNwGzzcFMrkmnIpSDTTcENecB8 7asMpSpRuHlLWtfUU8vvfMXNXAj0325-13-85Z73:34:14947 4-0049 [facility] [id number] PATIENT NAME: ABDULAZIZ MARTINEZ ADMIT DATE: 06/23/23ACCOUNT NO: [id number] ROOM NO: .[facility] AGE: 68 REPORT TYPE: OPERATIVE REPORT SEX: M ADMITTING PHYSICIAN:Montez Nguyen MD ATTENDING PHYSICIAN:Montez Nguyen MD OPERATION DATE: 06/23/2023 PREOPERATIVE DIAGNOSIS: Right hip osteoarthropathy. POSTOPERATIVE DIAGNOSIS: Right hip osteoarthropathy, M16.11. OPERATIVE PROCEDURES PERFORMED:1. Computer-assisted imageless right total hip arthroplasty, . IMPLANTS UTILIZED: DePuy total hip system, size 56 mm Gription acetabular shell, +4 neutral polyethylene liner, size 8 high offset ACTIS femoral stem, 36 mm ceramic head, +1.5 neck. Both the acetabular and femoral components were press-fit. ANESTHESIA: General. ESTIMATED BLOOD LOSS: Less than 30 mL. SURGEON: Montez Nguyen M.D. PRODUCT TECHNICIAN: BRITTANI Morrison. OPERATIVE FINDINGS: As above. SURGICAL SPECIMENS SENT: None. CLINICAL INDICATIONS: Ms. Martinez is a 68-year-old male from [place], [place], who has been having severe and progressive pain in his right hip for the past 10years. The pain is quite disabling in nature. He is currently using a walker for ambulation. His pain is not abated despite extensive nonoperative treatment. Due to his progressive disability and lack of response to nonoperative intervention, he is admitted for computer-assisted imageless right total hip arthroplasty. OPERATIVE NARRATIVE:1. COMPUTER-ASSISTED IMAGELESS RIGHT TOTAL HIP ARTHROPLASTY, . Mr. Martinez was brought into the operative suite. At which time, he was placed insupine position on the OR table. Routine monitors were established. General anesthesia was delivered. After satisfactory induction of general anesthesia, PATIENT NAME: ABDULAZIZ MARTINEZ the patient was placed in the left lateral decubitus position per Ms. Morrison. Pulses were checked and noted to be patent x4. The right hip was then circumferentially prepped and draped in the usual sterile fashion per Ms. Morrison. Anterolateral Hardinge approach was performed. Iliotibial band dividedin line with the skin incision. The abductors were taken sharply off their insertion at the greater trochanter. An anterior capsulotomy was performed. The femoral head was then dislocated anteriorly. The femoral neck was resected 15 mm proximal to the lesser trochanter as per preoperative templating. The acetabular labrum was then circumferentially excised. Circumferentially acetabular retractors were placed. Sequential reaming was performed to a size 55 mm reamer. At this time, 2 percutaneous pins were placed in the superior aspect of iliac crest and the OrthAlign guide was placed and the hip was registered. Utilizing realtime computer guidance, the acetabular component was placed in 40 degrees of abduction and 15 degrees of anteversion. A +4 neutral polyethylene insert was then placed. Attention was then turned to the proximal femur. Sequential broaching was performed. Utilizing the 8 broach as a trial, 40 mm head, +1.5 high-offset neck was placed and the hip was reduced. Clinically, religion of leg length and offset was achieved. Clinically, no impingement was seen. Appropriate soft tissue tensioning was noted. Intraoperative x-rays confirmed religion of leg length and offset with appropriate orientation of the implants. The hip was then dislocated, the broach was removed and the formal size 8 high offset ACTIS femoral stem was then press fit. A 40 mm ceramic head +1.5 neck was then placed and the hip was once again reduced. Thorough lavage with antibiotic solution was performed. The abductors were meticulously repaired utilizing a #5 Ethibond suture incorporating a transosseous suture technique. Medium Hemovac drain was then placed deep to the iliotibial band. The iliotibial band was closed in a watertight fashion with a ztrrve-ft-prxqh #5 Ethibond suture. Skin closure was performed with a subcuticular 0 Vicryl, followed by 2-0 Vicryl, followed by an Ethicon Prineo mesh suture as per Ms. Morrison. Postoperative anesthetic injection performed by Ms. Morrison. Sterile dressing was applied by Ms. Morrison. Mr. Martinez was then extubated, taken to recovery room awake and alert without any anesthetic or operative complications. At the end of the case, sponge and needle counts were correct x2. During the procedure, Ms. Morrison was invaluable in positioning the patient alongwith preparation and draping of the extremity. She was also vital providing surgical exposure throughout the procedure, which greatly expedited the performance of the procedure in addition to protection of neurovascular structures. Finally, she was responsible for closure of the postoperative incisions and application of postoperative dressing. Utilizing the OrthAlign guidance system allows precise placement of the acetabular component, which is essential for both short-term and long-term success of the prosthesis. Dictated By: Montez Nguyen MD Date Dictated: 06/23/2023 12:34:03Date Transcribed: 06/23/2023 13:57:35RLB/ALICE/Adonis #: [id number] PATIENT NAME: ABDULAZIZ MARTINEZ Receipt ID: [id number] by Montez Nguyen MD On 06/24/2023 07:38:18 AM at 0738 PATIENT NAME: ABDULAZIZ MARTINEZ klesmb3466-26-79H24:57:00Y.[id number] lable for patient dauaEHXVMQZIRXVTYD8812-02-61D59:38:58 [facility]23-[facility] 06:29:00 [id number]+H 2dvuBVIzIKdDlQNOd+xImN1EJWQwR iTblA9v7N1Yb66aD//ZixyiDzUg5218-23-76P97:29:00 [facility] ([facility])Brief Op NoteREPORT#:[id number] REPORT STATUS: SignedREPORT INITIALIZATION DATE:06/23/23 TIME: 628 PATIENT: ABDULAZIZ AMRTINEZ UNIT #: [id number]#: [id number] ROOM/BED: Y998-10DOB: [birth year] AGE: 68 SEX: M ATTEND: Montez Nguyen MDA AUTHOR: Valeria Morrison PAREPT SERVICE DT/TIME: 06/23/23628* ALL edits or amendments must be made on the electronic/computer document * Op/Inv Proc Note - BriefPre-procedure diagnosis:Right hip osteoarthritisPost-procedure diagnosis: same as pre procedure dxProcedures performed:Right total hip arthroplastyPrimary Surgeon:Carrietant(s): Prince PETER-CFindings:as aboveComplications: noneEstimated blood loss in ml's: 25ccSpecimens removed/altered: none at 0630 at 0942 RPT #:[id number] OF REPORT OPOperative hnjcvl3045-96-18U55:29:00Y.VJLO13061360-1000BNGoi ilable for patient vqmkMOIVLHJFYPJBIY5302-80-61C94:31:01 [facility] 2023-06-19 05:47:00 [id number] o0ylr7YfphRkcMFiFCT+EmqPXM8sA ynsPUqcn4s6hjrYHlNqJs3ffvpt0334-12-31W93:47:36542 0-0006 [facility] [address] PATIENT NAME: ABDULAZIZ MARTINEZ ADMIT DATE: ACCOUNT NO: [id number] ROOM NO: AGE: 68 REPORT TYPE: HISTORY AND PHYSICAL SEX: M ADMITTING PHYSICIAN: ATTENDING PHYSICIAN:Montez Nguyen MD ADMISSION DATE: 06/23/2023 07:30:00 ADMITTING DIAGNOSIS: Right hip osteoarthritis, M16.11. HISTORY OF PRESENT ILLNESS: Mr. Martinez is a 68-year-old male who has been having chronic and disabling pain in his right hip for the past 7 years. The pain has become quite disabling over the past 2 years. He is currently ambulating with the use of a walker. His pain has not responded to extensive nonoperative intervention. Due to his severe disability and lack of response tononoperative treatment, he is admitted for computer-assisted imageless right total hip arthroplasty. PAST MEDICAL HISTORY: Arthritis, diabetes, coronary artery disease, hypertension, and uropathy. PAST SURGICAL HISTORY: Surgeries include total knee surgery and wrist surgery. FAMILY HISTORY: Unremarkable. SOCIAL HISTORY: He does not smoke nor does he drink. ALLERGIES: NO ALLERGIES ARE LISTED. MEDICATIONS: Allopurinol, carvedilol, Lasix, levothyroxine, lisinopril, loratadine, montelukast, pantoprazole, rosuvastatin, and Coumadin. REVIEW OF SYSTEMS: Negative. PHYSICAL EXAMINATION:VITAL SIGNS: 6 feet 2 inches tall and weight 129.5 kg.HEENT: Within normal limits.CARDIAC: Regular rate and rhythm. No murmur.CHEST: Clear.ABDOMEN: Benign.BACK: No CVA tenderness.EXTREMITIES: Leg lengths are equal. He has limited and painful rotation of theright hip. His distal neurovascular status is intact. IMAGING: Radiographic evaluation reveals severe osteoarthritis of both hips. ASSESSMENT: Right hip pain secondary to severe osteoarthritis. PATIENT NAME: ABDULAZIZ MARTINEZ SURGICAL PLAN: Computer-assisted imageless right total hip arthroplasty. I have gone over at length with Mr. Martinez the associated risks involved with thisprocedure. He understands that these risks include but are not limited to bleeding, infection, neurovascular damage, leg length inequality, dislocation ofthe prosthesis, loosening of the prosthesis requiring possible revision, painfulscar, persistent limp, deep vein thrombi leading to pulmonary emboli along with complications secondary to anesthesia. Furthermore, he understands that there are no guarantees or warranties that he would be pain free as a result of the procedure. He understands that it is extremely important to optimize his blood sugar management, both preoperatively and postoperatively in order to minimize the risk of postoperative complications. He understands that he would receive press-fit fixation of both the acetabular and femoral components. He accepts these risks and gives his informed consent to proceed. Dictated By: Montez Nguyen MD Date Dictated: 06/19/2023 05:47:08Date Transcribed: 06/19/2023 06:44:33WES/Jessica #: [id number] ID: [id number] by Montez Nguyen MD On 06/19/2023 08:21:04 AM at 0821 PATIENT NAME: ABDULAZIZ MARTINEZ and physical pbflicuzygv2610-52-45D43:44:00Y.[id number] VAvailable for patient eqhoUHYOFLUSWZGAXS3185-61-73Q79:21:42 [facility] 2021-04-26 09:00:00 [id number] J6iyNH+y8LXNdV8n4QMo8F0y1dkWR WRJW7EpysIeRzp5HTxDy8Tt5whs4433-49-11O18:00:62438 7-0001 [place] [address] PATIENT NAME: ABDULAZIZ MARTINEZ ADMIT DATE: 04/24/21ACCOUNT NO: [id number] ROOM NO: AGE: 65 REPORT TYPE: eTRANSESOPHAGEAL ECHO SEX: M ADMITTING PHYSICIAN: ATTENDING PHYSICIAN:Miguel Srinivasan MD *[facility]*[address] [place], [place] [address]Phone Transesophageal Echocardiogram Patient: Abdulaziz Martineztudy Date: 04/24/2021 BP: [id number] 1955 Age: 65 Height: / Gender: M Weight: /BMI/BSA: / *Ordering Physician: * Miguel Srinivasan MD *Interpreting Physician: * Miguel Srinivasan MD*Ditch Digger: Nicky Barrios RDCS, Tanmay Indications: Endocarditis at outside facility. Study data: Consent: The risks, benefits, and alternatives to theprocedure were explained to the patient and informed consent wasobtained. Procedure: Initial setup: The patient was brought to thelaboratory in the fasting state.Intravenous access was obtained. SurfaceECG leads and pulse oximetric signals were monitored. Sedation. Moderatesedation was administered by cardiology staff. Transesophagealechocardiography was performed. Topical anesthesia was obtained usingviscous lidocaine. A transesophageal probe (SN: [id number]) was inserted bythe attending veterinary surgeon without difficulty. Images were obtainedusing a Cequens cardiac ultrasound machine. Image quality was good. 2D,spectral Doppler, and color Doppler. Location: Echo laboratory.Patient status: Outpatient. Patient room number: 1. Study status:Routine. Study completion: The patient tolerated the procedure well.There were no complications. Findings PATIENT NAME: ABDULAZIZ MARTINEZ [phone] [place] [address] PATIENT NAME: ABDULAZIZ MARTINEZ ADMIT DATE: 04/24/21ACCOUNT NO: [id number] ROOM NO: AGE: 65 REPORT TYPE: eTRANSESOPHAGEAL ECHO SEX: M ADMITTING PHYSICIAN: ATTENDING PHYSICIAN:Miguel Srinivasan MD Left ventricle: The cavity size is normal. The estimated ejectionfraction is 55-60%, by visual assessment. Doppler parameters areconsistent with abnormal left ventricular relaxation (grade 1 diastolicdysfunction).Right ventricle: The cavity size is normal. Systolic function isnormal.Ventricular septum: The ventricular septum is normal.Left atrium: The atrium is normal in size. There is no evidence of athrombus in the atrial cavity or appendage.Right atrium: The atrium is normal in size.Atrial septum: No defect or patent foramen ovale is identified.Aorta: The aorta is normal. Minimal plaque noted.Aortic valve: There is a normal functioning mechanical valve. There isno evidence of a vegetation. There is no evidence of stenosis. Thereis no regurgitation.Mitral valve: The leaflets are normal thickness. There is no evidenceof a valvular mass. Possible redundant cord versus torn cord. There ismild regurgitation.Tricuspid valve: The valve is structurally normal. There is noevidence of a vegetation. There is no regurgitation.Pulmonic valve: Not well visualized. There is no regurgitation. Conclusions Summary: 1. Left ventricle: The cavity size is normal. The estimated ejection fraction is 55-60%, by visual assessment. Doppler parameters are consistent with abnormal left ventricular relaxation (grade 1 diastolic dysfunction).2. Left atrium: There is no evidence of a thrombus in the atrial cavity or appendage.3. Atrial septum: No defect or patent foramen ovale is identified.4. Aortic valve: There is a normal functioning mechanical valve. There is no evidence of a vegetation.5. Mitral valve: There is no evidence of a valvular mass. Possible redundant cord versus torn cord.6. Tricuspid valve: There is no evidence of a vegetation. Prepared and electronically signed by PATIENT NAME: ABDULAZIZ MARTINEZ [phone] [place] [address] PATIENT NAME: ABDULAZIZ MARTINEZ ADMIT DATE: 04/24/21ACCOUNT NO: [id number] ROOM NO: AGE: 65 REPORT TYPE: eTRANSESOPHAGEAL ECHO SEX: M ADMITTING PHYSICIAN: ATTENDING PHYSICIAN:Miguel Srinivasan MD, Gregory MD04/26/2021 09:00 at 0900 PATIENT NAME: ABDULAZIZ MARTINEZ prtrnio8630-31-63M71:00:00Z.[id number] ilable for patient vbrbPKXIMVJSBYNOEL3477-40-67T04:01:[address] [facility] 2021-04-24 12:18:00 WZtonifzqwr38832639r 1SZzW7K8Z0Gomz3wzvNfEKSwD5UQX kKsPpI6a9B/TqPRaBer6cXi3xCXOdq9FTg1235-52-90Z65:1 [id number] [place] [address] PATIENT NAME: ABDULAZIZ MARTINEZ ADMIT DATE: 04/24/21ACCOUNT NO: [id number] ROOM NO: AGE: 65 REPORT TYPE: ELECTROCARDIOGRAM SEX: M ADMITTING PHYSICIAN: ATTENDING PHYSICIAN:Miguel Srinivasan MD Order:[id number] Reason : PRE CATHLAB PROCEDURE Test Date/Time Stamp:ThuApr 24 2021 12:18:32Blood Pressure : / mmHGVent. Rate : 069 BPM Atrial Rate : 069 BPM P-R Int : 176 ms QRS Dur : 138 ms QT Int : 460 ms P-R-T Axes : 045 039 044 degrees QTc Int : 492 ms Normal sinus rhythmRight bundle branch blockAbnormal ECGNo previous ECGs availableConfirmed by FAUSTO VALENZUELA ([id number]) on 04/24/2021 4:55:26 PM Referred By: Self Referred Confirmed by:FAUSTO VALENZUELA at 1655 PATIENT NAME: ABDULAZIZ MARTINEZ .[id number] AVAvailable for patient mrnwRTZTUQYVHJDVZP7723-45-36R74:56:[address] [facility] 2021-02-01 08:22:00 [id number] Oqf6vD6V7asmvTMNXhXsT+qF88Iif /n95PAs51kY1mqa/7ETZoVVFUuwI3OuOMN1611-94-47O23:2 2:[id number] [place] [address] PATIENT NAME: ABDULAZIZ MARTINEZ ADMIT DATE: 02/01/21ACCOUNT NO: [id number] ROOM NO: AGE: 65 REPORT TYPE: OPERATIVE REPORT SEX: M ADMITTING PHYSICIAN: ATTENDING PHYSICIAN:Montez Nguyen MD OPERATION DATE: 02/01/2021 PREOPERATIVE DIAGNOSIS: Right knee meniscal tearing. POSTOPERATIVE DIAGNOSES:1. Complex tear, posterior horn, medial meniscus, right knee, S83.241A.2. Complex tear involving the anterior horn, body and posterior horn lateralmeniscus, right knee, S83.281A.3. A 5 mm loose body popliteal recess, right knee, M23.41. OPERATIVE PROCEDURES PERFORMED:1. Right knee diagnostic arthroscopy and arthroscopic partial medial andlateral meniscectomy, 54847.2. Arthroscopic loose body removal, [address]. ANESTHESIA: General. TOURNIQUET TIME: 18 minutes. ESTIMATED BLOOD LOSS: None. SURGEON: Montez Nguyen M.D. KEG HEADER: BRITTANI Faust INDICATIONS: Mr. Martinez is a 65-year-old male from [place], [place], whosustained a traumatic injury to his right knee after suffering a recent fall. His clinical as well as radiographic evaluation demonstrate symptomatic tearinginvolving the medial and lateral menisci with an incarcerated fragment. He wasadmitted for arthroscopic meniscectomy. OPERATIVE NARRATIVE:1. RIGHT KNEE DIAGNOSTIC ARTHROSCOPY WITH AN ARTHROSCOPIC PARTIAL MEDIAL ANDLATERAL MENISCECTOMY, 64110.1. ARTHROSCOPIC LOOSE BODY REMOVAL, 23103. Mr. Martinez was brought to the operative suite where he was placed in supineposition on the OR table. Routine monitors were established. Generalanesthesia was delivered. After satisfactory induction of general anesthesia, atourniquet was applied to the patient's right lower extremity per Mr. Rodriguezand the leg was placed in arthroscopic leg boston per Mr. Rodriguez. The leg wasthen elevated, exsanguinated and tourniquet insufflated to 300 mmHg. The right PATIENT NAME: ABDULAZIZ MARTINEZ knee was circumferentially prepped and draped in the usual sterile fashion perMr. Rodriguez. The anterolateral arthroscopic portal was established. Thepatient was noted to have a posttraumatic hematoma involving the suprapatellarpouch. A 1 cm transverse incision was made directly in line with the distalquadriceps tendon and a prominent hematoma was evacuated. The arthroscope wasthen introduced in the joint. Systematic arthroscopic evaluation performed. Patellofemoral evaluation revealed grade IV changes involving the trochlea. Nounstable cartilage was present. Medial and lateral facets of the patella wereunremarkable. Medial gutter was unremarkable. Medial compartment revealed acomplex tear involving the posterior horn of the medial meniscus resected in astable configuration. Gouty crystal deposition was present throughout the knee,a grade III chondral flap was noted above the medial femoral condyle and thiswas excised. The tibial articular surface was unremarkable. Femoral notch withan intact anterior as well as posterior cruciate ligament. The lateralcompartment revealed a complex tear involving the anterior horn, body andposterior horn of the lateral meniscus with significant gouty deposition. Excision of all pathologic tissue was performed, grade II chondral pathology ofthe lateral femoral condyle, debridement was performed of any unstable articularcartilage. A 5 mm loose body was noted in the popliteal recess and this wasremoved. Thorough lavage was then performed with lactated Ringer solution. Arthroscopicportals were closed respectively with a 4-0 nylon suture per Mr. Rodriguez. Thetransverse incision was closed in a similar fashion per Mr. Rodriguez. A steriledressing was then applied per Mr. Rodriguez and the patient was then extubated tothe recovery room, awake and alert without any anesthetic or operativecomplications. At the end of the case, sponge and needle counts were correctx2. During the procedure, Mr. Rodriguez was invaluable in positioning the patientalong with preparation and draping of the extremity. He was also responsiblefor allowing surgical exposure throughout the procedure in addition to closureof the postoperative incisions and application of postoperative dressing. Dictated By: Montez Nguyen MD WT: OP:ANKUSH/JOAQUIM/ANURADHADD: 02/01/2021 08:22:56DT: 02/01/2021 10:08:03Conf#: [id number]/DID#: [id number] Authenticated by Montez Nguyen MD On 02/01/2021 03:53:15 PM at 1553 PATIENT NAME: ABDULAZIZ MARTINEZ ymswbr1397-69-33L69:08:00Y.[id number] lable for patient dcvbIZUBBBJQWUKDHN0328-92-05F97:53:50 [facility] 2021-02-01 07:43:00 [id number] nLc3d8OkmnPgDEV2TD1eIIjc7M7ij GL2U1dB5vcPtbaTiOzeDDb19gX2FpUFvpf8635-54-68I75:4 3:00 [facility] ([facility])Brief Op NoteREPORT#:[id number] REPORT STATUS: SignedDATE:02/01/21 TIME: 07 PATIENT: ABDULAZIZ MARTINEZ UNIT #: [id number]#: [id number] ROOM/BED:: 57 AGE: 65 SEX: M ATTEND: Montez Nguyen MDA AUTHOR: Montez Nguyen MD * ALL edits or amendments must be made on the electronic/computer document * Op/Inv Proc Note - BriefPre-procedure diagnosis:Right knee meniscus tearLoose bodiesPost-procedure diagnosis: same as pre procedure dxProcedures performed:Right knee diagnostic arthroscopy with partial medial and lateral meniscectomy 04203Kiynzqf of loose bodies 93062Gjnawjr Surgeon:Carrietant(s): Michael PAFindings:as aboveComplications: noneEstimated blood loss in ml's: noneSpecimens removed/altered: none at 0820 [facility] #:[id number] OF REPORT OPOperative vxkyho9405-70-31J94:43:00Y.[id number] ilable for patient tpowNWKEDXXSJLGJJI1701-54-69Y41:20:18 [facility] 2021-01-31 15:51:00 [id number] fwKzWQyXtkBU6EcdTDiIvPZYv56xG 50xkx4R2uSOmKyZb0ykahV8IBtyhwmBvh35701-71-22M66:5 1:[id number] [facility] [address] [place] [address] PATIENT NAME: ABDULAZIZ MARTINEZ ADMIT DATE: 02/01/21ACCOUNT NO: [id number] ROOM NO: AGE: 65 REPORT TYPE: HISTORY AND PHYSICAL SEX: M ADMITTING PHYSICIAN: ATTENDING PHYSICIAN:Montez Nguyen MD ADMISSION DATE: 02/01/2021 ADMITTING DIAGNOSIS: Right knee incarcerated tear of the lateral meniscus withan ongoing medial meniscal tear in addition to chondromalacia. HISTORY OF PRESENT ILLNESS: Mr. Martinez is a 65-year-old male who sustained atraumatic injury to his right knee after a recent fall. As a result of thefall, he has sustained an incarcerated tear of the lateral meniscus along withan ongoing tear of the medial meniscus. He has moderate chondromalacia noted inaddition. Due to his significant disability due to the incarcerated meniscaltear and lack of response to nonoperative intervention, he is admitted forarthroscopic meniscectomy. PAST MEDICAL HISTORY: Chronic back pain, congestive heart failure, diabetes,hypertension, migraine headaches, renal stones, hypercholesterolemia, irregularheartbeat, hiatal hernia, osteoarthritis, pulmonary emboli and sleep apnea. PAST SURGICAL HISTORY: Include abdominal procedure, fracture repair,cholecystectomy, aortic valve replacement. FAMILY HISTORY: Emphysema as well as ALS in his mother. SOCIAL HISTORY: He is . 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 MEDICATIONS: Consist of Coumadin as well as an antihypertensive. In additionto the Coumadin, he also takes duloxetine, lisinopril, pantoprazole, loratadine,allopurinol, carvedilol, montelukast, Lasix, rosuvastatin, metformin as well astrazodone. ALLERGIES: NO ALLERGIES ARE LISTED. REVIEW OF SYSTEMS: Negative. PHYSICAL EXAMINATION:VITAL SIGNS: He is 6 feet 3 inches tall, 143 kg.HEENT: Within normal limits.CARDIAC: Regular rate and rhythm. No murmur.CHEST: Clear.ABDOMEN: Benign.BACK: No CVA tenderness.PERTINENT ORTHOPEDIC EVALUATION: Leg lengths are equal. Full painless motionof both hips. Examination of the right knee reveals a positive effusion. He PATIENT NAME: ABDULAZIZ MARTINEZ has 20 to 80 degrees of motion. He has severe pain along both the medial andlateral joint lines. No instability is present. His distal neurovascularstatus is intact. DIAGNOSTIC DATA: Radiographic evaluation reveals no significant arthriticchange. MRI evaluation revealed incarcerated tear of the lateral meniscus alongwith an ongoing medial meniscal tear. ASSESSMENT: Symptomatic meniscal tearing, right knee. SURGICAL PLAN: Arthroscopic meniscectomy with potential chondroplasty. I havegone over at length with Mr. Martinez the associated risks involved with thisprocedure. He understands that these risks include but are not limited tobleeding, infection, neurovascular damage, persistent pain, loss of motion,posttraumatic arthritis, recurrent tear, need for further operativeintervention, deep vein thrombi leading to pulmonary emboli along withcomplications secondary to anesthesia. He further understands that there are noguarantees or warranties that he will be pain free as a result of the procedure. Mr. Martinez accepts these risks and gives his informed consent to proceed. Dictated By: Montez Nguyen MD WT: HP:YLUIS/JOQAUIM/ANURADHADD: 01/31/2021 15:51:33DT: 01/31/2021 16:06:55Conf#: [id number]/DID#: [id number] by Montez Nguyen MD On 02/01/2021 03:53:11 PM at 1553 PATIENT NAME: ABDULAZIZ MARTINEZ and physical qhrgzaqvupx8080-68-20R59:06:00Y.[id number] VAvailable for patient zyrvARWGRXDHDJWOZJ2697-04-67I85:53:50 [facility]
[2024-01-22] MEDS ORDERED: MORPHINE 4 MG/ML SYR ONE (12:26)
[2024-01-22] MEDS ORDERED: ONDANSETRON 4 MG/2 ML VIAL ONE (12:26)
[2024-01-22] MEDS ORDERED: NA CHLORIDE 0.9% 1,000 ML ONE (12:27)
[2024-01-22 12:51] LABS: ALT/SGPT 16 U/L (16-61); AST/SGOT < 10 U/L (15-37); Albumin 2.8 g/dL (3.4-5.0); Albumin/Globulin Ratio 0.7 (1.1-1.8); Alkaline Phosphatase 87 U/L (45-117); Anion Gap 4.9 mEq/L (5.0-15.0); BUN Blood Urea Nitrogen 11 mg/dL (7-18); Bicarbonate 31 mEq/L (21-32); Bilirubin Total 0.3 mg/dL (0.2-1.0); Globulin 4.2 g/dL (2.3-3.5); Glomerular Filtration Rate 94 ml/min (=/>90); Glucose Level 114 mg/dL (74-106); Lipase 37 U/L (13-75); Potassium 3.9 mEq/L (3.5-5.1); Sodium Level 140 mEq/L (136-145)
[2024-01-22 12:52] LABS: Absolute Basophils 0.1 K/uL (0-0.5); Absolute Eosinophils 0.4 K/uL (0-0.5); Absolute Lymphocytes (CBC) 1.3 K/uL (0.7-4.9); Absolute Monocytes 0.6 K/uL (0.1-1.3); Absolute Neutrophil 7.2 K/uL (1.8-8.0); Basophils % 0.7 % (0-1.3); Eosinophils % 3.9 % (0-4.4); Hematocrit 38.6 % (39.6-49.0); Lymphocytes % 13.4 % (15.3-44.8); MCH 25.6 pg (27.0-35.0); MCV 82.5 fL (80-100); MPV 8.4 fL (7.6-11.3); Monocytes % 6.2 % (3.3-12.3); Neutrophils % 75.8 % (41.7-73.7); Platelets 335 thou/uL (152-406); RBC Red Blood Cell Count 4.68 M/uL (4.33-5.43); Red Cell Distribution Width 16.8 % (12.1-15.2)
--- NOTE | 2024-01-22 13:05 | RAD REPORT ---
EXAM DESCRIPTION: CTAbdomen Pelvis W Contrast - 01/22/2024 12:57 pm CLINICAL HISTORY: Abdominal pain. ABD PAIN COMPARISON: Abdomen Pelvis W Contrast dated 06/10/2023 TECHNIQUE: Biphasic CT imaging of the abdomen and pelvis was performed with 100 ml non-ionic IV cont rast. All CT scans are performed using dose optimization technique as appropriate and may include automated exposure control or mA/KV adjustment according to patient size. FINDINGS: The lung bases are clear.Postsurgical changes are seen about the stomach. Cholecystectomy clips. The liver, spleen, pancreas, adrenal glands and kidneys are within normal limits. 5 cm benign-appeari ng left renal cyst. No bowel obstruction, free air, free fluid or abscess. The appendix is normal. No evidence of signi ficant lymphadenopathy. Moderate lumbar degenerative changes. Right hip total arthroplasty. IMPRESSION: No acute intra-abdominal or pelvic finding.
[2024-01-22 14:28] LABS: Sqamous Epithelial None Seen /HPF (None Seen); Urine Bacteria None Seen /HPF (<20); Urine Bilirubin NEGATIVE (Negative); Urine Blood Negative (Negative); Urine Clarity Clear (Clear); Urine Color Light-Yellow (Yellow); Urine Culture Reflex Order NOT NEEDED; Urine Glucose 3+ (Negative); Urine Ketones NEGATIVE (Negative); Urine Microscopic Reflex YN ORDER UMIC; Urine Mucus Slight /HPF (None Seen); Urine Nitrite NEGATIVE (Negative); Urine Protein NEGATIVE (Negative); Urine RBC <5 /HPF (None Seen); Urine Urobilinogen Normal (Normal); Urine WBC <5 /HPF (<5); Urine pH 5.5 (5.0-7.0)
--- NOTE | 2024-01-22 14:30 | ER ---
Nurse's Notes [facility] Name: Gregg Martinez Age: 68 yrs Sex: Male : 1955 Arrival Date: 01/22/2024 Time: 11:44 Bed 6 Private MD: Diagnosis: Lower abdominal pain, unspecified Presentation: 01/21 12:10 Chief complaint: Sent by Dr. Rios for RLQ pain x 3 days. Coronavirus screen: At this hb time, the client does not indicate any symptoms associated with coronavirus-19. Ebola Screen: No symptoms or risks identified at this time. Initial Sepsis Screen: Does the patient meet any 2 criteria? No. Patient's initial sepsis screen is negative. Does the patient have a suspected source of infection? No. Patient's initial sepsis screen is negative. Risk Assessment: Do you want to hurt yourself or someone else? Patient reports no desire to harm self or others. Onset of symptoms was January 19, 2024. 12:10 Method Of Arrival: Ambulatory hb 12:10 Acuity: FAHEEM 3 hb Historical: - Allergies: 12:12 No Known Allergies; hb - Home Meds: 12:12 allopurinol 200 mg Oral tablet 1 tab daily [Active]; carvedilol 12.5 mg Oral tablet 2 hb times per day [Active]; furosemide 20 mg Oral tablet daily [Active]; gabapentin 300 mg (9)- 600 mg (24) Oral Tablet TID prn [Active]; levothyroxine 25 mcg tablet 1 tab daily [Active]; lisinopril 20 mg Oral tablet daily [Active]; loratadine 10 mg Oral tablet daily [Active]; magnesium glycinate oral 420 mg daily [Active]; methocarbamol 750 mg Oral tablet TID prn [Active]; Mitigare 0.6 mg Oral capsule BID PRN [Active]; montelukast 10 mg Oral tablet daily [Active]; Mounjaro 5 mg/0.5 mL subcutaneous Pen Injector every week [Active]; pantoprazole 40 mg Oral tablet daily [Active]; rosuvastatin 5 mg Oral tablet daily [Active]; tramadol 50 mg Oral tablet 1-2 tabs PRN [Active]; trazodone 100 mg Oral tablet as needed [Active]; Tresiba FlexTouch U-100 100 unit/mL (3 mL) subcutaneous Insulin Pen 20 units daily [Active]; warfarin 10 mg Oral tablet daily [Active]; Xigduo XR 10-1 Oral tablet daily [Active]; Xigduo XR 10-1 Oral tablet daily [Active]; - PMHx: 12:12 diabetes mellitus; Hypercholesterolemia; Gout; Hypothyroidism; Hypertensive disorder; hb Chronic pain; lymphedema; - Immunization history:: Adult Immunizations up to date. - Infectious Disease History:: Denies. - Social history:: Smoking status: Patient denies any tobacco usage or history of. Screenin:05 [facility] ED Fall Risk Assessment (Adult) History of falling in the last 3 months, rs5 including since admission No falls in past 3 months (0 pts) Confusion or Disorientation No (0 pts) Intoxicated or Sedated No (0 pts) Impaired Gait No (0 pts) Mobility Assist Device Used No (0 pt) Altered Elimination No (0 pt) Score/Fall Risk Level 0 - 2 = Low Risk Oriented to surroundings, Maintained a safe environment. Abuse screen: Denies threats or abuse. Nutritional screening: No deficits noted. Tuberculosis screening: No symptoms or risk factors identified. Assessment: 12:01 General: Appears in no apparent distress. uncomfortable, Behavior is calm, cooperative. rs5 Pain: Complains of pain in RLQ Pain currently is 3 out of 10 on a pain scale. Quality of pain is described as aching, Is continuous. Neuro: Level of Consciousness is awake, alert, obeys commands, Oriented to person, place, time, situation. Cardiovascular: Patient's skin is warm and dry. Rhythm is regular. Respiratory: Airway is patent Respiratory effort is even, unlabored, Respiratory pattern is regular, symmetrical. GI: Abdomen is round non-distended, Bowel sounds present X 4 quads. GI: Patient currently denies nausea. : No signs and/or symptoms were reported regarding the genitourinary system. EENT: No signs and/or symptoms were reported regarding the EENT system. Derm: Skin is intact, Skin is pink, warm \T\ dry. Musculoskeletal: Range of motion: intact in all extremities. 13:28 Reassessment: Patient and/or family updated on plan of care and expected duration. Pain rs5 level reassessed. Patient is alert, oriented x 3, equal unlabored respirations, skin warm/dry/pink. 14:25 Reassessment: No changes from previously documented assessment. rs5 Vital Signs: 12:10 BP 123 / 70; Pulse 61; Resp 16; Temp 98.4(O); Pulse Ox 98% on R/A; Weight 129.27 kg; hb Height 6 ft. 3 in. ; Pain 0/10; 13:37 BP 127 / 74; Pulse 66; Resp 17; Pulse Ox 99% ; rs5 14:40 BP 132 / 76; Pulse 68; Resp 17; Pulse Ox 99% on R/A; rs5 12:10 Body Mass Index 35.62 (129.27 kg, 190.5 cm) hb 12:10 Pain Scale: Adult hb ED Course: 11:46 Patient arrived in ED. mr 11:48 Emanuel Belcher MD is Attending Physician. ec2 12:05 Patient has correct armband on for positive identification. Placed in gown. Bed in low rs5 position. Call light in reach. Side rails up X2. 12:05 No provider procedures requiring assistance completed. rs5 12:10 Blas Martin, ELIDA is Primary Nurse. rs5 12:12 Triage completed. hb 12:15 Arm band placed on. hb 12:58 CT Abd/Pelvis - IV Contrast Only In Process Unspecified. EDMS 14:30 Mart Shrestha MD is Referral Physician. ec2 14:45 IV discontinued, intact, bleeding controlled, No redness/swelling at site. Pressure rs5 dressing applied. Administered Medications: 12:25 Drug: NS 0.9% IV 1000 ml IV at 1 bolus Per protocol; 1000 mL bolus Route: IV; Rate: 1 rs5 bolus; Site: right antecubital; 12:50 Follow up: Response: No adverse reaction rs5 13:28 Not Given (Patient Refused): ondansetron 4 mg IVP once; over 2 minutes rs5 13:29 Not Given (Patient Refused): morphineor iv 4 mg IVP once over 4 mins rs5 Medication: 13:37 VIS not applicable for this client. rs5 Outcome: 14:29 Discharge ordered by . ec2 14:45 Discharged to home ambulatory, rs5 14:45 Condition: stable 14:45 Discharge instructions given to patient, family, Instructed on discharge instructions, follow up and referral plans. Demonstrated understanding of instructions, follow-up care, 14:49 Patient left the ED. rs5 Signatures: Dispatcher [employer] ED Dena Suh, Reg Reg mr Fallon Blum RN RN Blas Martin RN RN rs5 Emanuel Belcher MD MD ec2 Corrections: (The following items were deleted from the chart) 13:05 13:05 Ondansetron IVP 4 mg IVP in right antecubital rs5 rs5 13:28 12:30 morphine IVP or IV 4 mg IVP in right antecubital over 4 mins rs5 rs5 13:28 12:30 Ondansetron IVP 4 mg IVP in right antecubital rs5 rs5 16:36 15:01 BP 132 / 76; Pulse 68bpm; Resp 17bpm; Pulse Ox 99% RA; rs5 rs5
--- NOTE | 2024-01-22 14:30 | EDPHYS ---
Physician Documentation [facility] Name: Gregg Martinez Age: 68 yrs Sex: Male : 1955 Arrival Date: 01/22/2024 Time: 11:44 Bed 6 Private MD: ED Physician Emanuel Belcher HPI: 01/21 12:13 This 68 yrs old Male presents to ER via Ambulatory with complaints of ec2 Abdominal Pain. 12:13 Patient arrives today for evaluation of abdominal pain. Patient reports abdominal pain ec2 ongoing for the past several days. Reports associated nausea, no vomiting. Patient reports no diarrhea. Patient reports no urinary complaints. Reports he was seen by primary care and told to come to the emergency department for further evaluation.. Historical: - Allergies: 12:12 No Known Allergies; hb - Home Meds: 12:12 allopurinol 200 mg Oral tablet 1 tab daily [Active]; carvedilol 12.5 mg Oral tablet 2 hb times per day [Active]; furosemide 20 mg Oral tablet daily [Active]; gabapentin 300 mg (9)- 600 mg (24) Oral Tablet TID prn [Active]; levothyroxine 25 mcg tablet 1 tab daily [Active]; lisinopril 20 mg Oral tablet daily [Active]; loratadine 10 mg Oral tablet daily [Active]; magnesium glycinate oral 420 mg daily [Active]; methocarbamol 750 mg Oral tablet TID prn [Active]; Mitigare 0.6 mg Oral capsule BID PRN [Active]; montelukast 10 mg Oral tablet daily [Active]; Mounjaro 5 mg/0.5 mL subcutaneous Pen Injector every week [Active]; pantoprazole 40 mg Oral tablet daily [Active]; rosuvastatin 5 mg Oral tablet daily [Active]; tramadol 50 mg Oral tablet 1-2 tabs PRN [Active]; trazodone 100 mg Oral tablet as needed [Active]; Tresiba FlexTouch U-100 100 unit/mL (3 mL) subcutaneous Insulin Pen 20 units daily [Active]; warfarin 10 mg Oral tablet daily [Active]; Xigduo XR 10-1 Oral tablet daily [Active]; Xigduo XR 10-1 Oral tablet daily [Active]; - PMHx: 12:12 diabetes mellitus; Hypercholesterolemia; Gout; Hypothyroidism; Hypertensive disorder; hb Chronic pain; lymphedema; - Immunization history:: Adult Immunizations up to date. - Infectious Disease History:: Denies. - Social history:: Smoking status: Patient denies any tobacco usage or history of. ROS: 12:13 Constitutional: as per hpi ec2 Exam: 12:13 Constitutional: GEN: NAD Head: atraumatic Eyes: EOMI Ears: External ears are ec2 normal. CV: regular rate LUNGS: no respiratory distress ABD: non-distended, soft, tender in the right lower quadrant, no guarding, not rigid SKIN: no evidence of rashes MSK: no evidence of trauma NEURO: moves all extremities equally Vital Signs: 12:10 BP 123 / 70; Pulse 61; Resp 16; Temp 98.4(O); Pulse Ox 98% on R/A; Weight 129.27 kg; hb Height 6 ft. 3 in. ; Pain 0/10; 13:37 BP 127 / 74; Pulse 66; Resp 17; Pulse Ox 99% ; rs5 14:40 BP 132 / 76; Pulse 68; Resp 17; Pulse Ox 99% on R/A; rs5 12:10 Body Mass Index 35.62 (129.27 kg, 190.5 cm) hb 12:10 Pain Scale: Adult hb MDM: 12:08 Patient medically screened. ec2 12:13 Data reviewed: vital signs. ED course: Patient arrives today for right-sided abdominal ec2 pain. Examination remarkable for abdominal findings as noted above. Will obtain lab work, urine studies, CT imaging. Differential would include ureteral stone, appendicitis, diverticulitis.. 12:53 ED course: Metabolic profile shows appropriate electrolytes. Lipase is within normal ec2 ranges. . 13:13 ED course: CBC shows slight anemia, no leukocytosis. CT abdomen pelvis shows no acute ec2 intra-abdominal process. . 14:29 ED course: Urine testing negative for infection. Will discharge home, have patient ec2 follow-up with primary care doctor as well as GI. Return precautions given.. 01/21 12:12 Order name: CBC with Diff; Complete Time: 13:12 ec2 01/21 12:12 Order name: CMP; Complete Time: 12:53 ec2 01/21 12:12 Order name: Lipase; Complete Time: 12:53 ec2 01/21 12:12 Order name: Urinalysis w/ reflexes; Complete Time: 14:29 ec2 01/21 12:12 Order name: CT Abd/Pelvis - IV Contrast Only; Complete Time: 13:12 ec2 01/21 12:12 Order name: IV Saline Lock; Complete Time: 13:05 ec2 01/21 12:12 Order name: Labs collected and sent; Complete Time: 13:05 ec2 Administered Medications: 12:25 Drug: NS 0.9% IV 1000 ml IV at 1 bolus Per protocol; 1000 mL bolus Route: IV; Rate: 1 rs5 bolus; Site: right antecubital; 12:50 Follow up: Response: No adverse reaction rs5 13:28 Not Given (Patient Refused): ondansetron 4 mg IVP once; over 2 minutes rs5 13:29 Not Given (Patient Refused): morphineor iv 4 mg IVP once over 4 mins rs5 Disposition Summary: 01/22/24 14:29 Discharge Ordered Notes: Location: Home ec2 Condition: Stable ec2 Diagnosis - Lower abdominal pain, unspecified ec2 Followup: ec2 - With: Private Physician - When: - Reason: Re-evaluation by your physician Followup: ec2 - With: Mart Shrestha MD - When: - Reason: Recheck today's complaints Discharge Instructions: - Discharge Summary Sheet ec2 - Abdominal Pain, Adult ec2 Forms: - Medication Reconciliation Form ec2 - Antibiotic Education ec2 - Prescription Opioid Use ec2 - Patient Portal Instructions ec2 - Leadership Thank You Letter ec2 Prescriptions: - methocarbamol 500 mg Oral tablet - take 1 tablet ORAL route 4 times per day; 20 tablet; Refills: 0, Product ec2 Selection Permitted Signatures: Dispatcher [employer] Fallon Cook RN RN Blas Martin RN RN rs5 Emanuel Belcher MD MD ec2 Corrections: (The following items were deleted from the chart) 14:49 13:41 Hale ordered. ec2 rs5
[2024-01-22 15:24] VITALS: BP 127/74; TEMP 98.4; O2SAT 99
== END 2024-01-22 14:49 | disposition home or self-care (01) ==
LOC: ER 11:44
DX: R10.31 Right lower quadrant pain (principal)
CPT/HCPCS: 85025; 81001; 36415; 83690; 80053; 74177; 99284; Q9967; J7030; J2405

== ENCOUNTER 2024-04-07 17:50 | Inpatient (IN) | payer OTHER ==
--- OUTSIDE RECORDS SUMMARY | 2024-04-07 17:55 | XMS REPORT | Continuity of Care Document ---
Author Name Unknown Address [address] [facility]. [address] [place] [address] [facility] thconnect Address [address] [facility]. [address] [place] [address] Care Team Providers Care Interior Assemblies Installer Name Role Phone Radha Garibay Primary Care Physician [phone] Montez Nguyen Attending Clinician Unavailable SIENA GARIBAY Attending Clinician Unavailjaneen Perez Attending Clinician UnavailFausto Solis Cardiology Attending Clinician Unavailable Pob, [facility] Main Attending Clinician Nicky Mendiola MD Attending Clinician [phone] NICKY EDWARDS Attending Clinician Sandra salguero Doctor Unassigned, [place] Attending Clinician U Miguel Cisneros Attending Clinician Radha Vieyra Attending Clinician [phone] RADHA GARIBAY Attending Clinician Unavailable Montez Nguyen Admitting Clinician Unavailable Chris Admitting Clinician SIENA Aguilar Admitting Clinician Unavailabl e Payers Payer Name Policy Type Policy Number Effective Date Expirati on Date Source [employer] - CHOICE (POS II) [id number] 2021 00:00:00 [employer] 53 [id number] [facility] Problems Condition Name Condition Details Condition Category [...] of Left Knee Joint Problem Active 2022-08 00:00: 00 Dor[facility] [...] 00 [facility] [id number] Renal lesion Problem [facility] [id number] Complex renal cyst Problem [facility] [id number] Left kidney mass Problem [facility] Allergies, Adverse Reactions, Alerts Allergy Name Allergy Type Status Severity Reaction(s) Onset Date Inactive Date Treating Clinician Comments Source No Known Allergie s DA Active U 02-01 00:00: 00 [facility] No Known Allergie s DA Active U 02-01 00:00: 00 [facility] codeine DA Active U UNKNOWN 01-31 [...] NO KNOWN ALLERGIE S Drug Class Active [facility] Social History Social Habit Start Date Stop Date Quantity Comments Source History of Tobacco Use [facility] Sex Assigned At [facility] Smoking Status Start Date Stop Date Source Unknown if ever smoked [facility] Never Smoker [facility] Medications Ordered Medication Name Filled Medication Name Start Date Stop Date Current Medication? Ordering Clinician Indication Dosage Frequency Signature (SIG) Comments Components Source Lisinopril 20 MG Lisinopril 20 MG No [...] t} QD Pantoprazo le Sodium 40 MG warfarin 10 mg tablet TAKE 1 TABLET BY MOUTH EVERY DAY FOR 30 DAYS warfarin 10 mg tablet TAKE 1 TABLET BY MOUTH EVERY DAY FOR 30 DAYS No warfarin 10 mg tablet TAKE 1 TABLET BY MOUTH EVERY DAY FOR 30 DAYS [facility] Xigduo XR 10 [...] EVERY DAY IN THE MORNING WITH FOOD [facility] allopurinol 100 mg tablet TAKE 2 TABLETS BY MOUTH EVERY DAY allopurinol 100 mg tablet TAKE 2 TABLETS BY MOUTH EVERY DAY No allopurino l 100 mg tablet TAKE 2 TABLETS BY MOUTH EVERY DAY [facility] bupropion HCl XL 150 [...] BY MOUTH EVERY DAY IN THE MORNING [facility] carvedilol 12.5 mg tablet TAKE 1 TABLET BY MOUTH TWICE A DAY WITH FOOD FOR 90 DAYS carvedilol 12.5 mg tablet TAKE 1 TABLET BY MOUTH TWICE A DAY WITH FOOD FOR 90 DAYS No carvedilol 12.5 mg tablet TAKE 1 TABLET BY MOUTH TWICE A DAY WITH FOOD FOR 90 DAYS [facility] dexamethaso ne 4 mg tablet TAKE 1 TABLET BY MOUTH THREE TIMES A DAY dexamethaso ne 4 mg tablet TAKE 1 TABLET BY MOUTH THREE TIMES A DAY No dexamethas one 4 mg tablet TAKE 1 TABLET BY MOUTH THREE TIMES A DAY [facility] diclofenac 1 % topical gel APPLY 5 GRAMS TO AFFECTED AREA(S) 4 TIMES A DAY NEEDED diclofenac 1 % topical gel APPLY 5 GRAMS TO AFFECTED AREA(S) 4 TIMES A DAY NEEDED No diclofenac 1 % topical gel APPLY 5 GRAMS TO AFFECTED AREA(S) 4 TIMES A DAY NEEDED [facility] doxycycline hyclate 100 mg capsule TAKE 1 CAPSULE BY MOUTH TWICE A DAY FOR 14 DAYS doxycycline hyclate 100 mg capsule TAKE 1 CAPSULE BY MOUTH TWICE A DAY FOR 14 DAYS No doxycyclin e hyclate 100 mg capsule TAKE 1 CAPSULE BY MOUTH TWICE A DAY FOR 14 DAYS [facility] Magnesium 400 MG Magnesium 400 MG No Magnesium 400 MG furosemide 40 mg tablet TAKE 1 TABLET [...] BY MOUTH EVERY DAY FOR 90 DAYS [facility] loratadine 10 [...] DAY [facility] bupropion HCl XL 150 [...] MORNING [facility] Carvedilol 12.5 MG Carvedilol 12.5 MG No 1{table t_with_ food} BID Carvedilol 12.5 MG carvedilol 12.5 mg tablet TAKE 1 TABLET [...] DAYS [facility] Furosemide 20 MG Furosemide 20 MG No 1{table t} QD Furosemide 20 MG loratadine 10 mg tablet TAKE 1 TABLET [...] 20 UNITS SUBCUTANEO USLY ONCE A DAY [facility] warfarin 10 mg tablet TAKE 1 TABLET BY MOUTH EVERY DAY warfarin 10 mg tablet TAKE 1 TABLET BY MOUTH EVERY DAY No warfarin 10 mg tablet TAKE 1 TABLET BY MOUTH EVERY DAY [facility] Xigduo XR [...] EVERY DAY IN THE MORNING WITH FOOD [facility] allopurinol 100 mg tablet TAKE 2 TABLETS BY MOUTH EVERY DAY allopurinol 100 mg tablet TAKE 2 TABLETS BY MOUTH EVERY DAY No allopurino l 100 mg tablet TAKE 2 TABLETS BY MOUTH EVERY DAY [facility] bupropion HCl XL 150 [...] BY MOUTH EVERY DAY IN THE MORNING [facility] carvedilol 12.5 mg tablet TAKE 1 TABLET BY MOUTH TWICE A DAY WITH FOOD FOR 90 DAYS carvedilol 12.5 mg tablet TAKE 1 TABLET BY MOUTH TWICE A DAY WITH FOOD FOR 90 DAYS No carvedilol 12.5 mg tablet TAKE 1 TABLET BY MOUTH TWICE A DAY WITH FOOD FOR 90 DAYS [facility] carvedilol 6.25 mg tablet TAKE 1 TABLET BY MOUTH TWICE A DAY WITH FOOD FOR 90 DAYS 90 DAYS carvedilol 6.25 mg tablet TAKE 1 TABLET BY MOUTH TWICE A DAY WITH FOOD FOR 90 DAYS 90 DAYS No carvedilol 6.25 mg tablet TAKE 1 TABLET BY MOUTH TWICE A DAY WITH FOOD FOR 90 DAYS 90 DAYS [facility] dexamethaso ne 4 mg tablet TAKE 1 TABLET BY MOUTH THREE TIMES A DAY dexamethaso ne 4 mg tablet TAKE 1 TABLET BY MOUTH THREE TIMES A DAY No dexamethas one 4 mg tablet TAKE 1 TABLET BY MOUTH THREE TIMES A DAY [facility] Dexcom G6 Sensor device USE DIRECTED FOR DIABETES CONTROL Dexcom G6 Sensor device USE DIRECTED FOR DIABETES CONTROL No Dexcom G6 Sensor device USE DIRECTED FOR DIABETES CONTROL [facility] FreeStyle Hima 14 Day Sensor kit USE DIRECTED AND CHANGE SENSOR EVERY 14 DAYS FreeStyle Hima 14 Day Sensor kit USE DIRECTED AND CHANGE SENSOR EVERY 14 DAYS No FreeStyle Hima 14 Day Sensor kit USE DIRECTED AND CHANGE SENSOR EVERY 14 DAYS [facility] Tresiba 100 UNIT/ML Tresiba 100 UNIT/ML No Tresiba 100 UNIT/ML FreeStyle Hima 2 [place]ijer[place] TO BE USED FOR CONTINUOUS GLUCOSE MONITORING FreeStyle Hima 2 [place] TO BE USED FOR CONTINUOUS GLUCOSE MONITORING No FreeStyle Hima 2 [place] TO BE USED FOR CONTINUOUS GLUCOSE MONITORING [facility] furosemide 40 mg tablet TAKE 1 TABLET BY MOUTH EVERY DAY FOR 90 DAYS furosemide 40 mg tablet TAKE 1 TABLET BY MOUTH EVERY DAY FOR 90 DAYS No furosemide 40 mg tablet TAKE 1 TABLET BY MOUTH EVERY DAY FOR 90 DAYS [facility] levothyroxi ne 25 mcg tablet TAKE 1 TABLET BY MOUTH EVERY DAY IN THE MORNING levothyroxi ne 25 mcg tablet TAKE 1 TABLET BY MOUTH EVERY DAY IN THE MORNING No levothyrox ine 25 mcg tablet TAKE 1 TABLET BY MOUTH EVERY DAY IN THE MORNING [facility] lisinopril 20 mg tablet TAKE 1 TABLET BY MOUTH EVERY DAY FOR 90 DAYS lisinopril 20 mg tablet TAKE 1 TABLET BY MOUTH EVERY DAY FOR 90 DAYS No lisinopril 20 mg tablet TAKE 1 TABLET BY MOUTH EVERY DAY FOR 90 DAYS [facility] loratadine 10 mg tablet TAKE 1 TABLET BY MOUTH EVERY DAY loratadine 10 mg tablet TAKE 1 TABLET BY MOUTH EVERY DAY No loratadine 10 mg tablet TAKE 1 TABLET BY MOUTH EVERY DAY [facility] methocarbam ol 750 mg tablet TAKE 1 TABLET BY MOUTH THREE TIMES A DAY methocarbam ol 750 mg tablet TAKE 1 TABLET BY MOUTH THREE TIMES A DAY No methocarba mol 750 mg tablet TAKE 1 TABLET BY MOUTH THREE TIMES A DAY [facility] montelukast 10 mg tablet [...] DAY [facility] Ozempic (0.25 or 0.5 MG/DOSE) 2 MG/1.5ML Ozempic (0.25 or 0.5 MG/DOSE) 2 MG/1.5ML No Ozempic (0.25 or 0.5 MG/DOSE) 2 MG/1.5ML rosuvastati n 10 mg tablet TAKE 1 [...] A DAY WITH FOOD FOR 90 DAYS [facility] dexamethaso ne 4 mg tablet TAKE 1 TABLET BY MOUTH THREE TIMES A DAY dexamethaso ne 4 mg tablet TAKE 1 TABLET BY MOUTH THREE TIMES A DAY No dexamethas one 4 mg tablet TAKE 1 TABLET BY MOUTH THREE TIMES A DAY [facility] diclofenac 1 [...] DAY [facility] traMADol HCl 50 MG traMADol HCl 50 MG No 1{table t_as_ne eded} QD traMADol HCl 50 MG Hibiclens 4 % topical liquid Apply 1 [...] MORNING. [facility] Rosuvastati n Calcium 5 MG Rosuvastati n Calcium 5 MG No 1{table t} QD Rosuvastat in Calcium 5 MG rosuvastati n 10 mg tablet TAKE 1 TABLET BY MOUTH EVERY DAY rosuvastati n 10 mg tablet TAKE 1 TABLET BY MOUTH EVERY DAY No rosuvastat in 10 mg tablet TAKE 1 TABLET BY MOUTH EVERY DAY [facility] tramadol 50 mg tablet TAKE 1 TABLET BY MOUTH EVERY 6 TO 8 HOURS NEEDED tramadol 50 mg tablet TAKE 1 TABLET BY MOUTH EVERY 6 TO 8 HOURS NEEDED No tramadol 50 mg tablet TAKE 1 TABLET BY MOUTH EVERY 6 TO 8 HOURS NEEDED [facility] Tresiba [...] 20 UNITS SUBCUTANEO USLY ONCE A DAY [facility] warfarin 10 mg tablet TAKE 1 TABLET BY MOUTH EVERY DAY FOR 30 DAYS warfarin 10 mg tablet TAKE 1 TABLET BY MOUTH EVERY DAY FOR 30 DAYS No warfarin 10 mg tablet TAKE 1 TABLET BY MOUTH EVERY DAY FOR 30 DAYS [facility] Xigduo XR [...] EVERY DAY IN THE MORNING WITH FOOD [facility] allopurinol 100 mg tablet TAKE 2 TABLETS BY MOUTH EVERY DAY allopurinol 100 mg tablet TAKE 2 TABLETS BY MOUTH EVERY DAY No allopurino l 100 mg tablet TAKE 2 TABLETS BY MOUTH EVERY DAY [facility] bupropion HCl XL 150 [...] BY MOUTH EVERY DAY IN THE MORNING [facility] carvedilol 12.5 mg tablet TAKE 1 TABLET BY MOUTH TWICE A DAY WITH FOOD FOR 90 DAYS carvedilol 12.5 mg tablet TAKE 1 TABLET BY MOUTH TWICE A DAY WITH FOOD FOR 90 DAYS No carvedilol 12.5 mg tablet TAKE 1 TABLET BY MOUTH TWICE A DAY WITH FOOD FOR 90 DAYS [facility] dexamethaso ne 4 mg tablet TAKE 1 TABLET BY MOUTH THREE TIMES A DAY dexamethaso ne 4 mg tablet TAKE 1 TABLET BY MOUTH THREE TIMES A DAY No dexamethas one 4 mg tablet TAKE 1 TABLET BY MOUTH THREE TIMES A DAY [facility] diclofenac 1 % [...] BY MOUTH EVERY DAY IN THE MORNING [facility] lisinopril 20 [...] WEEKLY. [facility] Loratadine 10 MG Loratadine 10 MG No 1{table t} QD Loratadine 10 MG mupirocin 2 % topical ointment APPLY A [...] DAY [facility] Phospha 250 Neutral 155-852-130 MG Phospha 250 [...] 75 [in_i] [facility] height 2022-10-31 09:30:00 74 [in_i] Candelaria delgado [facility] weight 2022-10-31 09:30:00 295 [lb_av] Comm on [facility] temperature 2022-10-31 09:30:00 97.9 [degF] Com [facility] bmi 2022-10-31 09:30:00 37.87 kg/m2 Comm on [facility] oximetry 2022-10-31 09:30:00 97 % Commo n [facility] respiratory rate 2022-10-31 09:30:00 16 /min [facility] blood pressure systolic 2022-10-31 09:30:00 139 mm[Hg] [facility] blood pressure diastolic 2022-10-31 09:30:00 68 mm[Hg] [facility] blood pressure systolic 2022-09-24 11:45:00 129 mm[Hg] [facility] blood pressure diastolic 2022-09-24 11:45:00 76 mm[Hg] [facility] height 2022-09-24 11:45:00 74 [in_i] Commo n [facility] weight 2022-09-24 11:45:00 303 [lb_av] Comm on [facility] temperature 2022-09-24 11:45:00 98.1 [degF] Com [facility] bmi 2022-09-24 11:45:00 38.9 kg/m2 Commo n [facility] oximetry 2022-09-24 11:45:00 99 % Commo n [facility] respiratory rate 2022-09-24 11:45:00 18 /min [facility] Procedures Procedure Date / Time Performed Performing Clinician Source RADEX PELVIS 1/2 VIEWS 2023-08-05 00:00:00 [facility] [id number] 2023-06-23 00:00:00 [facility] [id number] 2023-06-23 00:00:00 [facility] Total Replacement of Right Hip Joint 2023-06-23 00:00:00 [facility] XR, knee, 1 or 2 view 2023-06-09 00:00:00 [facility] RADEX PELVIS 1/2 VIEWS 2023-06-09 00:00:[address] [facility] [address], hip, w/o contrast 2023-06-09 00:00:00 [facility] RADEX PELVIS 1/2 VIEWS 2023-05-26 00:00:00 [facility] ASSIGNMENT OF BENEFITS 2021-05-10 20:36:23 Docto r Unassigned, [place] [facility] XR KNEE 3 VW RIGHT 2021-01-21 17:17:29 Malcolm Garibay [facility] ASSIGNMENT OF BENEFITS 2021-01-21 16:58:20 Docto r Unassigned, [place] [facility] Hip Replacement [facility] Knee Surgery [facility] W[facility] Surgery [facility] Encounters Start Date/Time End Date/Time Encounter Type Admission Type Attending Clinicians Care Facility Care Department Encounter ID Source 2023-06-10 11:00:00 Inpatient Montez Turner HCATO RADI [id number] [facility] 2022-09-24 11:09:[address] [facility] [id number] [facility] 2023-11-14 00:00:00 2023-11-14 00:00:00 Outpatient JUSTIN_Gris Schuster AO [place] [id number] [facility] 2023-11-05 12:55:00 2023-11-05 12:55:00 Outpatient Fausto Mays [facility] [id number] 63 [facility] 2023-10-21 00:00:00 2023-10-21 00:00:00 BRITTANI Noel: [address] [place] [address] , Ph. [phone] [place] [facility] [place] [id number] [facility] 2023-09-09 00:00:00 2023-09-09 00:00:00 Montez Nguyen MD: [address] [place] [address] , Ph. [phone] AOSM [place] [facility] [place] [id number] [facility] 2023-08-07 00:00:00 2023-08-07 00:00:00 Outpatient FOG_Gris Schuster AO AO [id number] [facility] 2023-08-05 00:00:00 2023-08-05 00:00:00 Montez Nguyen MD: [address] [place] [address] , Ph. [phone] [facility] [place] [facility] [place] [id number] [facility] 2023-07-10 00:00:00 2023-07-10 00:00:00 Valeria Morrison PA: [address] [place] [address] , Ph. [phone] [facility] [place] [facility] [place] [id number] [facility] 2023-06-25 12:11:00 2023-06-27 15:53:00 Inpatient EL oMntez Nguyen HCATO SURG [id number] 78 [facility] 2023-06-23 16:13:00 2023-06-23 16:13:00 Outpatient Montez Nguyen HCACL LABO [id number] 59 [facility] 2023-06-18 00:00:00 2023-06-18 00:00:00 Outpatient FOG_Gris Schuster AO AO [id number] [facility] 2023-06-18 00:00:00 2023-06-18 00:00:00 Outpatient FOG_Gris Schuster AOSM AO [id number] [facility] 2023-06-18 00:00:00 2023-06-18 00:00:00 Outpatient FOG_Gris Schuster AOSM AOSM [id number] [facility] 2023-06-18 00:00:00 2023-06-18 00:00:00 Montez Nguyen MD: [address] [place], [place] [address] , Ph. [phone] [facility] [place] [facility] [place] [id number] [facility] 2023-06-16 16:19:00 2023-06-16 16:19:00 Outpatient Montez Turner [facility] [id number] 99 [facility] [place] [facility] 2023-06-16 00:00:00 2023-06-16 00:00:00 Montez Nguyen MD: [address] [place], [place] [address] , Ph. [phone] [facility] [place] [facility] [place] [id number] [facility] 2023-06-09 00:00:00 2023-06-09 00:00:00 Outpatient FOG_Gris Schuster AOSM AO [id number] [facility] 2023-06-09 00:00:00 2023-06-09 00:00:00 Outpatient FOG_Gris Schuster AOSM AO [id number] [facility] 2023-06-09 00:00:00 2023-06-09 00:00:00 Outpatient FOG_Gris Schuster AOSM AOSM [id number] [facility] 2023-06-09 00:00:00 2023-06-09 00:00:00 Montez Nguyen MD: [address] [place], [place] [address] , Ph. [phone] [facility] [place] [facility] [place] [id number] [facility] 2023-06-02 00:00:00 2023-06-02 00:00:00 Outpatient FOG_Burke_R Mariely AOSM AOSM [id number] [facility] 2023-05-26 00:00:00 2023-05-26 00:00:00 Montez Nguyen MD: [address] [place] [address] , Ph. [phone] [facility] [place] [facility] [place] [id number] [facility] 2023-05-19 00:00:00 2023-05-19 00:00:00 Outpatient FOG_Gris Schuster AOSM AOSM [id number] [facility] 2023-05-19 00:00:00 2023-05-19 00:00:00 Outpatient FOG_Gris Schuster AOSM AOSM [id number] [facility] 2023-05-19 00:00:00 2023-05-19 00:00:00 Outpatient FOG_Gris Schuster AOSM AOSM [id number] [facility] 2023-05-18 00:00:00 2023-05-18 00:00:00 Outpatient FOG_Gris Schuster AOSM AOSM [id number] [facility] 2022-10-31 00:00:00 2022-10-31 00:00:00 OFFICE VISIT ESTAB PT LEVEL 3 STLMLC STLMLC [id number] [facility] 2022-09-24 00:00:00 2022-09-24 00:00:00 OFFICE VISIT NEW PT LEVEL 3 STLMLC STLMLC [id number] [facility] 2021-05-10 15:36:43 2021-05-10 15:51:43 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 [id number] [facility] 2021-05-10 00:00:00 2021-05-10 00:00:00 Orders Only Doctor Unassigned, [place] [facility] [id number] [facility] 2021-04-24 10:07:00 2021-04-24 10:07:00 Outpatient Miguel Beltran HCAWU SURG [id number] 63 [facility] 2021-02-01 05:52:00 2021-02-01 05:52:00 Outpatient Montez Turner HCATO DAYS [id number] 97 [facility] 2021-01-21 12:02:03 2021-01-21 23:59:00 [facility] [id number] [facility] 2021-01-21 12:02:03 2021-01-21 23:59:00 Hospital Encounter Lani [facility] [id number] 2021-01-21 00:00:00 2021-01-21 00:00:00 Outpatient Fannie GARIBAY [facility] [id number] [facility] 2021-01-21 00:00:00 2021-01-21 00:00:00 Orders Only Doctor Unassigned, [place] [facility] [id number] [facility] 2021-01-21 00:00:00 2021-01-21 00:00:00 Orders Only Doctor Unassigned, [place] [facility] [id number] [id number] Results Test Description Test Time Test Comments Results Resul t Comments Source - CTA HEART W CN ART/GRAFTS 2023-11-06 00:00:00 [facility] : 1955 Sex: M Name: ABDULAZIZ MARTINEZ [facility] : 1955 Age/S: 68 / M [address] [place] [address] Unit #: [id number] Loc: [place] [address] Phys: Fausto Valenzuela MD Cardiology Acct: [id number] Dis Date: Status: DEP CLI PHONE #: [phone] Exam Date: 11/05/2023 [facility] FAX #: [phone] Reason: EXAMS: CPT CODE: [id number] CTA HEART W CN ART/GRAFTS 05926 Radiation Dose CTDIVOL = 78.52 (mGy): DLP [...] 1 Signed Report (CONTINUED) Name: ABDULAZIZ MARTINEZ [facility] : 1955 Age/S: 68 / M [address] [place] [address] Bl Unit #: [id number] Loc: [place] [address] Phys: Fausto Valenzuela MD Cardiology Acct: [id number] Dis Date: Status: DEP CLI PHONE #: [phone] Exam Date: 11/05/2023 9705 FAX #: [phone] Reason: EXAMS: CPT CODE: [id number] CTA HEART W CN ART/GRAFTS 26853 (Continued) descending artery is patent with no [...] S: 11/06/2023 (611) PAGE 2 Signed Report [id number] 11:38:00* Test Item Value Reference Range Interpretation Comme nts glubed (test code = glubed) 184 mg/dL 60-99 H performing lab: (test code = performing lab:) [facility]- XR PELVIS 08/11 [id number] 09:44:00 [facility] 1955 Sex: M Patient Name: ABDULAZIZ MARTINEZ Unit No: [id number] EXAMS: CPT CODE: [id number] XR PELVIS 1/2 VIEWS 01892 AP view of the pelvis COMMENT: Completed total right hip arthroplasty. Prosthesis appears to be in good position. at 0944 Reported and signed by: Cristino Reyes M.D. CC: Montez Nguyen MD; Valeria PETER Technologist: Ramesh Paige(R) Transcribed D/ (0912) [facility]: ABDUL[facility] MARTINEZ [address] [facility] PHYS: Montez Joaquin MD : 1955 AGE: 68 SEX: M [place] [address] LOC: Y.321 A PHONE #: [phone] EXAM DATE: 06/26/2023 STATUS: ADM IN FAX #: [phone] RAD #: D/C DT PAGE 1 Signed Report Patient Name: ABDULAZIZ MARTINEZ Unit No: [id number] EXAMS: CPT CODE: [id number] XR PELVIS 1/2 VIEWS 75499 (Continued) Orig Print D/T: S: 06/27/2023 (0947) [facility] NAME: ABDULAZIZ MARTINEZ [address] [facility] PHYS: Montez Joaquin MD : 1955 AGE: 68 SEX: M [place] [address] LOC: Y.321 A PHONE #: [phone] EXAM DATE: 06/26/2023 STATUS: ADM IN FAX #: [phone] RAD #: D/C DT PAGE 2 Signed ReportBASIC METABOLIC [id number] 08:18:00* Test Item Value Reference Range Interpretation [...] code = CA) 8.5 mg/dL 8.5-10.1 N [id number] 08:18:00* Test Item Value Reference Range Interpretation Comme nts MAGNESIUM (test code = MAG) 1.9 mg/dL 1.8-2.4 N HGB [id number] 08:13:00* Test Item Value Reference Range Interpretation Comme nts HEMOGLOBIN (test code = HGB) 9.1 g/dL 12-16 L HEMATOCRIT (test code = HCT) 30.2 % 37-47 L [id number] 05:44:00* Test Item Value Reference Range Interpretation Comme nts GLUBED (test code = GLUBED) 111 mg/dL 60-99 H The normal fasti ng blood glucose range for a non-diabeticadult is 60-99 mg/dL. Two hours after meals, normal blood glucose levels should beless than 140 mg/dL.Please note new normal range. [id number] 05:28:00* Test Item Value Reference Range Interpretation Comme nts glubed (test code = glubed) 111 mg/dL 60-99 H performing lab: (test code = performing lab:) [facility] [id number] 20:57:00* Test Item Value Reference Range Interpretation Comme nts GLUBED (test code = GLUBED) 136 mg/dL 60-99 H The normal fasti ng blood glucose range for a non-diabeticadult is 60-99 mg/dL. Two hours after meals, normal blood glucose levels should beless than 140 mg/dL.Please note new normal range. [id number] 20:40:00* Test Item Value Reference Range Interpretation Comme nts glubed (test code = glubed) 136 mg/dL 60-99 H performing lab: (test code = performing lab:) [facility]* Test Item Value Reference Range Interpretation Comme nts GLUBED (test code = GLUBED) 121 mg/dL 60-99 H The normal fasti ng blood glucose range for a non-diabeticadult is 60-99 mg/dL. Two hours after meals, normal blood glucose levels should beless than 140 mg/dL.Please note new normal range. [id number] 16:54:00* Test Item Value Reference Range Interpretation Comme nts glubed (test code = glubed) 121 mg/dL 60-99 H performing lab: (test code = performing lab:) [facility] 11:58:00* Test Item Value Reference Range Interpretation Comme nts GLUBED (test code = GLUBED) 126 mg/dL 60-99 H The normal fasti ng blood glucose range for a non-diabeticadult is 60-99 mg/dL. Two hours after meals, normal blood glucose levels should beless than 140 mg/dL.Please note new normal range. [id number] 11:46:00* Test Item Value Reference Range Interpretation Comme nts glubed (test code = glubed) 126 mg/dL 60-99 H performing lab: (test code = performing lab:) [facility] [id number] 07:08:00* Test Item Value Reference Range Interpretation [...] Patient is on Heparin Drip? NOBASIC METABOLIC [id number] 06:58:00* Test Item Value Reference Range Interpretation [...] CA) 8.0 mg/dL 8.5-10.1 L CBC W/AUTO [id number] 05:56:00* Test Item Value Reference Range Interpretation [...] code = NRBC) 0 % 0-0 N [id number] 05:01:00* Test Item Value Reference Range Interpretation Comme nts GLUBED (test code = GLUBED) 120 mg/dL 60-99 H The normal fasti blood glucose range for a non-diabeticadult is 60-99 mg/dL. Two hours after meals, normal blood glucose levels should beless than 140 mg/dL.Please note new normal range. [id number] 04:45:00* Test Item Value Reference Range Interpretation Comme nts glubed (test code = glubed) 120 mg/dL 60-99 H performing lab: (test code = performing lab:) [facility] 19:57:00* Test Item Value Reference Range Interpretation Comme nts GLUBED (test code = GLUBED) 218 mg/dL 60-99 H The normal fasti ng blood glucose range for a non-diabeticadult is 60-99 mg/dL. Two hours after meals, normal blood glucose levels should beless than 140 mg/dL.Please note new normal range. [id number] 19:45:00* Test Item Value Reference Range Interpretation Comme nts glubed (test code = glubed) 218 mg/dL 60-99 H performing lab: (test code = performing lab:) [facility] 16:42:00* Test Item Value Reference Range Interpretation Comme nts GLUBED (test code = GLUBED) 145 mg/dL 60-99 H The normal fasti ng blood glucose range for a non-diabeticadult is 60-99 mg/dL. Two hours after meals, normal blood glucose levels should beless than 140 mg/dL.Please note new normal range. [id number] 16:30:00* Test Item Value Reference Range Interpretation Comme nts glubed (test code = glubed) 145 mg/dL 60-99 H performing lab: (test code = performing lab:) [facility] 11:38:00* Test Item Value Reference Range Interpretation Comme nts GLUBED (test code = GLUBED) 147 mg/dL 60-99 H The normal fasti ng blood glucose range for a non-diabeticadult is 60-99 mg/dL. Two hours after meals, normal blood glucose levels should beless than 140 mg/dL.Please note new normal range. [id number] 11:27:00* Test Item Value Reference Range Interpretation Comme nts glubed (test code = glubed) 147 mg/dL 60-99 H performing lab: (test code = performing lab:) [facility] [id number] 09:56:00* Test Item Value Reference Range Interpretation [...] = CA) 8.3 mg/dL 8.5-10.1 L PROTHROMBIN [id number] 07:49:00* Test Item Value Reference Range Interpretation [...] code = NRBC) 0 % 0-0 N [id number] 05:13:00* Test Item Value Reference Range Interpretation Comme nts GLUBED (test code = GLUBED) 115 mg/dL 60-99 H The normal fasti blood glucose range for a non-diabeticadult is 60-99 mg/dL. Two hours after meals, normal blood glucose levels should beless than 140 mg/dL.Please note new normal range. [id number] 04:51:00* Test Item Value Reference Range Interpretation Comme nts glubed (test code = glubed) 115 mg/dL 60-99 H performing lab: (test code = performing lab:) [facility]* Test Item Value Reference Range Interpretation Comme nts GLUBED (test code = GLUBED) 149 mg/dL 60-99 H The normal fasti ng blood glucose range for a non-diabeticadult is 60-99 mg/dL. Two hours after meals, normal blood glucose levels should beless than 140 mg/dL.Please note new normal range. [id number] 20:56:00* Test Item Value Reference Range Interpretation Comme nts glubed (test code = glubed) 149 mg/dL 60-99 H performing lab: (test code = performing lab:) [facility] 16:42:00* Test Item Value Reference Range Interpretation Comme nts GLUBED (test code = GLUBED) 125 mg/dL 60-99 H The normal fasti ng blood glucose range for a non-diabeticadult is 60-99 mg/dL. Two hours after meals, normal blood glucose levels should beless than 140 mg/dL.Please note new normal range. [id number] 16:27:00* Test Item Value Reference Range Interpretation Comme nts glubed (test code = glubed) 125 mg/dL 60-99 H performing lab: (test code = performing lab:) [facility] 12:56:00* Test Item Value Reference Range Interpretation Comme nts GLUBED (test code = GLUBED) 126 mg/dL 60-99 H The normal fasti ng blood glucose range for a non-diabeticadult is 60-99 mg/dL. Two hours after meals, normal blood glucose levels should beless than 140 mg/dL.Please note new normal range. [id number] 12:43:00* Test Item Value Reference Range Interpretation Comme nts glubed (test code = glubed) 126 mg/dL 60-99 H performing lab: (test code = performing lab:) [facility]- XR PELVIS 1/2 [id number] 07:10:00 [facility]INE[facility] Ortez PEDRO PABLO : 1955 Sex: M Patient Name: ABDULAZIZ MARTINEZ Unit No: [id number] EXAMS: CPT CODE: [id number] XR PELVIS 1/2 [id number] INTRAOPERATIVE LEG LENGTH FILM COMMENT: COMPARISON: No prior exams available. In progress right hip replacement is noted. AP portable right hip COMMENT: The patient is status post joint replacement which is articulating normally. at 0710 Reported and signed by: Don Walter MD CC: Montez Nguyen MD Technologist: Pranav Dooley R.T. Transcribed D/ (0710) VictoriaL [facility] NAME: ABDULAZIZ MARTINEZ [address] [facility] PHYS: Montez Joaquin MD : 1955 AGE: 68 SEX: M [place], [place] [address] LOC: Y.321 A PHONE #: [phone] EXAM DATE: 06/23/2023 STATUS: ADMIN FAX #: [phone] RAD #: D/C DT PAGE 1 Signed Report Patient Name: ABDULAZIZ MARTINEZ Unit No: [id number] EXAMS: CPT CODE: [id number] XR PELVIS 1/2 VIEWS 61904 (Continued) Orig Print D/T: S: 06/24/2023 (0713) [facility] NAME: ABDULAZIZ MARTINEZ [address] [facility] PHYS: Montez Joaquin MD : 1955 AGE: 68 SEX: M [place], [place] [address] LOC: Y.321 A PHONE #: [phone] EXAM DATE: 06/23/2023 STATUS: ADM IN FAX #: [phone] RAD #: D/C DT PAGE 2 Signed Report- XR PELVIS 1/2 [id number] 07:10:00[facility] : 1955 Sex: M Patient Name: ABDULAZIZ MARTINEZ Unit No: [id number] EXAMS: CPT CODE: [id number] XR PELVIS 1/2 VIEWS 63643 INTRAOPERATIVE LEG LENGTH FILM COMMENT: COMPARISON: No prior exams available. In progress right hip replacement is noted. AP portable right hip COMMENT: The patient is status post joint replacement which is articulating normally. at 0710 Reported and signed by: Don Walter MD CC: Montez Nguyen MD Technologist: ASHLEY MURPHY ARRT Transcribed D/ (0710) VictoriaL [facility] NAME: ABDULAZIZ MARTINEZ [address] [facility] PHYS: Montez Joaquin MD : 1955 AGE: 68 SEX: M [place], [place] [address] LOC: Y.321 A PHONE #: [phone] EXAM DATE: 06/23/2023 STATUS: ADM IN FAX #: [phone] RAD #: D/C DT PAGE 1 Signed Report Patient Name: ABDULAZIZ MARTINEZ Unit No: [id number] EXAMS: CPT CODE: [id number] XR PELVIS 1/2 VIEWS 58625 (Continued) Orig Print D/T: S: 06/24/2023 (0713) [facility] NAME: ABDULAZIZ MARTINEZ [address] [facility] PHYS: Montez Joaquin MD : 1955 AGE: 68 SEX: M [place], [place] [address] LOC: YFrancy A PHONE #: [phone] EXAM DATE: 06/23/2023 STATUS: ADM IN FAX #: [phone] RAD #: D/C DTPAGE 2 Signed ReportPROTHROMBIN [id number] 06:45:00* Test Item Value Reference Range Interpretation [...] IS PATIENT ON ANTICOAGULANTS ? YBASIC METABOLIC [id number] 06:41:00* Test Item Value Reference Range Interpretation [...] mg/dL 8.5-10.1 L SPECIMEN COMMENT: POD #[id number] 05:47:00* Test Item Value Reference Range Interpretation Comme nts HEMOGLOBIN (test code = HGB) 9.7 g/dL 12-16 L HEMATOCRIT (test code = HCT) 31.6 % 37-47 L SPECIMEN COMMENT: POD #[id number] 05:11:00* Test Item Value Reference Range Interpretation Comme nts GLUBED (test code = GLUBED) 127 mg/dL 60-99 H The [facility] range for a non-diabeticadult is 60-99 mg/dL. Two hours after meals, normal blood glucose levels should beless than 140 mg/dL.Please note new normal range. [id number] 04:59:00* Test Item Value Reference Range Interpretation Comme nts glubed (test code = glubed) 127 mg/dL 60-99 H performing lab: (test code = performing lab:) [facility] 2023-06-24 03:45:00* Test Item Value Reference Range Interpretation Comme nts hemoglobin (test code = hemoglobin) 9.7 g/dL 12-16 L hematocrit (test code = hematocrit) 31.6 % 37-47 L performing lab: (test code = performing lab:) [facility] [id number] 03:45:00* Test Item Value Reference Range Interpretation [...] performing lab: (test code = performing lab:) [facility] 20:31:00* Test Item Value Reference Range Interpretation Comme nts GLUBED (test code = GLUBED) 122 mg/dL 60-99 H The normal fasti ng blood glucose range for a non-diabeticadult is 60-99 mg/dL. Two hours after meals, normal blood glucose levels should beless than 140 mg/dL.Please note new normal range. [id number] 20:19:00* Test Item Value Reference Range Interpretation Comme nts glubed (test code = glubed) 122 mg/dL 60-99 H performing lab: (test code = performing lab:) [facility] 17:05:00* Test Item Value Reference Range Interpretation Comme nts GLUBED (test code = GLUBED) 167 mg/dL 60-99 H The normal fasti ng blood glucose range for a non-diabeticadult is 60-99 mg/dL. Two hours after meals, normal blood glucose levels should beless than 140 mg/dL.Please note new normal range. [id number] 16:52:00* Test Item Value Reference Range Interpretation Comme nts glubed (test code = glubed) 167 mg/dL 60-99 H performing lab: (test code = performing lab:) [facility] 13:06:00* Test Item Value Reference Range Interpretation Comme nts GLUBED (test code = GLUBED) 119 mg/dL 60-99 H The normal fasti ng blood glucose range for a non-diabeticadult is 60-99 mg/dL. Two hours after meals, normal blood glucose levels should beless than 140 mg/dL.Please note new normal range. [id number] 12:54:00* Test Item Value Reference Range Interpretation Comme nts glubed (test code = glubed) 119 mg/dL 60-99 H performing lab: (test code = performing lab:) [facility] 10:00:00* Test Item Value Reference Range Interpretation Comme nts GLUBED (test code = GLUBED) 125 mg/dL 60-99 H The normal fasti ng blood glucose range for a non-diabeticadult is 60-99 mg/dL. Two hours after meals, normal blood glucose levels should beless than 140 mg/dL.Please note new normal range. [id number] 09:43:00* Test Item Value Reference Range Interpretation Comme nts glubed (test code = glubed) 125 mg/dL 60-99 H performing lab: (test code = performing lab:) [facility]- CT LOWER EXTRM W/O C [id number] 09:32:00 [facility] : 1955 Sex: M Patient Name: ABDULAZIZ MARTINEZ Unit No: [id number] EXAMS: CPT CODE: [id number] [place] LOWER EXTRM W/[place] [address] [place] OF THE LEFT HIP WITH SAGITTAL [...] with ACR practice standards and adherence to forming operator's recommendations. Degenerative changes are as described. at 0932 Reported and signed by: Don Walter MD CC: Montez Nguyen MD Technologist: PRIYA MINA MRI CTDI: DLP: Trnscrpt: 06/17/2023 (0932) JillianJCL [facility] NAME: ABDULAZIZ MARTINEZ [address] [facility] PHYS: Montez Joaquin MD : 1955 AGE: 68 SEX: M [place], [place] [address] LOC:GeeRAD PHONE #: [phone] EXAM DATE: 06/16/2023 STATUS: DEP CLI FAX #: [phone] RAD #: D/C DTPAGE 1 Signed Report Patient Name: ABDULAZIZ MARTINEZ Unit No: [id number] EXAMS: CPT CODE: [id number] CT LOWER EXTRM W/[place] [address] (Continued) Orig Print D/T: S: 06/17/2023 (0935) [facility]: ABDULAZIZ MARTINEZ [address] [facility] PHYS: Montez Joaquin MD : 1955 AGE: 68 SEX: M [place] [address] LOC: Y.RAD PHONE #: [phone] EXAM DATE: 06/16/2023 STATUS: DEP CLI FAX #: [phone] RAD #: D/C DT PAGE 2 Signed ReportLACTIC [id number] 16:01:00* Test Item Value Reference Range Interpretation Comme nts LACTIC ACID (test code = LACT) 1.4 MMOL/L 0.7-2.1 N PROTHROMBIN [id number] 13:19:00* Test Item Value Reference Range Interpretation [...] recurrent systemic embolism. 3.0 - 4.5 PTT [id number] 13:19:00* Test Item Value Reference Range Interpretation Comme nts PTT ACTIVATED (test code = APTT) 55.4 SECONDS 25.1-36.5 H BASIC METABOLIC [id number] 13:03:00* Test Item Value Reference Range Interpretation [...] code = CA) 8.9 MG/DL 8.4-10.2 N [id number] 13:03:00* Test Item Value Reference Range Interpretation Comme nts MAGNESIUM (test code = MAG) 2.0 MG/DL 1.6-2.3 N CBC W/AUTO [id number] 12:30:00* Test Item Value Reference Range Interpretation [...] K/mm3 0.0-0.1 N COVID 19 Asymptomatic IH [id number] 11:25:00* Test Item Value Reference Range Interpretation [...] code = GLUBED) 192 mg/dL 60-125 H [id number] 07:24:00* Test Item Value Reference Range Interpretation Comme nts GLUBED (test code = GLUBED) 195 mg/dL 60-125 H XR KNEE 3 VW [id number] 21:50:23Mild tricompartment DJD. RL: 5611 END OF [...] meniscal calcification.IMPRESSIONMild tricompartment DJD.RL: 5611END OF [facility] Date/Time Note Provider Source 2023-06-27 08:55:00 [facility] ([facility]) Clinical Note REPORT#:[id number] REPORT STATUS: Signed REPORT INITIALIZATION DATE:06/27/23 TIME: 0855 PATIENT: ABDULAZIZ MARTINEZ UNIT #: [id number] ROOM/BED: Y321-A : [birth year] AGE: 68 SEX: M ATTEND: Montez Nguyen MD ADM AUTHOR: Bony Araya MD REPT SERVICE DT/TIME: 06/27/23 0855 * ALL edits or amendments must be made on the electronic/computer document * Clinical Note Note: [facility] Bony Funez M.D. (cell text [phone]) Assessment/Plan 1.) Anemia of acute blood loss- .Hgb 9.1 (from 8.6), asymptomatic. 2.) POD#4 Right FANY- .acute multi-modal pain control and followup. 3.) Hypertension Metallic Aortic Valve Replacement- .follow BP and hold Rxs if SBP<120. Now on Lovenox bridge (100mg Sq [id number]) along with his usual warfarin 10mg qday. 4.) OsteoArthritis Hyperlipidemia RLS JEANIE- .continue on Rx. CPAP * OK for DISCHARGE per Internal Medicine. Prior Events/Overnight: Uneventful. Chief Complaint: No significant complaints. Objective Vital Signs: [...] in mild discomfort Neck: No Masses, No Thyromegaly- CV: Regular Rate Rhythm / Edema- no significant Resp: Clear To Ascultation / Normal Respiratory Effort ABD: NonTender / NonDistended MS/Skin: No sign of compartment syndrome / +ankle DF/PF Other: thigh soft, dressing clean Labs/X-ray: Laboratory Tests: [...] %) 30.2 L Bony Funez M.D. at [address] [place] [address] #:[id number] END OF REPORT [facility] 2023-06-26 09:52:00 [facility] ([facility]) Clinical Note REPORT#:[id number] REPORT STATUS: Signed REPORT INITIALIZATION DATE:06/26/23 TIME: 951 PATIENT: ABDULAZIZ MARTINEZ UNIT #: [id number] ROOM/BED: [address] : [birth year] AGE: 68 SEX: M ATTEND: Mnotez Nguyen MD ADM AUTHOR: Bony Araya MD REPT SERVICE DT/TIME: 06/26/23951 * ALL edits or amendments must be made on the electronic/computer document * Clinical Note Note: [facility] Bony Funez M.D. (cell text [phone]) Assessment/Plan 1.) Anemia of acute blood loss- .Hgb 8.6 (from 9.0), asymptomatic. INR 1.37 ( from 1.42) 2.) POD#3 Right FANY- .acute multi-modal pain control and followup. 3.) Hypertension Metallic Aortic Valve Replacement- .follow BP and hold Rxs if SBP<120. Now on Lovenox bridge (100mg Sq m3is2tp) along with his usual warfarin 10mg qday. 4.) OsteoArthritis Hyperlipidemia RLS JEANIE- .continue on Rx. CPAP * OK for DISCHARGE per Internal Medicine. Prior Events/Overnight: Uneventful. Chief Complaint: No significant complaints. Objective Vital Signs: [...] in mild discomfort Neck: No Masses, No Thyromegaly- CV: Regular Rate Rhythm / Edema- no significant Resp: Clear To Ascultation / Normal Respiratory Effort ABD: NonTender / NonDistended MS/Skin: No sign of compartment syndrome / +ankle DF/PF Other: Labs/X-ray: Laboratory Tests: 06/26 06/26 06/25 06/25 [...] (Auto) (20 - 40 %) 10.9 L [place] % (Auto) (3 - 10 %) 8.5 Eos % (Auto) (1 - 5 %) 3.5 Baso % (Auto) (0.0 - 1.1 %) 0.6 Neut # (Auto) (2.00 - 7.50 K/mm3) 6.83 Lymph # (Auto) (1.50 - 4.00 K/mm3) 0.98 L [place] # (Auto) (0.2 - 0.8 K/mm3) 0.76 Eos # (Auto) (0.04 - 0.4 K/mm3) 0.31 Baso # (Auto) (0.02 - 0.10 K/mm3) 0.05 Add Manual Diff (MANUAL DIFF) NO Nucleated RBC % (0 - 0 %) 0 Bony Funez M.D. at 1203 RPT #:[id number] END OF REPORT [facility] 2023-06-25 18:40:00 [facility] ([facility]) Clinical Note REPORT#:[id number] REPORT STATUS: Signed REPORT INITIALIZATION DATE:06/25/23 TIME: 1839 PATIENT: ABDULAZIZ MARTINEZ UNIT #: [id number] ROOM/BED: [address] : [birth year] AGE: 68 SEX: M ATTEND: Montez Nguyen MD ADM AUTHOR: Montez Nguyen MD REPT SERVICE DT/TIME: 06/25/23 184 * ALL edits or amendments must be made on the electronic/computer document * Clinical Note Note: continued poor progress with PT incision benign NV intact hopeful d/c in AM at 1841 RPT #:[id number] END OF REPORT [facility] 2023-06-25 09:54:00 [facility] ([facility]) Clinical Note REPORT#:[id number] REPORT STATUS: Signed REPORT INITIALIZATION DATE:06/25/23 TIME: 953 PATIENT: ABDULAZIZ MARTINEZ UNIT #: [id number] ROOM/BED: [address] : [birth year] AGE: 68 SEX: M ATTEND: Montez Nguyen MD ADM AUTHOR: Bony Araya MD REPT SERVICE DT/TIME: 06/25/23 0954 * ALL edits or amendments must be made on the electronic/computer document * Clinical Note Note: [facility] Bony Funez M.D. (cell text [phone]) Assessment/Plan 1.) Anemia of acute blood loss- .Hgb 9.0 (from 9.7), asymptomatic. INR 1.42 ( from 1.38) 2.) POD#2 Right FANY- .acute multi-modal pain control and followup. Discussed with Dr. Nguyen. Will give a total of 80mg of lovenox this AM. Will arrange lovenox bridge 100mg sq q12 for the next 11 doses starting tonight (9am 9pm). 3.) Hypertension Metallic Aortic Valve Replacement- .follow BP and hold Rxs if SBP<120. 4.) OsteoArthritis Hyperlipidemia RLS JEANIE- .continue on Rx. CPAP * OK for DISCHARGE per Internal Medicine. Prior Events/Overnight: Uneventful. Chief Complaint: No significant complaints. Objective Vital Signs: Date Time Temp Pulse Resp B/P B/P Pulse O2 O2 Flow FiO2 Mean Ox Delivery Rate 06/25 0653 98.1 61 17 106/65 78.5 94 Room air 06/25 312 62 96 2 28 06/25 312 96 CPAP 2 28 06/259 98.2 66 16 124/71 88.2 96 06/24 2229 97.7 69 16 116/69 84.4 96 06/24 2200 71 95 2 28 11/15 2155 97 Nasal 2 28 cannula 06/24 1902 97.3 71 18 121/67 85.3 95 06/24 1554 99.1 67 18 105/65 78.2 93 Room air 06/24 1108 98.6 66 18 110/66 80.5 99 Nasal cannula Gen: Alert, oriented, in mild discomfort Neck: No Masses, No Thyromegaly- CV: Regular Rate Rhythm / Edema- no significant Resp: Clear To Ascultation / Normal Respiratory Effort ABD: NonTender / NonDistended MS/Skin: No sign of compartment syndrome / +ankle DF/PF Other: Labs/X-ray: Laboratory Tests: 06/25 06/25 06/24 06/24 [...] (Auto) (20 - 40 %) 15.8 L [place] % (Auto) (3 - 10 %) 9.3 Eos % (Auto) (1 - 5 %) 3.3 Baso % (Auto) (0.0 - 1.1 %) 0.9 Neut # (Auto) (2.00 - 7.50 K/mm3) 5.49 Lymph # (Auto) (1.50 - 4.00 K/mm3) 1.24 L [place] # (Auto) (0.2 - 0.8 K/mm3) 0.73 Eos # (Auto) (0.04 - 0.4 K/mm3) 0.26 Baso # (Auto) (0.02 - 0.10 K/mm3) 0.07 Add Manual Diff (MANUAL DIFF) NO Nucleated RBC % (0 - 0 %) 0 Bony Funez M.D. at 1052 RPT #:[id number] END OF REPORT [facility] 2023-06-24 09:48:00 [facility] ([facility]) Clinical Note REPORT#:[id number] REPORT STATUS: Signed REPORT INITIALIZATION DATE:06/24/23 TIME: 947 PATIENT: ABDULAZIZ MARTINEZ UNIT #: [id number] ROOM/BED: [address] : [birth year] AGE: 68 SEX: M ATTEND: Montez Nguyen MD ADM AUTHOR: Bony Araya MD REPT SERVICE DT/TIME: 06/24/23 0948 * ALL edits or amendments must be made on the electronic/computer document * Clinical Note Note: [facility] Bony Funez M.D. (cell text [phone]) Assessment/Plan 1.) Anemia of acute blood loss- .Hgb 9.7, asymptomatic. INR 1.38 2.) S/p Right FANY- .acute multi-modal pain control and followup. Anticoagulation as per Dr. Nguyen. He has not cleared with PT this AM. 3.) Hypertension Metallic Aortic Valve Replacement- .follow BP and hold Rxs if SBP<120. WIll check with his director safety on a lovenox bridge with his warfarin. 4.) OsteoArthritis Hyperlipidemia RLS JEANIE- .continue on Rx. CPAP I called Dr. Valenzuela's office and was given authorization to place patient on a lovenox bridge. He will have his INR level checked on Thursday. Prior Events/Overnight: Uneventful. Chief Complaint: No significant complaints. Objective Vital Signs: [...] in mild discomfort Neck: No Masses, No Thyromegaly- CV: Regular Rate Rhythm / Edema- no significant Resp: Clear To Ascultation / Normal Respiratory Effort ABD: NonTender / NonDistended MS/Skin: No sign of compartment syndrome / +ankle DF/PF Other: Labs/X-ray: Laboratory Tests: 06/24 06/24 06/23 06/23 [...] L Bony Funez M.D. at 1448 RPT #:[id number] END OF REPORT [facility] 2023-06-24 08:10:00 [facility] ([facility]) Discharge Summary REPORT#:[id number] REPORT STATUS: Signed REPORT INITIALIZATION DATE:06/24/23 TIME: 809 PATIENT: ABDULAZIZ MARTINEZ UNIT #: [id number] [facility] AGE: 68 SEX: M ATTEND: Montez Nguyen MD ADM AUTHOR: Valeria Morrison REPT SERVICE DT/TIME: 06/24/23 0810 * ALL edits or amendments must be made on the electronic/computer document * General Information Date of admission: Observation Start Date: 06/23/23 Date of admission: 06/23/23 Discharge date: 06/24/23 Admission diagnosis: Right hip osteoarthritis Discharge diagnosis: same Hospital course: The patient underwent the procedure without incident. Findings were significant for degenerative disease of the hip. The patient [...] was encouraged to improve the patient s [employer] [facility]. Consultants: internal medicine Pt. condition on discharge: stable Allergies: Allergies: No Known Allergies (Coded, 02/01/21) Med Rec Med Rec Discharge meds: Stop taking the following medications: METHOCARBAMOL (ROBAXIN) 750 MG TAB 750 MILLIGRAM ORAL THREE TIMES A DAY. Continue taking these medications: WARFARIN (COUMADIN) 1 MG TAB 10 MILLIGRAM ORAL [...] TOE PAIN / GOUT FLARE UP Treatments Procedures Treatments Procedures: Procedure: Right total hip arthroplasty Lab: Chemistry last 24 hrs: 06/24 345 Chemistry Sodium [...] 15.6 H INR (<2.0) 1.38 Discharge Instructions PCP PCP: PCP: Montez Nguyen MD )( Discharge to: Home/Self Care Discharge Instructions Additional Discharge Routines: Attending Follow-Up, Wound/Dressing Care )( Diet: Resume Home Diet/Feeds )( Weight monitoring: Not Required )( Activity: As Tolerated )( Wound/dressing care: Do not submerge incision, Leave dressing in place, OK to shower tomorrow Prescriptions: e-prescribe Rx drug database reviewed: yes Follow-up Appointments Attending Physician: Attending Physician: Montez Nguyen MD Attending physician follow up timeframe: In 1-2 weeks at 0812 at 0558 RPT #:[id number] END OF REPORT [facility] 2023-06-23 16:42:00 [facility] ([facility]) Clinical Note REPORT#:[id number] REPORT STATUS: Signed REPORT INITIALIZATION DATE:06/23/23 TIME: 1641 PATIENT: ABDULAZIZ MARTINEZ UNIT #: [id number] [facility] AGE: 68 SEX: M ATTEND: Montez Nguyen MD ADM AUTHOR: Bony Araya MD REPT SERVICE DT/TIME: 06/23/23 0984 * ALL edits or amendments must be made on the electronic/computer document * Clinical Note Note: [facility] Bony Funez MD (cell text [phone]) Internal Medicine Consult at request of : Dr. Montez Nguyen Chief Complaint: right hip pain HPI: 68 yo M is now s/p Right Total Hip Arthroplasty(FANY) by Dr. Nguyen. Mr. Goldman relates years of progressive right hip pain (recently severe, 03/19), worse with activity, and with restricted motion at times in quality. He has failed conservative management. Comorbidities: see below. PmHx: . Osteoarthritis, hypertension, hypercholesteremia, gout, type 2 diabetes mellitus, restless leg syndrome(RLS), vertigo, CHF, pulmonary embolism, sleep apnea- uses CPAP, obesity BMI 36.3 EF- 65%, ALLERGY: Allergies: No Known Allergies (Coded, 02/01/21) Home Medications: Home Medications: WARFARIN (COUMADIN) 10 MG PO DAILY ALLOPURINOL (ZYLOPRIM) [...] Tob: none FHx: .No significant hx of DVT/PE. Alcohol: none Drugs: none Lives: with spouse . . Vitals: Vital Signs: Date Time Temp Pulse Resp [...] 98 Room air Gen: Alert, in mild discomfort. EYE: Nl lids conjunctiva. ENT: Nl ears Nose, nl lips,. Neck: Supple, nl thyroid, No masses. CV: Regular Rate Rhythm, no heave or significant murmur. Edema- none RESP: Clear to Auscultation, normal Respiratory effort. ABD: Soft, NonDistended,. LYM: No significant cervical Lymphadenopathy. MS: No sign of compartment syndrome, hip dressing is dry and intact. Drain. NEURO: Nonfocal, grossly normal sensation of LE, +Ankle DF/PF . . Preop Labs(05/26/23): CBC:. Hgb 12.1 Cgw117 , CHEM: Na 144 , K 4.8, Cr0.89 (Egfr95 %), . Ekg: Sinus rhythm . (medium to high risk of complications or morbidity) (major surgery) (IV sedative, meds) . Assessment Plan 1.) Anemia of Acute Blood Loss- .will recheck tomorrow. 2.) S/p Right FANY- .acute multi-modal pain control and followup. Anticoagulation as per Dr. Nguyen 3.) Hypertension Metallic Aortic Valve Replacement- .follow BP and hold Rxs if SBP<120. WIll check with his director safety on a lovenox bridge with his warfarin. 4.) OsteoArthritis Hyperlipidemia RLS JEANIE- .continue on Rx. CPAP . Bony Funez M.D. Thanks! . . . . . G8417 BMI documented as above normal parameters and a f/u plan is documented G9903 - Patient screened for tobacco use AND identified as a tobacco non-user 1123F - ACP discussion - default code status while at [facility]. at 2106 RPT #:[id number] END OF REPORT [facility] 2023-06-23 12:34:00 [id number] [facility] [address] [place] [address] PATIENT NAME: ABDULAZIZ MARTINEZ ADMIT DATE: 06/23/23 ACCOUNT NO: [id number] [facility] 68 REPORT TYPE: OPERATIVE REPORT SEX: M ADMITTING PHYSICIAN:Montez Nguyen MD ATTENDING PHYSICIAN:Montez Nguyen MD OPERATION DATE: 06/23/2023 PREOPERATIVE DIAGNOSIS: Right hip osteoarthropathy. POSTOPERATIVE DIAGNOSIS: Right hip osteoarthropathy, M16.11. OPERATIVE PROCEDURES PERFORMED: 1. Computer-assisted imageless right total hip arthroplasty, 07692. 2. 99911. IMPLANTS UTILIZED: DePuy total hip system, size 56 mm Gription acetabular shell, +4 neutral polyethylene liner, size 8 high offset ACTIS femoral stem, 36 mm ceramic head, +1.5 neck. Both the acetabular and femoral components were press-fit. ANESTHESIA: General. ESTIMATED BLOOD LOSS: Less than 30 mL. SURGEON: Montez Nguyen M.D. FELT COVERER: BRITTANI Morrison. OPERATIVE FINDINGS: As above. SURGICAL SPECIMENS SENT: None. CLINICAL INDICATIONS: Ms. Martinez is a 68-year-old male from [place], [place], who has been having severe and progressive pain in his right hip for the past 10 years. The pain is quite disabling in nature. He is currently using a walker for ambulation. His pain is not abated despite extensive nonoperative treatment. Due to his progressive disability and lack of response to nonoperative intervention, he is admitted for computer-assisted imageless right total hip arthroplasty. OPERATIVE NARRATIVE: 1. COMPUTER-ASSISTED IMAGELESS RIGHT TOTAL HIP ARTHROPLASTY, 90155. 2. 50114. Mr. Martinez was brought into the operative suite. At which time, he was placed in supine position on the OR table. Routine monitors [...] Anterolateral Hardinge approach was performed. Iliotibial band divided in line with the skin incision. The abductors [...] placed and the hip was reduced. Clinically, amish of leg length and offset was achieved. Clinically, no impingement was seen. Appropriate soft tissue tensioning was noted. Intraoperative x-rays confirmed amish of leg length and offset with appropriate [...] closed in a watertight fashion with a [id number] #5 Ethibond suture. Skin closure was performed [...] Morrison was invaluable in positioning the patient along with preparation and draping of the extremity. She [...] By: Montez Nguyen MD Date Dictated: 06/23/2023 12:34:03 Date Transcribed: 06/23/2023 13:57:35 RLB/ALICE/NIKITA PATIENT NAME: ABDULAZIZ MARTINEZ Receipt ID: [id number] Authenticated by Montez Nguyen MD On 06/24/2023 07:38:18 AM at 0738 PATIENT NAME: ABDULAZIZ MARTINEZ [facility] 2023-06-23 06:29:00 [facility] ([facility]) Brief Op Note REPORT#:[id number] REPORT STATUS: Signed REPORT INITIALIZATION DATE:06/23/23 TIME: 628 PATIENT: ABDULAZIZ MARTINEZ UNIT #: [id number] ROOM/BED: Y.998-10 : 57 AGE: 68 SEX: M ATTEND: Montez Nguyen MD ADM AUTHOR: Valeria Morrison REPT SERVICE DT/TIME: 11/14/23 0629 * ALL edits or amendments must be made on the electronic/computer document * Op/Inv Proc Note - Brief Pre-procedure diagnosis: Right hip osteoarthritis Post-procedure diagnosis: same as pre procedure dx Procedures performed: Right total hip arthroplasty Primary Surgeon: Patrick Clinical Assessment Manager(s): Prince KHAN Findings: as above Complications: none Estimated blood loss in ml's: 25cc Specimens removed/altered: none at 0630 at 0942 [facility] #:[id number] END OF REPORT [facility]23-[facility] 05:47:00 [id number] [place] [address] PATIENT NAME: ABDULAZIZ MARTINEZ ADMIT DATE: ACCOUNT NO: [id number] ROOM NO: AGE: 68 REPORT TYPE: HISTORY [...] his severe disability and lack of response to nonoperative treatment, he is admitted for computer-assisted imageless [...] and Coumadin. REVIEW OF SYSTEMS: Negative. PHYSICAL EXAMINATION: VITAL SIGNS: 6 feet 2 inches tall and weight 129.5 kg. HEENT: Within normal limits. CARDIAC: Regular rate and rhythm. No murmur. CHEST: Clear. ABDOMEN: Benign. BACK: No CVA tenderness. EXTREMITIES: Leg lengths are equal. He has limited and painful rotation of the right hip. His distal neurovascular status is intact. IMAGING: Radiographic evaluation reveals severe osteoarthritis of both hips. ASSESSMENT: Right hip pain secondary to severe osteoarthritis. PATIENT NAME: ABDULAZIZ MARTINEZ SURGICAL PLAN: Computer-assisted imageless right total hip arthroplasty. I have gone over at length with Mr. Martinez the associated risks involved with this procedure. He understands that these risks include but are not limited to bleeding, infection, neurovascular damage, leg length inequality, dislocation of the prosthesis, loosening of the prosthesis requiring possible revision, painful scar, persistent limp, deep vein thrombi leading to [...] By: Montez Nguyen MD Date Dictated: 06/19/2023 05:47:08 Date Transcribed: 06/19/2023 06:44:33 WES/TREVOR Receipt ID: [id number] Authenticated by Montez Nguyen MD On 06/19/2023 08:21:04 AM at 0821 PATIENT NAME: ABDULAZIZ MARTINEZ [facility] 2021-04-26 09:00:00 [id number] [place] [address] PATIENT NAME: ABDULAZIZ MARTINEZ ADMIT DATE: 04/24/21 ACCOUNT NO: [id number] ROOM NO: AGE: 65 REPORT TYPE: eTRANSESOPHAGEAL ECHO SEX: M ADMITTING PHYSICIAN: ATTENDING PHYSICIAN:Miguel Srinivasan MD *[facility]* [address] [place] [address] Transesophageal Echocardiogram Patient: Abdulaziz Martinez Study Date: 04/24/2021 BP: Location: [facility] URN: [id number] : 1955 Age: 65 Height: / Gender: M Weight: / BMI/BSA: / *Ordering Physician: * Miguel Srinivasan MD *Interpreting Physician: * Miguel Srinivasan MD *Puppet Developer: Nicky Barrios [facility], [facility] Indications: Endocarditis at outside facility. Study data: Consent: The risks, benefits, and alternatives to the procedure were explained to the patient and informed consent was obtained. Procedure: Initial setup: The patient was brought to the laboratory in the fasting state.Intravenous access was obtained. Surface ECG leads and pulse oximetric signals were monitored. Sedation. Moderate sedation was administered by cardiology staff. Transesophageal echocardiography was performed. Topical anesthesia was obtained using viscous lidocaine. A transesophageal probe (SN: [id number]) was inserted by the attending director safety without difficulty. Images were obtained using a [employer] cardiac ultrasound machine. Image quality was good. 2D, spectral Doppler, and color Doppler. Location: Echo laboratory. Patient status: Outpatient. Patient room number: CH 1. Study status: Routine. Study completion: The patient tolerated the procedure well. There were no complications. Findings PATIENT NAME: ABDULAZIZ MARTINEZ [id number] [place] [address] PATIENT NAME: ABDULAZIZ MARTINEZ ADMIT DATE: 04/24/21 ACCOUNT NO: [id number] ROOM NO: AGE: 65 REPORT TYPE: eTRANSESOPHAGEAL ECHO SEX: M ADMITTING PHYSICIAN: ATTENDING PHYSICIAN:Miguel Srinivasan MD Left ventricle: The cavity size is normal. The estimated ejection fraction is 55-60%, by visual assessment. Doppler parameters are consistent with abnormal left ventricular relaxation (grade 1 diastolic dysfunction). Right ventricle: The cavity size is normal. Systolic function is normal. Ventricular septum: The ventricular septum is normal. Left atrium: The atrium is normal in size. There is no evidence of a thrombus in the atrial cavity or appendage. Right atrium: The atrium is normal in size. Atrial septum: No defect or patent foramen ovale is identified. Aorta: The aorta is normal. Minimal plaque noted. Aortic valve: There is a normal functioning mechanical valve. There is no evidence of a vegetation. There is no evidence of stenosis. There is no regurgitation. Mitral valve: The leaflets are normal thickness. There is no evidence of a valvular mass. Possible redundant cord versus torn cord. There is mild regurgitation. Tricuspid valve: The valve is structurally normal. There is no evidence of a vegetation. There is no regurgitation. Pulmonic valve: Not well visualized. There is no regurgitation. Conclusions Summary: 1. Left ventricle: The cavity size is normal. The estimated ejection fraction is 55-60%, by visual assessment. Doppler parameters are consistent with abnormal left ventricular relaxation (grade 1 diastolic dysfunction). 2. Left atrium: There is no evidence of a thrombus in the atrial cavity or appendage. 3. Atrial septum: No defect or patent foramen ovale is identified. 4. Aortic valve: There is a normal functioning mechanical valve. There is no evidence of a vegetation. 5. Mitral valve: There is no evidence of a valvular mass. Possible redundant cord versus torn cord. 6. Tricuspid valve: There is no evidence of a vegetation. Prepared and electronically signed by PATIENT NAME: ABDULAZIZ MARTINEZ [id number] [address] PATIENT NAME: ABDULAZIZ MARTINEZ ADMIT DATE: 04/24/21 ACCOUNT NO: [id number] ROOM NO: AGE: 65 REPORT TYPE: eTRANSESOPHAGEAL ECHO SEX: M ADMITTING PHYSICIAN: ATTENDING PHYSICIAN:Miguel Srinivasan MD, Gregory MD 04/26/2021 09:00 at 0900 PATIENT NAME: ABDULAZIZ MARTINEZ [facility] 2021-04-24 12:18:00 [id number] [address] PATIENT NAME: ABDULAZIZ MARTINEZ ADMIT DATE: 04/24/21 ACCOUNT NO: [id number] ROOM NO: AGE: 65 REPORT TYPE: ELECTROCARDIOGRAM SEX: M ADMITTING PHYSICIAN: ATTENDING PHYSICIAN:Miguel Srinivasan MD Order: [id number] Test Reason : PRE CATHLAB PROCEDURE Test Date/Time Stamp: ThuApr 24 2021 12:18:32 Blood Pressure : / mmHG Vent. Rate : 069 BPM Atrial Rate : 069 BPM P-R Int : 176 ms QRS Dur : 138 ms QT Int : 460 ms P-R-T Axes : 045 039 044 degrees QTc Int : 492 ms Normal sinus rhythm Right bundle branch block Abnormal ECG No previous ECGs available Confirmed by FAUSTO VALENZUELA ([id number]) on 04/24/2021 4:55:26 PM Referred By: Self Referred Confirmed by:FAUSTO VALENZUELA at 1655 PATIENT NAME: ABDULAZIZ MARTINEZ [facility] 2021-02-01 08:22:00 [id number] [place], [place] [address] PATIENT NAME: ABDULAZIZ MARTINEZ ADMIT DATE: 02/01/21 ACCOUNT NO: [id number] ROOM NO: AGE: 65 REPORT TYPE: OPERATIVE REPORT SEX: M ADMITTING PHYSICIAN: ATTENDING PHYSICIAN:Montez Nguyen MD OPERATION DATE: 02/01/2021 PREOPERATIVE DIAGNOSIS: Right knee meniscal tearing. POSTOPERATIVE DIAGNOSES: 1. Complex tear, posterior horn, medial meniscus, right knee, S83.241A. 2. Complex tear involving the anterior horn, body and posterior horn lateral meniscus, right knee, S83.281A. 3. A 5 mm loose body popliteal recess, right knee, M23.41. OPERATIVE PROCEDURES PERFORMED: 1. Right knee diagnostic arthroscopy and arthroscopic partial medial and lateral meniscectomy, 50055. 2. Arthroscopic loose body removal, 69246. ANESTHESIA: General. TOURNIQUET TIME: 18 minutes. ESTIMATED BLOOD LOSS: None. SURGEON: Montez Nguyen M.D. INSTRUCTOR TRAFFIC SAFETY: BRITTANI Faust INDICATIONS: Mr. Martinez is a 65-year-old male from [place], [place], who sustained a traumatic injury to his right knee after suffering a recent fall. His clinical as well as radiographic evaluation demonstrate symptomatic tearing involving the medial and lateral menisci with an incarcerated fragment. He was admitted for arthroscopic meniscectomy. OPERATIVE NARRATIVE: 1. RIGHT KNEE DIAGNOSTIC ARTHROSCOPY WITH AN ARTHROSCOPIC PARTIAL MEDIAL AND LATERAL MENISCECTOMY, 54588. 1. ARTHROSCOPIC LOOSE BODY REMOVAL, 68065. Mr. Martinez was brought to the operative suite where he was placed in supine position on the OR table. Routine monitors were established. General anesthesia was delivered. After satisfactory induction of general anesthesia, a tourniquet was applied to the patient's right lower extremity per Mr. Pollardong and the leg was placed in arthroscopic leg boston per Mr. Rodriguez. The leg was then elevated, exsanguinated and tourniquet insufflated to 300 mmHg. The right PATIENT NAME: ABDULAZIZ MARTINEZ knee was circumferentially prepped and draped in the usual sterile fashion per Mr. Pollardong. The anterolateral arthroscopic portal was established. The patient was noted to have a posttraumatic hematoma involving the suprapatellar pouch. A 1 cm transverse incision was made directly in line with the distal quadriceps tendon and a prominent hematoma was evacuated. The arthroscope was then introduced in the joint. Systematic arthroscopic evaluation performed. Patellofemoral evaluation revealed grade IV changes involving the trochlea. No unstable cartilage was present. Medial and lateral facets of the patella were unremarkable. Medial gutter was unremarkable. Medial compartment revealed a complex tear involving the posterior horn of the medial meniscus resected in a stable configuration. Gouty crystal deposition was present throughout the knee, a grade III chondral flap was noted above the medial femoral condyle and this was excised. The tibial articular surface was unremarkable. Femoral notch with an intact anterior as well as posterior cruciate ligament. The lateral compartment revealed a complex tear involving the anterior horn, body and posterior horn of the lateral meniscus with significant gouty deposition. Excision of all pathologic tissue was performed, grade II chondral pathology of the lateral femoral condyle, debridement was performed of any unstable articular cartilage. A 5 mm loose body was noted in the popliteal recess and this was removed. Thorough lavage was then performed with lactated Ringer solution. Arthroscopic portals were closed respectively with a 4-0 nylon suture per Mr. Rodriguez. The transverse incision was closed in a similar fashion per Mr. Rodriguez. A sterile dressing was then applied per Mr. Rodriguez and the patient was then extubated to the recovery room, awake and alert without any anesthetic or operative complications. At the end of the case, sponge and needle counts were correct x2. During the procedure, Mr. Rodriguez was invaluable in positioning the patient along with preparation and draping of the extremity. He was also responsible for allowing surgical exposure throughout the procedure in addition to closure of the postoperative incisions and application of postoperative dressing. Dictated By: Montez Nguyen MD WT: OP:ANKUSH/JOAQUIM/ANURADHA Conf#: [id number]/DID#: [id number] Authenticated by Montez Nguyen MD On 02/01/2021 03:53:15 PM at 1553 PATIENT NAME: ABDULAZIZ MARTINEZ [facility] 2021-02-01 07:43:00 [facility] ([facility] Brief Op Note REPORT#:[id number] REPORT STATUS: Signed DATE:02/01/21 TIME: 0743 PATIENT: ABDULAZIZ MARTINEZ UNIT #: [id number] ROOM/BED: : 57 AGE: 65 SEX: M ATTEND: Montez Nguyen MD ADM AUTHOR: Montez Nguyen MD * ALL edits or amendments must be made on the electronic/computer document * Op/Inv Proc Note - Brief Pre-procedure diagnosis: Right knee meniscus tear Loose bodies Post-procedure diagnosis: same as pre procedure dx Procedures performed: Right knee diagnostic arthroscopy with partial medial and lateral meniscectomy 83984 Removal of loose bodies 97716 Primary Surgeon: Patrick Clinical Assessment Manager(s): Michael PETER Findings: as above Complications: none Estimated blood loss in ml's: none Specimens removed/altered: none at 0820 RPT #:[id number] END OF REPORT [facility] 2021-01-31 15:51:00 [id number] [place] [address] PATIENT NAME: ABDULAZIZ MARTINEZ ADMIT DATE: 02/01/21 ACCOUNT NO: [id number] ROOM NO: AGE: 65 REPORT TYPE: HISTORY AND PHYSICAL SEX: M ADMITTING PHYSICIAN: ATTENDING PHYSICIAN:Montez Nguyen MD ADMISSION DATE: 02/01/2021 ADMITTING DIAGNOSIS: Right knee incarcerated tear of the lateral meniscus with an ongoing medial meniscal tear in addition to chondromalacia. HISTORY OF PRESENT ILLNESS: Mr. Martinez is a 65-year-old male who sustained a traumatic injury to his right knee after a recent fall. As a result of the fall, he has sustained an incarcerated tear of the lateral meniscus along with an ongoing tear of the medial meniscus. He has moderate chondromalacia noted in addition. Due to his significant disability due to the incarcerated meniscal tear and lack of response to nonoperative intervention, he is admitted for arthroscopic meniscectomy. PAST MEDICAL HISTORY: Chronic back pain, congestive heart failure, diabetes, hypertension, migraine headaches, renal stones, hypercholesterolemia, irregular heartbeat, hiatal hernia, osteoarthritis, pulmonary emboli and sleep apnea. PAST SURGICAL HISTORY: Include abdominal procedure, fracture repair, cholecystectomy, aortic valve replacement. FAMILY HISTORY: Emphysema as well as ALS in his mother. SOCIAL HISTORY: He is . 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 MEDICATIONS: Consist of Coumadin as well as an antihypertensive. In addition to the Coumadin, he also takes duloxetine, lisinopril, pantoprazole, loratadine, allopurinol, carvedilol, montelukast, Lasix, rosuvastatin, metformin as well as trazodone. ALLERGIES: NO ALLERGIES ARE LISTED. REVIEW OF SYSTEMS: Negative. PHYSICAL EXAMINATION: VITAL SIGNS: He is 6 feet 3 inches tall, 143 kg. HEENT: Within normal limits. CARDIAC: Regular rate and rhythm. No murmur. CHEST: Clear. ABDOMEN: Benign. BACK: No CVA tenderness. PERTINENT ORTHOPEDIC EVALUATION: Leg lengths are equal. Full painless motion of both hips. Examination of the right knee reveals a positive effusion. He PATIENT NAME: ABDULAZIZ MARTINEZ has 20 to 80 degrees of motion. He has severe pain along both the medial and lateral joint lines. No instability is present. His distal neurovascular status is intact. DIAGNOSTIC DATA: Radiographic evaluation reveals no significant arthritic change. MRI evaluation revealed incarcerated tear of the lateral meniscus along with an ongoing medial meniscal tear. ASSESSMENT: Symptomatic meniscal tearing, right knee. SURGICAL PLAN: Arthroscopic meniscectomy with potential chondroplasty. I have gone over at length with Mr. Martinez the associated risks involved with this procedure. He understands that these risks include but are not limited to bleeding, infection, neurovascular damage, persistent pain, loss of motion, posttraumatic arthritis, recurrent tear, need for further operative intervention, deep vein thrombi leading to pulmonary emboli along with complications secondary to anesthesia. He further understands that there are no guarantees or warranties that he will be pain free as a result of the procedure. Mr. Martinez accepts these risks and gives his informed consent to proceed. Dictated By: Montez Nguyen MD WT: HP:ANKUSH/JOAQUIM/ANURADHA Conf#: [id number]/DID#: [id number] Authenticated by Montez Nguyen MD On 02/01/2021 03:53:11 PM at 1553 PATIENT NAME: ABDULAZIZ MATRINEZ [facility]
[2024-04-07] MEDS ORDERED: SOTALOL HCL 80 MG TAB ONE ×2 (18:37→19:33)
[2024-04-07] MEDS ORDERED: MAGNESIUM SULFATE 1 gm IVPB 1 GM/100 ML BAG IV ONE (18:37)
[2024-04-07 18:41] LABS: Absolute Basophils 0.1 K/uL (0-0.5); Absolute Eosinophils 0.4 K/uL (0-0.5); Absolute Lymphocytes (CBC) 1.4 K/uL (0.7-4.9); Absolute Monocytes 0.7 K/uL (0.1-1.3); Absolute Neutrophil 10.6 K/uL (1.8-8.0); Basophils % 0.7 % (0-1.3); Eosinophils % 3.3 % (0-4.4); Hematocrit 35.3 % (39.6-49.0); Hemoglobin 11.1 g/dL (13.6-17.9); Lymphocytes % 10.4 % (15.3-44.8); MCH 25.8 pg (27.0-35.0); MCHC 31.5 g/dL (32.0-36.0); MPV 7.8 fL (7.6-11.3); Monocytes % 5.3 % (3.3-12.3); Neutrophils % 80.3 % (41.7-73.7); Nucleated Red Blood Cells % 0.1 % (0-0); Platelets 394 thou/uL (152-406); RBC Red Blood Cell Count 4.31 M/uL (4.33-5.43); Red Cell Distribution Width 17.2 % (12.1-15.2)
[2024-04-07 18:46] LABS: PT Prothrombin Time 26.2 SECONDS (9.4-12.5); Protime INR 2.4
[2024-04-07 19:05] LABS: ALT/SGPT 19 U/L (16-61); Albumin/Globulin Ratio 0.7 (1.1-1.8); Alkaline Phosphatase 72 U/L (45-117); Anion Gap 7.7 mEq/L (5.0-15.0); BUN Blood Urea Nitrogen 30 mg/dL (7-18); Bicarbonate 27 mEq/L (21-32); Bilirubin Total 0.3 mg/dL (0.2-1.0); Globulin 4.2 g/dL (2.3-3.5); Glomerular Filtration Rate 57 ml/min (=/>90); Glucose Level 150 mg/dL (74-106); Magnesium 2.2 mg/dL (1.6-2.4); NT PRO-BNP 1845 pg/mL (<125); Potassium 4.7 mEq/L (3.5-5.1); Protein, Total 7.2 g/dL (6.4-8.2); Sodium Level 139 mEq/L (136-145); Troponin High Sensitivity 31.4 pg/mL (<58.9)
--- NOTE | 2024-04-07 19:06 | RAD REPORT ---
EXAM DESCRIPTION: Long Single View04/07/2024 6:55 pm CLINICAL HISTORY: Palpitations COMPARISON: December 2023 FINDINGS: The lungs appear clear of acute infiltrate. The heart is mildly enlarged. Postsurgical changes involve the chest IMPRESSION: No acute abnormalities displayed
[2024-04-07 19:08] LABS: AST/SGOT < 10 U/L (15-37); Bilirubin Direct < 0.2 mg/dL (0-0.2); Bilirubin Indirect, Calculated 0.1 mg/dL (0.2-0.8)
[2024-04-07] MEDS ORDERED: AMIODARONE HCL 150 MG/3 ML INJ IV ONE (20:28)
[2024-04-07] MEDS ORDERED: AMIODARONE IN DEXTROSE,ISO-OSM 360 MG/200 ML BAG IV ONE (20:28)
[2024-04-07] MEDS ORDERED: D5W 100 ML IV ONE (20:28)
[2024-04-07] MEDS ORDERED: ALBUMIN HUMAN 25% 200 ML IV ONE (22:05)
[2024-04-07] MEDS ORDERED: METOPROLOL TARTRATE 5 MG/5 ML INJ IV ONE (22:05)
[2024-04-08] MEDS ORDERED: dilTIAZem HCL 25 MG/5 ML VIAL IV ONE (00:09)
[2024-04-08] MEDS ORDERED: NA CHLORIDE 0.9% 100 ML ONE (00:09)
--- NOTE | 2024-04-08 00:35 | ER ---
Nurse's Notes [facility] Name: Gregg Martinez Age: 68 yrs Sex: Male : 1955 Arrival Date: 04/07/2024 Time: 17:50 Bed 6 Private MD: Kenny Rios V Diagnosis: Tachycardia, unspecified;Hypotension, unspecified Presentation: 04/07 18:00 Chief complaint: Patient states: I was feeling my heart race and I took my HR and BP. tm6 My heart rate is fast. Dr. Rios said I might be in afib RVR. Coronavirus screen: Vaccine status: Patient reports receiving the 2nd dose of the covid vaccine. Ebola Screen: Patient negative for fever greater than or equal to 101.5 degrees Fahrenheit, and additional compatible Ebola Virus Disease symptoms Patient denies exposure to infectious person. Patient denies travel to an Ebola-affected area in the 21 days before illness onset. No symptoms or risks identified at this time. Initial Sepsis Screen: Does the patient meet any 2 criteria? HR > 90 bpm. Does the patient have a suspected source of infection? No. Patient's initial sepsis screen is negative. Risk Assessment: Do you want to hurt yourself or someone else? Patient reports no desire to harm self or others. Onset of symptoms was April 07, 2024. 18:00 Method Of Arrival: Wheelchair tm6 18:00 Acuity: FAHEEM 2 ss Triage Assessment: 18:00 General: Appears in no apparent distress. Behavior is calm, cooperative. Pain: Denies tm6 pain. EENT: No signs and/or symptoms were reported regarding the EENT system. Neuro: Level of Consciousness is awake, alert, obeys commands, Oriented to person, place, time, situation. Cardiovascular: Reports palpitations, Patient's skin is warm and dry. Respiratory: Airway is patent Respiratory effort is even, unlabored, Respiratory pattern is regular, symmetrical. GI: No signs and/or symptoms were reported involving the gastrointestinal system. Abdomen is round. : No signs and/or symptoms were reported regarding the genitourinary system. Derm: No signs and/or symptoms reported regarding the dermatologic system. Musculoskeletal: No signs and/or symptoms reported regarding the musculoskeletal system. Historical: - Allergies: 17:56 No Known Allergies; tm6 - PMHx: 17:56 Chronic pain; diabetes mellitus; Gout; Hypercholesterolemia; Hypertensive disorder; tm6 Hypothyroidism; lymphedema; Atrial fibrillation; - PSHx: 17:56 None; cataract surgery in right eye; tm6 - Immunization history:: Client reports receiving the 2nd dose of the Covid vaccine. - Infectious Disease History:: Denies. - Social history:: Smoking status: Patient denies any tobacco usage or history of. Patient/guardian denies using alcohol. Screenin:44 [facility] ED Fall Risk Assessment (Adult) History of falling in the last 3 months, db including since admission No falls in past 3 months (0 pts) Confusion or Disorientation No (0 pts) Intoxicated or Sedated No (0 pts) Impaired Gait No (0 pts) Mobility Assist Device Used No (0 pt) Altered Elimination No (0 pt) Score/Fall Risk Level 0 - 2 = Low Risk Oriented to surroundings, Maintained a safe environment. Abuse screen: Denies threats or abuse. Denies injuries from another. Nutritional screening: No deficits noted. Tuberculosis screening: No symptoms or risk factors identified. Assessment: 18:44 Reassessment: Patient appears in no apparent distress at this time. Patient and/or db family updated on plan of care and expected duration. Pain level reassessed. Patient is alert, oriented x 3, equal unlabored respirations, skin warm/dry/pink. Cardiovascular: Reports palpitations, Capillary refill < 3 seconds Rhythm is sinus tachycardia. Respiratory: Airway is patent Respiratory effort is even, unlabored, Respiratory pattern is regular, symmetrical. 19:15 Reassessment: Patient appears in no apparent distress at this time. Patient and/or jb4 family updated on plan of care and expected duration. Pain level reassessed. Patient is alert, oriented x 3, equal unlabored respirations, skin warm/dry/pink. 20:15 Reassessment: Patient appears in no apparent distress at this time. Patient and/or jb4 family updated on plan of care and expected duration. Pain level reassessed. Patient is alert, oriented x 3, equal unlabored respirations, skin warm/dry/pink. 21:15 Reassessment: Patient appears in no apparent distress at this time. Patient and/or jb4 family updated on plan of care and expected duration. Pain level reassessed. Patient is alert, oriented x 3, equal unlabored respirations, skin warm/dry/pink. 22:15 Reassessment: Patient appears in no apparent distress at this time. Patient and/or jb4 family updated on plan of care and expected duration. Pain level reassessed. Patient is alert, oriented x 3, equal unlabored respirations, skin warm/dry/pink. 23:02 Reassessment: Patient appears in no apparent distress at this time. Patient and/or jb4 family updated on plan of care and expected duration. Pain level reassessed. Patient is alert, oriented x 3, equal unlabored respirations, skin warm/dry/pink. 04/08 00:39 Reassessment: Patient appears in no apparent distress at this time. Patient and/or jb4 family updated on plan of care and expected duration. Pain level reassessed. Patient is alert, oriented x 3, equal unlabored respirations, skin warm/dry/pink. 01:26 Reassessment: Patient appears in no apparent distress at this time. Patient and/or jb4 family updated on plan of care and expected duration. Pain level reassessed. Patient is alert, oriented x 3, equal unlabored respirations, skin warm/dry/pink. Vital Signs: 04/07 17:55 BP 105 / 71; Pulse 137; Resp 18; Temp 96.5(TE); Pulse Ox 100% ; Weight 129.27 kg; tm6 Height 6 ft. 2 in. ; Pain 0/10; 18:30 BP 112 / 77; Pulse 140; db 18:45 BP 108 / 74; Pulse 140; Resp 18; Pulse Ox 99% ; db 19:15 BP 110 / 78; Pulse 137; Resp 19; Pulse Ox 97% ; jb4 21:00 BP 95 / 66; Pulse 137; Resp 16; Pulse Ox 95% on R/A; kd3 21:34 BP 105 / 77; Pulse 136; Resp 16; Pulse Ox 97% on R/A; jb4 23:02 BP 96 / 70; Pulse 135; Resp 20; Pulse Ox 95% on R/A; jb4 04/08 00:30 BP 104 / 78; Pulse 131; Resp 20; Pulse Ox 95% on R/A; jb4 00:45 BP 100 / 77; Pulse 131; Resp 19; Pulse Ox 96% on R/A; kd3 01:01 BP 97 / 74; Pulse 131; Resp 19; Pulse Ox 93% on R/A; kd3 01:22 BP 103 / 82; Pulse 131; Resp 19; Pulse Ox 96% on R/A; kd3 04/07 17:55 Body Mass Index 36.59 (129.27 kg, 187.96 cm) tm6 04/07 17:55 Pain Scale: Adult tm6 ED Course: 04/07 17:53 Patient arrived in ED. ra3 17:56 Basil Cantrell PA is PHCP. cp 17:56 Teja Louis MD is Attending Physician. cp 17:57 Arm band placed on left wrist. tm6 18:01 Triage completed. tm6 18:17 Erica Peña, RN is Primary Nurse. db 18:35 Initial lab(s) drawn, by ED staff, sent to lab. Inserted saline lock: 20 gauge in right db antecubital area, using aseptic technique. Blood collected. Flushed with 10 mL NS. 18:43 Patient has correct armband on for positive identification. Bed in low position. Call db light in reach. Side rails up X 1. Provided Education on:. Client placed on continuous cardiac and pulse oximetry monitoring. NIBP monitoring applied. athletic monitor on. Pulse ox on. NIBP on. Warm blanket given. Pillow given. 18:57 XRAY Chest (1 view) In Process Unspecified. EDMS 19:15 Carlos Robles, RN is Primary Nurse. jb4 21:48 Inserted saline lock: 22 gauge in right antecubital area, using aseptic technique. vk Blood collected. Flushed with 10 mL NS. 23:46 Attending Physician role handed off by Teja Louis MD cp 23:46 Dionicio Jaramillo MD is Attending Physician. cp 04/08 00:24 Kenny Rios MD is Private Physician. cp 00:33 Kenny Rios MD is Hospitalizing Provider. cp 01:26 No provider procedures requiring assistance completed. Patient transferred, IV remains jb4 in place. Administered Medications: 04/07 23:46 Discontinued: [id number] mg, d5w iv 500 ml IVPB at 1 mg/min continuous; for 6 hrs, cp then change to 0.5 mg/min 18:39 Drug: Sotalol PO 80 mg PO once Route: PO; db 19:45 Follow up: Response: No adverse reaction jb4 18:40 Drug: Magnesium Sulfate IVPB 1 grams IVPB once over 1 hrs Route: IVPB; Infused Over: 1 db hrs; Site: right antecubital; 19:37 Drug: Sotalol PO 40 mg PO once Route: PO; jb4 20:38 Drug: amiodarone IVPB 150 mg 100 ml IVPB once over 10 mins; (mix in D5W) Volume: 100 jb4 ml; Route: IVPB; Infused Over: 10 mins; Site: left antecubital; 20:49 Follow up: Response: Cardiac rhythm is unchanged; IV Status: Completed infusion 20:56 Drug: amiodarone IVPB 900 mg, D5W IV 500 ml IVPB at 1 mg/min continuous; for 6 hrs, jb4 then change to 0.5 mg/min Route: IVPB; Rate: 1 mg/min; Site: left antecubital; 22:13 Drug: Albumin IVPB 50 grams 100 ml IVPB once; (Note: Albumin 25% concentration) Volume: jb4 100 ml; Route: IVPB; Site: right forearm; 04/08 00:17 Follow up: Response: No adverse reaction; Blood pressure is elevated; IV Status: jb4 Completed infusion 04/07 23:46 Not Given (Physician Discretion): metoprolol5 mg IVP once; Hold for SBP <100 or HR <60. jb4 04/08 00:28 Drug: Diltiazem IV 5 mg/hr IV at calculated rate See Administration Instructions; jb4 (standard dilution 125 mg diltiazem mixed in 125 mL NS; final concentration 1mg/mL). Recommended max rate 15 mg/hr; Titrate 5 mg/hr as often as every 15 minutes to achieve goal (see titration policy); Goal parameter HR less than 100 bpm Route: IV; Rate: calculated rate; Site: right forearm; 00:47 Follow up: Rate change 10 mg/hr kd3 01:02 Follow up: Rate change 15 mg/hr kd3 Medication: 04/07 21:00 VIS not applicable for this client. kd3 Outcome: 04/08 00:35 Decision to Hospitalize by Provider. cp 02:03 Patient left the ED. kd3 Signatures: Dispatcher [employer] EDMS Ivonne Batista RN RN ss Basil Cantrell PA PA cp Carlos Robles RN RN jb4 Eliza Fields RN RN kd3 Erica Peña, RN RN db Lolis Dinero RN RN tm6 Maddy Crum Vivian vk Corrections: (The following items were deleted from the chart) 04/07 20:26 18:00 Acuity: FAHEEM 3 tm6 ss
--- NOTE | 2024-04-08 00:35 | EDPHYS ---
Physician Documentation [facility] Name: Gregg Martinez Age: 68 yrs Sex: Male : 1955 Arrival Date: 04/07/2024 Time: 17:50 Bed 6 Private MD: Kenny Rios V ED Physician Dionicio Jaramillo HPI: 04/07 18:20 This 68 yrs old Male presents to ER via Wheelchair with complaints of Blood Pressure cp Problem - heart palpitations. 18:20 The patient presents with a history of heart racing. cp 18:20 Context: The symptoms occur at rest, and the patient has a history of atrial cp fibrillation. Onset: The symptoms/episode began/occurred today. Duration: The patient or guardian reports a single episode, that is still ongoing, and unchanged. Associated signs and symptoms: Pertinent negatives: chest pain, fever, syncope, vomiting. Severity of symptoms: in the emergency department the symptoms are unchanged despite home interventions, reports DR Rios increased Sotolol recently to 120 mg twice daily. The patient has been recently seen by a physician: Dr. Rios. Historical: - Allergies: 17:56 No Known Allergies; tm6 - PMHx: 17:56 Chronic pain; diabetes mellitus; Gout; Hypercholesterolemia; Hypertensive disorder; tm6 Hypothyroidism; lymphedema; Atrial fibrillation; - PSHx: 17:56 None; cataract surgery in right eye; tm6 - Immunization history:: Client reports receiving the 2nd dose of the Covid vaccine. - Infectious Disease History:: Denies. - Social history:: Smoking status: Patient denies any tobacco usage or history of. Patient/guardian denies using alcohol. ROS: 18:25 Constitutional: Negative for body aches, chills, fever, poor PO intake, cp 18:25 Eyes: Negative for injury, pain, redness, and discharge, cp 18:25 ENT: Negative for drainage from ear(s), ear pain, sore throat, difficulty swallowing, difficulty handling secretions, 18:25 Neck: Negative for pain with movement, pain at rest, stiffness, tenderness, 18:25 Cardiovascular: Positive for edema, palpitations, Negative for chest pain, 18:25 Respiratory: Negative for cough, shortness of breath, wheezing, 18:25 Abdomen/GI: Negative for abdominal pain, vomiting, diarrhea, constipation, 18:25 Back: Negative for pain at rest, pain with movement, 18:25 Skin: Negative for rash, 18:25 Neuro: Negative for altered mental status, dizziness, headache, numbness, syncope, weakness, 18:25 All other systems are negative, Exam: 18:15 ECG was reviewed by the Attending Physician. cp 18:28 Constitutional: The patient appears in no acute distress, alert, awake, cp non-diaphoretic, non-toxic, well developed, well nourished, obese, 18:28 Head/Face: Normocephalic, atraumatic. cp 18:28 Eyes: Periorbital structures: appear normal, Conjunctiva: normal, no exudate, no injection, Sclera: no appreciated abnormality, Lids and lashes: appear normal, bilaterally, 18:28 ENT: External ear(s): are unremarkable, Nose: is normal, Mouth: Lips: moist, Oral mucosa: pink and intact, moist, Posterior pharynx: Airway: no evidence of obstruction, patent, 18:28 Neck: ROM/movement: is normal, is supple, without pain, no range of motions limitations, 18:28 Chest/axilla: Inspection: normal, 18:28 Cardiovascular: Rate: tachycardic, Rhythm: regular, Edema: ankle edema, that is moderate, JVD: is not appreciated, 18:28 Respiratory: the patient does not display signs of respiratory distress, Respirations: shallow respirations, that is mild, Breath sounds: decreased breath sounds, that are mild, throughout, stridor, is not appreciated, wheezing: is not appreciated, 18:28 Abdomen/GI: Inspection: obese Palpation: abdomen is soft and non-tender, in all quadrants, 18:28 Neuro: Orientation: to person, place \T\ time. Mentation: is normal, Motor: moves all fours, no focal deficits, Sensation: is normal, 18:33 ECG was reviewed by the Attending Physician. cp Vital Signs: 17:55 BP 105 / 71; Pulse 137; Resp 18; Temp 96.5(TE); Pulse Ox 100% ; Weight 129.27 kg; tm6 Height 6 ft. 2 in. ; Pain 0/10; 18:30 BP 112 / 77; Pulse 140; db 18:45 BP 108 / 74; Pulse 140; Resp 18; Pulse Ox 99% ; db 19:15 BP 110 / 78; Pulse 137; Resp 19; Pulse Ox 97% ; jb4 21:00 BP 95 / 66; Pulse 137; Resp 16; Pulse Ox 95% on R/A; kd3 21:34 BP 105 / 77; Pulse 136; Resp 16; Pulse Ox 97% on R/A; jb4 23:02 BP 96 / 70; Pulse 135; Resp 20; Pulse Ox 95% on R/A; jb4 04/08 00:30 BP 104 / 78; Pulse 131; Resp 20; Pulse Ox 95% on R/A; jb4 00:45 BP 100 / 77; Pulse 131; Resp 19; Pulse Ox 96% on R/A; kd3 01:01 BP 97 / 74; Pulse 131; Resp 19; Pulse Ox 93% on R/A; kd3 01:22 BP 103 / 82; Pulse 131; Resp 19; Pulse Ox 96% on R/A; kd3 04/07 17:55 Body Mass Index 36.59 (129.27 kg, 187.96 cm) tm6 04/07 17:55 Pain Scale: Adult tm6 MDM: 04/07 17:56 Patient medically screened. 19:00 Differential diagnosis: arrythmia, dehydration, stress disorder, sepsis. 04/08 00:15 ED course: attempt to contact DR Rios to discuss patient. msg left on voicemail. 00:30 Data reviewed: vital signs, nurses notes, lab test result(s), EKG, radiologic studies, cp plain films. 00:30 I considered the following discharge prescriptions or medication management in the emergency department Medications were administered in the Emergency Department. See MAR. Independent interpretation of the following test(s) in the Emergency Department EKG: See my EKG interpretation above. Care significantly affected by the following chronic conditions: Diabetes, Hypertension, Congestive Heart Failure, Obesity. Response to treatment: the patient's symptoms have mildly improved after treatment, and as a result, I will admit patient. 00:40 ED course: text message sent to DR Rios to discuss patient . 04/07 18:19 Order name: Basic Metabolic Panel; Complete Time: 19:44 cp 04/07 19:44 Interpretation: Normal except: CL 109; GLUC 150; BUN 30; CRE 1.36; GFR 57. 04/07 18:19 Order name: CBC with Diff; Complete Time: 19:44 cp 04/07 19:45 Interpretation: Normal except: WBC 13.20; RBC 4.31; HGB 11.1; HCT 35.3; MCH 25.8; MCHC cp 31.5; RDW 17.2; MIRA% 80.3; LYM% 10.4; NEUT A 10.6. 04/07 18:19 Order name: LFT's; Complete Time: 19:44 cp 04/07 19:45 Interpretation: Normal except: AST < 10; IBILI, CALC 0.1; ALB 3.0; GLOB 4.2; A/G 0.7. cp 04/07 18:19 Order name: Magnesium; Complete Time: 19:44 cp 04/07 18:19 Order name: NT PRO-BNP; Complete Time: 19:44 cp 04/07 18:19 Order name: PT-INR; Complete Time: 19:44 cp 04/07 18:19 Order name: Troponin HS; Complete Time: 19:44 cp 04/08 01:14 Order name: Basic Metabolic Panel EDMS 04/08 01:14 Order name: Basic Metabolic Panel EDMS 04/08 01:14 Order name: CBC with Automated Diff EDMS 04/08 01:14 Order name: CBC with Automated Diff EDMS 04/08 01:14 Order name: Troponin High Sensitivity EDMS 04/08 01:14 Order name: Troponin High Sensitivity EDMS 04/08 01:14 Order name: Troponin High Sensitivity EDMS 04/08 01:14 Order name: Troponin High Sensitivity EDMS 04/07 18:19 Order name: XRAY Chest (1 view) cp 04/08 01:14 Order name: EKG Electrocardiogram EDMS 04/08 01:14 Order name: EKG Electrocardiogram EDMS 04/08 01:14 Order name: EKG Electrocardiogram EDMS 04/08 01:14 Order name: EKG Electrocardiogram EDMS 04/07 18:19 Order name: Cardiac monitoring; Complete Time: 18:37 cp 04/07 18:19 Order name: EKG - Nurse/Tech; Complete Time: 18:37 cp 04/07 18:19 Order name: IV Saline Lock; Complete Time: 18:37 cp 04/07 18:19 Order name: Labs collected and sent; Complete Time: 18:37 cp 04/07 18:19 Order name: O2 Per Protocol; Complete Time: 18:37 cp 04/07 18:19 Order name: O2 Sat Monitoring; Complete Time: 18:37 cp EC/29 18:15 Rate is 137 beats/min. Rhythm is regular. OH interval is normal. QRS interval is cp prolonged at 138 msec. QT interval is normal. T waves are Inverted in lead aVR. Interpreted by me. Reviewed by me. 18:33 Rate is 140 beats/min. Rhythm is regular. OH interval is normal. QRS interval is cp prolonged at 134 msec. QT interval is normal. T waves are Inverted in leads aVR, V3. Interpreted by me. Reviewed by me. Administered Medications: 23:46 Discontinued: [id number] mg, d5w iv 500 ml IVPB at 1 mg/min continuous; for 6 hrs, cp then change to 0.5 mg/min 18:39 Drug: Sotalol PO 80 mg PO once Route: PO; db 19:45 Follow up: Response: No adverse reaction jb4 18:40 Drug: Magnesium Sulfate IVPB 1 grams IVPB once over 1 hrs Route: IVPB; Infused Over: 1 db hrs; Site: right antecubital; 19:37 Drug: Sotalol PO 40 mg PO once Route: PO; jb4 20:38 Drug: amiodarone IVPB 150 mg 100 ml IVPB once over 10 mins; (mix in D5W) Volume: 100 jb4 ml; Route: IVPB; Infused Over: 10 mins; Site: left antecubital; 20:49 Follow up: Response: Cardiac rhythm is unchanged; IV Status: Completed infusion ss 20:56 Drug: amiodarone IVPB 900 mg, D5W IV 500 ml IVPB at 1 mg/min continuous; for 6 hrs, jb4 then change to 0.5 mg/min Route: IVPB; Rate: 1 mg/min; Site: left antecubital; 22:13 Drug: Albumin IVPB 50 grams 100 ml IVPB once; (Note: Albumin 25% concentration) Volume: jb4 100 ml; Route: IVPB; Site: right forearm; 04/08 00:17 Follow up: Response: No adverse reaction; Blood pressure is elevated; IV Status: jb4 Completed infusion 04/07 23:46 Not Given (Physician Discretion): metoprolol5 mg IVP once; Hold for SBP <100 or HR <60. jb4 04/08 00:28 Drug: Diltiazem IV 5 mg/hr IV at calculated rate See Administration Instructions; jb4 (standard dilution 125 mg diltiazem mixed in 125 mL NS; final concentration 1mg/mL). Recommended max rate 15 mg/hr; Titrate 5 mg/hr as often as every 15 minutes to achieve goal (see titration policy); Goal parameter HR less than 100 bpm Route: IV; Rate: calculated rate; Site: right forearm; 00:47 Follow up: Rate change 10 mg/hr kd3 01:02 Follow up: Rate change 15 mg/hr kd3 Disposition: 04:02 Co-signature as Attending Physician, Dionicio Jaramillo MD I agree with the assessment sp4 and plan of care. I reviewed the patient's care provided by the Advanced Practice Provider and agree with the diagnosis and treatment plan. Disposition Summary: 04/08/24 00:35 Hospitalization Ordered Notes: Hospitalization Status: Inpatient Admission cp Provider: Kenny Rios cp Location: Intensive Care Unit cp Condition: Stable cp Problem: new cp Symptoms: have improved cp Bed/Room Type: Standard cp Room Assignment: 5-(04/08/24 01:23) rv1 Diagnosis - Tachycardia, unspecified cp - Hypotension, unspecified cp Forms: - Medication Reconciliation Form cp - SBAR form cp - Leadership Thank You Letter cp Signatures: Dispatcher [employer] EDMS Basil Cantrell PA PA cp Carlos Robles, RN RN jb4 Erica Peña RN RN Adina Leon rv1 Dionicio Jaramillo MD MD sp4 Lolis Dinero RN RN tm6 Ivonne Batista RN, Kyli RN kd3 Corrections: (The following items were deleted from the chart) 04/07 18:20 18:20 BASIC METABOLIC PANEL+C.LAB.BRZ ordered. EDMS EDMS 18:20 18:20 CBC+H.LAB.BRZ ordered. EDMS EDMS 18:20 18:20 HEPATIC FUNCTION+C.LAB.BRZ ordered. EDMS EDMS 18:20 18:20 MAGNESIUM+C.LAB.BRZ ordered. EDMS EDMS 18:20 18:20 PROBNP+C.LAB.BRZ ordered. EDMS EDMS 18:20 18:20 PROTIME (+INR)+COAG.LAB.BRZ ordered. EDMS EDMS 18:20 18:20 Troponin High Sensitivity+C.LAB.BRZ ordered. EDMS EDMS 18:20 18:20 Chest Single View+RAD.RAD.BRZ ordered. EDMS EDMS 04/08 01:23 00:35 cp rv1
[2024-04-08] MEDS ORDERED: D10W 125 ML IV PRN (01:13)
[2024-04-08] MEDS ORDERED: GLUCAGON 1 MG/VIAL IM PRN (01:13)
[2024-04-08] MEDS: DILTIAZEM INJ 125 MG/25 ML 125 MG in NA CHLORIDE 0.9% 100 ML IV SCH (02:05)
[2024-04-08] MEDS ORDERED: COLCHICINE 0.6 MG TAB PO PRN (08:11)
[2024-04-08] MEDS ORDERED: TRAMADOL HCL 50 MG TAB PO PRN (08:11)
[2024-04-08] MEDS: ASPIRIN EC 81 MG TAB PO SCH (09:00)
[2024-04-08] MEDS: allopurinoL 100 MG TAB PO SCH (09:54)
[2024-04-08] MEDS: PANTOPRAZOLE 40MG TABLET PO SCH (09:54)
[2024-04-08] MEDS: ROSUVASTATIN 5 MG TAB PO SCH (09:55)
[2024-04-08] MEDS: AMIODARONE HCL 300 MG in D5W 100 ML IV STA (14:10)
--- NOTE | 2024-04-08 14:20 | P.CNS ---
Date of Consult: 04/08/24 Chief Complaint: Palpitations History of Present Illness: Patient with PMH of atrial fibrillation, mechanical aortic valve replacement, presented from primary care clinic due to palpitations, he was found in AF w RVR, dneies chest pain, no SOB, no BASHIR, no syncope. Allergies No Known Allergies Allergy (Unverified 06/12/23 11:54) Home medications list reviewed: Yes Home Medications: RX: Dapagliflozin/Metformin HCl [Xigduo Xr 10 mg-1,000 mg Tab] 1 tab PO DAILY 06/12/23 RX: Furosemide 20 mg PO DAILY 06/12/23 RX: Levothyroxine Sodium 25 mcg PO [id number] 06/12/23 RX: Loratadine [Claritin*] 10 mg PO DAILY 06/12/23 RX: Magnesium Glycinate, Mag Oxide [Magnesium Glycinate] 420 mg PO DAILY 06/12/23 RX: Montelukast [Singulair*] 10 mg PO BEDTIME 06/12/23 RX: Pantoprazole Sodium 40 mg PO DAILY 06/12/23 RX: Rosuvastatin Calcium 5 mg PO DAILY 06/12/23 RX: Tirzepatide [Mounjaro] 7.5 mg SQ SEECOM 06/12/23 RX: Trazodone HCl 100 mg PO BEDTIME PRN 06/12/23 RX: Warfarin Sodium 10 mg PO DAILY 06/12/23 RX: allopurinoL [Allopurinol] 200 mg PO DAILY 06/12/23 RX: lisinopriL [Lisinopril] 20 mg PO DAILY 06/12/23 RX: methocarbamoL [Methocarbamol] 750 mg PO TID PRN 06/12/23 RX: traMADol HCL [Ultram*] 50 mg PO PRN PRN 06/12/23 Ala/B7/Argin/Resve/Querc/Stilb [Mitochondrial Renewal Kit Pkt] 2 cap PO DAILY 04/08/24 Ferrous Gluconate [Iron] 2 tab PO DAILY 04/08/24 Glucosamine/Chondroiti/Uoso461 [Cosamin Asu Capsule] 1 each PO DAILY 04/08/24 RX: Colchicine 0.6 mg PO BID PRN 04/08/24 RX: Gabapentin 300 mg PO TID PRN MDD 600 04/08/24 RX: Sotalol HCl [Betapace*] 120 mg PO BID 6AM 6PM 08/30/24 Ubiquinol [Qunol [place] Coq10] 100 mg PO DAILY 04/08/24 - Past Medical/Surgical History Diabetic: Yes -: DM -: GOUT -: Chronic pain -: Hypercholesterolemia -: HTN -: Hypothyroidism -: Lymphedema -: CHF -: Pulmonary embolism -: Rt wrist repair -: Rt knee repair -: Aortic valve replacement -: cholecystectomy -: Gastric bypass -: BLE vein stripping -: Tonsillectomy - Family History Mother Medical History: Heart disease, Other (see notes) Notes: Mother - ALS Father Medical History: Heart disease Brother Medical History: Heart disease, Kidney disease Sister Medical History: Lung disease, Cancer Notes: lung cancer - Social History Smoking Status: Unknown if ever smoked Alcohol use: Yes CD- Drugs: No Caffeine use: No Place of Residence: Home Review of Systems 10-point ROS is otherwise unremarkable Physical Examination Temp Pulse Resp BP Pulse Ox 97.1 F 124 H 16 106/75 96 04/08/24 11:30 04/08/24 11:45 04/08/24 11:45 04/08/24 11:45 04/08/24 11:45 General: Alert, In no apparent distress HEENT: Atraumatic, PERRLA, Mucous membr. moist/pink, EOMI, Sclerae nonicteric Neck: Supple, 2+ carotid pulse no bruit, No LAD, Without JVD or thyroid abnormality Respiratory: Clear to auscultation bilaterally, Normal air movement Cardiovascular: Irregular heart rate/rhythm Gastrointestinal: Normal bowel sounds, No tenderness Musculoskeletal: No tenderness Integumentary: No rashes Neurological: Normal gait, Normal speech, Normal tone, Normal affect Lymphatics: No axilla or inguinal lymphadenopathy Laboratory Data (last 24 hrs) 04/07/24 04/07/24 04/07/24 18:34 18:34 18:34 WBC 13.20 H Hgb 11.1 L Hct 35.3 L Plt Count 394 PT 26.2 H INR 2.40 Sodium 139 Potassium 4.7 BUN 30 H Creatinine 1.36 H Glucose 150 H Magnesium 2.2 Total Bilirubin 0.3 AST < 10 L ALT 19 Alkaline Phosphatase 72 - Problems (1) Rapid atrial fibrillation Current Visit: No Status: Acute Plan: Patient used to be on Sotalol that was recently raised to 120 mg po BID by his PCP, did not help with AF stop Diltazem Amiodarone 300 mg IV x1 now then continue drip Coumadin home dose as patient INR is 2.4 (2) Aortic prosthetic valve regurgitation Current Visit: No Status: Chronic Plan: Get echo to check on valve function. Qualifiers: (3) Elevated brain natriuretic peptide (BNP) level Current Visit: Yes Status: Acute Plan: recommend starting patient on Lasix 40 mg po BID Monitor input and output monitor and correct electrolytes.
--- NOTE | 2024-04-08 14:37 | EKG ---
Test Date: 2024-04-08 Test Time: 02:20:26 Health Inspector: TL MEASUREMENT RESULTS: Intervals: Rate: 131 VT: QRSD: 128 QT: 348 QTc: 513 [place]: P: VT: QRS: -69 T: 35 INTERPRETIVE STATEMENTS: Atrial flutter with 2:1 block Right bundle branch block Left anterior fascicular block Bifascicular block Abnormal ECG Compared to ECG 04/07/2024 18:27:59 Sinus tachycardia no longer present Bifascicular block still present Electronically Signed On 04-08-24 14:36:44 CDT by Lauri Butler
--- NOTE | 2024-04-08 14:38 | EKG ---
Test Date: 2024-04-07 Test Time: 18:09:21 Knit Goods Cutter Hand: CANDY MEASUREMENT RESULTS: Intervals: Rate: 137 NM: 130 QRSD: 138 QT: 336 QTc: 507 [place]: P: NM: 130 QRS: -82 T: 64 INTERPRETIVE STATEMENTS: Sinus tachycardia Right bundle branch block Left anterior fascicular block Bifascicular block Abnormal ECG Compared to ECG 06/10/2023 14:39:27 Sinus rhythm no longer present Bifascicular block still present Electronically Signed On 04-08-24 14:37:51 CDT by Lauri Butler
[2024-04-08] MEDS: AMIODARONE HCL 900 MG in Dextrose 5%-Water 482 ML IV SCH (14:44)
--- NOTE | 2024-04-08 16:38 | P.HP ---
Certification for Inpatient Patient admitted to: Inpatient Practitioner: I am a practitioner with admitting privileges, knowledge of patient current condition, hospital course, and medical plan of care. Services: Services provided to patient in accordance with Admission requirements found in Title 42 Section 412.3 of the Code of Federal Regulations Patient History Date of Service: 04/08/24 Reason for admission: Palpitations History of Present Illness: ABDULAZIZ CAME WITH RAPID A FIB AT OFFICE. HE WAS ASYMPTOMATIC. OVERNIGHT RAISING SOTALOL TO 120 MG PO BID DID NOT HELP. HIS BP WAS LOW AT 80 SYSTOLIC. I ASKED HIM TO COME TO ER. ER PA SAW THE PATIENT AND PUT HIM ON CARDIZEM DRIP. HR IS STILL HIGH. I ASKED NURSE TO CALL DR ANTON TO HELP MANAGER CARDIOVASCULAR TO AMIODARONE IV IF IT IS OKAY WITH HIM. Allergies No Known Allergies Allergy (Unverified 06/12/23 11:54) Home medications list reviewed: Yes Home Medications: Dapagliflozin/Metformin HCl [Xigduo Xr 10 mg-1,000 mg Tab] 1 tab PO DAILY 06/12/23 Furosemide 20 mg PO DAILY 06/12/23 Levothyroxine Sodium 25 mcg PO [id number] 06/12/23 Loratadine [Claritin*] 10 mg PO DAILY 06/12/23 Magnesium Glycinate, Mag Oxide [Magnesium Glycinate] 420 mg PO DAILY 06/12/23 Montelukast [Singulair*] 10 mg PO BEDTIME 06/12/23 Pantoprazole Sodium 40 mg PO DAILY 06/12/23 Rosuvastatin Calcium 5 mg PO DAILY 06/12/23 Tirzepatide [Mounjaro] 7.5 mg SQ SEECOM 06/12/23 Trazodone HCl 100 mg PO BEDTIME PRN 06/12/23 Warfarin Sodium 10 mg PO DAILY 06/12/23 allopurinoL [Allopurinol] 200 mg PO DAILY 06/12/23 lisinopriL [Lisinopril] 20 mg PO DAILY 06/12/23 methocarbamoL [Methocarbamol] 750 mg PO TID PRN 06/12/23 traMADol HCL [Ultram*] 50 mg PO PRN PRN 06/12/23 Ala/B7/Argin/Resve/Querc/Stilb [Mitochondrial Renewal Kit Pkt] 2 cap PO DAILY 04/08/24 Colchicine 0.6 mg PO BID PRN 04/08/24 Ferrous Gluconate [Iron] 2 tab PO DAILY 04/08/24 Gabapentin 300 mg PO TID PRN MDD 600 04/08/24 Glucosamine/Chondroiti/Vchz304 [Cosamin Asu Capsule] 1 each PO DAILY 04/08/24 Sotalol HCl [Betapace*] 120 mg PO BID 6AM 6PM 04/08/24 Ubiquinol [Qunol [place] Coq10] 100 mg PO DAILY 04/08/24 - Past Medical/Surgical History Has patient received pneumonia vaccine in the past: Yes Diabetic: Yes -: DM -: GOUT -: Chronic pain -: Hypercholesterolemia -: HTN -: Hypothyroidism -: Lymphedema -: CHF -: Pulmonary embolism -: Rt wrist repair -: Rt knee repair -: Aortic valve replacement -: cholecystectomy -: Gastric bypass -: BLE vein stripping -: Tonsillectomy - Family History Mother -: Heart disease, Other (see notes) Notes: Mother - ALS Father -: Heart disease Brother -: Heart disease, Kidney disease Sister -: Lung disease, Cancer Notes: lung cancer - Social History Smoking Status: Never smoker Alcohol use: Yes CD- Drugs: No Caffeine use: No Place of Residence: Home Review of Systems 10-point ROS is otherwise unremarkable Physical Examination - Vital Signs Temperature: 97.1 F Blood Pressure: 109/68 Pulse: 75 Respirations: 23 Pulse Ox (%): 93 - Physical Exam General: Oriented x3, Mild distress, Obese HEENT: Atraumatic, PERRLA, Mucous membr. moist/pink, EOMI, Sclerae nonicteric Neck: Supple, 2+ carotid pulse no bruit, No LAD, Without JVD or thyroid abnormality Respiratory: Clear to auscultation bilaterally, Normal air movement Cardiovascular: Regular rate/rhythm, Normal S1 S2 Gastrointestinal: Normal bowel sounds, No tenderness Musculoskeletal: No tenderness Integumentary: No rashes Neurological: Normal gait, Normal speech, Normal strength at 5/5 x4 extr, Normal tone, Normal affect Lymphatics: No axilla or inguinal lymphadenopathy - Studies Laboratory Data (last 24 hrs) 04/07/24 04/07/24 04/07/24 18:34 18:34 18:34 WBC 13.20 H Hgb 11.1 L Hct 35.3 L Plt Count 394 PT 26.2 H INR 2.40 Sodium 139 Potassium 4.7 BUN 30 H Creatinine 1.36 H Glucose 150 H Magnesium 2.2 Total Bilirubin 0.3 AST < 10 L ALT 19 Alkaline Phosphatase 72 Assessment and Plan - Problems (Diagnosis) (1) Rapid atrial fibrillation Current Visit: No Status: Acute Plan: IV AMIODARONE HE ON THERAPEUTIC WARFARIN. MAY GO HOME IN AM IF STABLE. (2) Diabetes Current Visit: No Status: Chronic Plan: CONTINUE CURRENT MEDS. AC AND HS SL SCALE. A1C DONE AT OFFICE. Qualifiers: Diabetes mellitus type: type 2 - Advance Directives Does patient have a Living Will: No Does patient have a Durable POA for Healthcare: No
[2024-04-08] MEDS: WARFARIN SODIUM 5 MG TAB PO SCH (17:33)
[2024-04-08] MEDS: TRAMADOL HCL 50 MG TAB PO PRN (23:01)
[2024-04-08] MEDS ORDERED: ACETAMINOPHEN 325 MG TABLET PO PRN (23:25)
[2024-04-08] MEDS: GABAPENTIN 300 MG CAP PO PRN (23:57)
[2024-04-08] MEDS: ACETAMINOPHEN 325 MG TABLET PO PRN (23:57)
[2024-04-08] MEDS: TRAZODONE 50 MG TABLET PO PRN (23:59)
[2024-04-09 02:03] VITALS: BMI 36.2
[2024-04-09] MEDS ORDERED: LIDOCAINE 1% 20 ML MDV ONE (04:02)
[2024-04-09 05:30] LABS: Absolute Basophils 0.1 K/uL (0-0.5); Absolute Eosinophils 0.4 K/uL (0-0.5); Absolute Lymphocytes (CBC) 1.6 K/uL (0.7-4.9); Absolute Monocytes 0.7 K/uL (0.1-1.3); Absolute Neutrophil 8.7 K/uL (1.8-8.0); Basophils % 0.6 % (0-1.3); Eosinophils % 3.9 % (0-4.4); Hematocrit 33.1 % (39.6-49.0); Hemoglobin 10.5 g/dL (13.6-17.9); MCH 25.9 pg (27.0-35.0); MCHC 31.7 g/dL (32.0-36.0); MCV 81.8 fL (80-100); MPV 8.2 fL (7.6-11.3); Monocytes % 6.1 % (3.3-12.3); Neutrophils % 75.4 % (41.7-73.7); Nucleated Red Blood Cells % 0.1 % (0-0); Platelets 344 thou/uL (152-406); RBC Red Blood Cell Count 4.05 M/uL (4.33-5.43); Red Cell Distribution Width 17.5 % (12.1-15.2)
[2024-04-09] MEDS: LEVOTHYROXINE SOD 0.025 MG TAB PO SCH (05:37)
[2024-04-09 05:46] LABS: Anion Gap 7.1 mEq/L (5.0-15.0); Magnesium 2.3 mg/dL (1.6-2.4); Potassium 4.1 mEq/L (3.5-5.1)
[2024-04-09] MEDS: ONDANSETRON 4 MG/2 ML VIAL IV PRN (06:27)
[2024-04-09] MEDS: METFORMIN HCL PO SCH (08:00)
[2024-04-09] MEDS: [UNRECOGNIZED DRUG - OTHER] PO SCH (08:00)
[2024-04-09] MEDS: DAPAGLIFLOZIN PO SCH (08:00)
--- NOTE | 2024-04-09 08:51 | P.PN ---
Subjective Date of Service: 04/09/24 Chief Complaint: Palpitations, nausea Subjective: C/O voiced (new nausea after he took trazodone and tramadol last night, that usually he does not take.) Gregg has palpitations. Afib is still rapid at 120-130[address] Anton. He will see him soon. Nausea but there is no chest pain. Review of Systems 10-point ROS is otherwise unremarkable General: Weakness Gastrointestinal: Nausea Physical Examination - Vital Signs Temperature: 97.8 F Blood Pressure: 126/85 Pulse: 127 Respirations: 15 Pulse Ox (%): 98 - Physical Exam General: Oriented x3, Mild distress HEENT: Atraumatic, PERRLA, EOMI Neck: Supple, JVD not distended Respiratory: Clear to auscultation bilaterally, Normal air movement Cardiovascular: Regular rate/rhythm, Normal S1 S2 Gastrointestinal: Normal bowel sounds, No tenderness Musculoskeletal: No tenderness Integumentary: No rashes Neurological: Normal speech, Normal tone, Normal affect Lymphatics: No axilla or inguinal lymphadenopathy - Studies Medications List Reviewed: Yes Assessment And Plan - Current Problems (Diagnosis) (1) Rapid atrial fibrillation Current Visit: No Status: Acute Plan: IV AMIODARONE HE ON THERAPEUTIC WARFARIN. MAY GO HOME IN AM IF STABLE. SOTALOL, CARDIZEM AND AMIODARONE NOW SO FAR FAILED. MAY BE ABLE TO ADD METOPROLOL I LEAVE THAT WITH DR. ANTON. CARDIOVERSION IS NOT POSSIBLE ON THE WEEKEND. (2) Diabetes Current Visit: No Status: Chronic Plan: CONTINUE CURRENT MEDS. AC AND HS SL SCALE. A1C DONE AT OFFICE. A1C IS 6.1. HE CAN STOP MOUNJARO FOR NOW. IF HE EATS WELL AND LOSES WEIGHT HE WILL BECOME A NON DIABETIC. Qualifiers: Diabetes mellitus type: type 2 (3) Nausea Current Visit: Yes Status: Acute Plan: MAY BE MEDS RELATED PHENERGAN IV ZOFRAN FAILED. ALREADY ON PROTONIX. (4) Leukocytosis Current Visit: No Status: Chronic Plan: BC2. THIS MAY BE NORMAL FOR HIM HANEY HS NOT REVEALED ANYTHING SO FAR.
[2024-04-09] MEDS: PROMETHAZINE INJ 25 MG/ML AMP IV PRN (09:06)
[2024-04-09] MEDS: AMIODARONE HCL 300 MG in D5W 100 ML IV STA (13:18)
[2024-04-09] MEDS: METOPROLOL TAR 25 MG TAB PO SCH (13:19)
--- NOTE | 2024-04-09 13:21 | P.PN ---
Subjective Date of Service: 04/09/24 Chief Complaint: Palpitations, nausea Subjective: No new changes, No C/O voiced, Tolerating diet, Other (Patient still in AF, no complains) Review of Systems 10-point ROS is otherwise unremarkable Physical Examination - Vital Signs Temperature: 97.0 F Blood Pressure: 105/75 Pulse: 128 Respirations: 12 Pulse Ox (%): 97 - Physical Exam General: Alert, In no apparent distress HEENT: Atraumatic, PERRLA, EOMI Neck: Supple, JVD not distended Respiratory: Clear to auscultation bilaterally, Normal air movement Cardiovascular: Irregular heart rate/rhythm Gastrointestinal: Normal bowel sounds, No tenderness Musculoskeletal: No tenderness Integumentary: No rashes Neurological: Normal speech, Normal tone, Normal affect Lymphatics: No axilla or inguinal lymphadenopathy - Studies Medications List Reviewed: Yes Assessment And Plan - Current Problems (Diagnosis) (1) Rapid atrial fibrillation Current Visit: No Status: Acute Plan: Patient used to be on Sotalol that was recently raised to 120 mg po BID by his PCP, did not help with AF stop Diltazem Amiodarone bolus was given yesterday, patient responded shortly then back into RVR re load with Amiodarone 300 mg IV x1 and continue drip start lopressor 25 mg po BID Coumadin home dose as patient INR is 2.4 (2) Aortic prosthetic valve regurgitation Current Visit: No Status: Chronic Plan: Get echo to check on valve function. Qualifiers: (3) Elevated brain natriuretic peptide (BNP) level Current Visit: Yes Status: Acute Plan: recommend starting patient on Lasix 40 mg po BID Monitor input and output monitor and correct electrolytes.
[2024-04-09] MEDS ORDERED: MELATONIN 3 MG TABLET PO PRN (20:42)
[2024-04-09] MEDS: MELATONIN 3 MG TABLET PO PRN (21:07)
[2024-04-09] MEDS: PREGABALIN 50 MG CAP PO PRN (21:07)
[2024-04-10] MEDS: Mupirocin NASAL 2 APPL/1 GM TUBE NAS SCH (20:16)
--- NOTE | 2024-04-10 20:58 | P.PN ---
Subjective Date of Service: 04/10/24 Chief Complaint: A FIB, PALPITATIONS Subjective: No new changes Gregg has palpitations. Afib is still rapid at 120-130. [address] Anton. He will see him soon. Nausea but there is no chest pain. rate is still high. Not improved on amiodarone and metoprolol. sotalol failed in past. Review of Systems 10-point ROS is otherwise unremarkable Physical Examination - Vital Signs Temperature: 97.8 F Blood Pressure: 122/80 Pulse: 130 Respirations: 18 Pulse Ox (%): 95 - Physical Exam General: Oriented x3, Obese HEENT: Atraumatic, PERRLA, EOMI Neck: Supple, JVD not distended Respiratory: Clear to auscultation bilaterally, Normal air movement Cardiovascular: Irregular heart rate/rhythm Gastrointestinal: Normal bowel sounds, No tenderness Musculoskeletal: No tenderness Integumentary: No rashes Neurological: Normal speech, Normal tone, Normal affect Lymphatics: No axilla or inguinal lymphadenopathy - Studies Medications List Reviewed: Yes Assessment And Plan - Current Problems (Diagnosis) (1) Rapid atrial fibrillation Current Visit: No Status: Acute Plan: IV AMIODARONE HE ON THERAPEUTIC WARFARIN. MAY GO HOME IN AM IF STABLE. SOTALOL, CARDIZEM AND AMIODARONE NOW SO FAR FAILED. MAY BE ABLE TO ADD METOPROLOL I LEAVE THAT WITH DR. ANTON. CARDIOVERSION IS NOT POSSIBLE ON THE WEEKEND. NOT IMPROVED YET FOR A FIB STABLE. DR. AGUILERA ON CASE (2) Diabetes Current Visit: No Status: Chronic Plan: CONTINUE CURRENT MEDS. AC AND HS SL SCALE. A1C DONE AT OFFICE. A1C IS 6.1. HE CAN STOP MOUNJARO FOR NOW. IF HE EATS WELL AND LOSES WEIGHT HE WILL BECOME A NON DIABETIC. Qualifiers: Diabetes mellitus type: type 2 (3) Nausea Current Visit: Yes Status: Acute Plan: MAY BE MEDS RELATED PHENERGAN IV ZOFRAN FAILED. ALREADY ON PROTONIX. (4) Leukocytosis Current Visit: No Status: Chronic Plan: BC2. THIS MAY BE NORMAL FOR HIM HANEY HS NOT REVEALED ANYTHING SO FAR.
[2024-04-11] MEDS: METOPROLOL TAR 50 MG TAB PO SCH ×2 (05:23→08:23)
[2024-04-11 05:54] LABS: PT Prothrombin Time 21.8 SECONDS (9.4-12.5); Protime INR 1.99
[2024-04-11] MEDS: METOPROLOL TAR 50 MG TAB PO ONE (08:21)
--- NOTE | 2024-04-11 14:00 | P.PN ---
Subjective Date of Service: 04/11/24 Chief Complaint: A FIB, PALPITATIONS Subjective: No new changes Gregg has palpitations. Afib is still rapid at 120-130. [address] Anton. He will see him soon. Nausea but there is no chest pain. rate is still high. Not improved on amiodarone and metoprolol. sotalol failed in past. he is stable. BP was high enough so I raised metoprolol from 25 to 50 to 100 bid for control of hr. Review of Systems 10-point ROS is otherwise unremarkable Physical Examination - Vital Signs Temperature: 97.7 F Blood Pressure: 105/72 Pulse: 108 Respirations: 19 Pulse Ox (%): 94 - Physical Exam General: Mild distress HEENT: Atraumatic, PERRLA, EOMI Neck: Supple, JVD not distended Respiratory: Clear to auscultation bilaterally, Normal air movement Cardiovascular: Abnormal S1 S2 Gastrointestinal: Normal bowel sounds, No tenderness Musculoskeletal: No tenderness Integumentary: No rashes Neurological: Normal speech, Normal tone, Normal affect Lymphatics: No axilla or inguinal lymphadenopathy - Studies Medications List Reviewed: Yes Assessment And Plan - Current Problems (Diagnosis) (1) Rapid atrial fibrillation Current Visit: No Status: Acute Plan: IV AMIODARONE HE ON THERAPEUTIC WARFARIN. MAY GO HOME IN AM IF STABLE. SOTALOL, CARDIZEM AND AMIODARONE NOW SO FAR FAILED. MAY BE ABLE TO ADD METOPROLOL I LEAVE THAT WITH DR. ANTON. CARDIOVERSION IS NOT POSSIBLE ON THE WEEKEND. NOT IMPROVED YET FOR A FIB STABLE. DR. AGUILERA ON CASE HR IS DOWN TO 100 NOW BP BORDER LINE AT ABOUT 100 SYSTOLIC. (2) Diabetes Current Visit: No Status: Chronic Plan: CONTINUE CURRENT MEDS. AC AND HS SL SCALE. A1C DONE AT OFFICE. A1C IS 6.1. HE CAN STOP MOUNJARO FOR NOW. IF HE EATS WELL AND LOSES WEIGHT HE WILL BECOME A NON DIABETIC. Qualifiers: Diabetes mellitus type: type 2 (3) Nausea Current Visit: Yes Status: Acute Plan: MAY BE MEDS RELATED PHENERGAN IV ZOFRAN FAILED. ALREADY ON PROTONIX. (4) Leukocytosis Current Visit: No Status: Chronic Plan: BC2. THIS MAY BE NORMAL FOR HIM HANEY HS NOT REVEALED ANYTHING SO FAR.
[2024-04-11] MEDS: POLYETHYL GLY 3350 17 GM/DOSE PO PRN (17:31)
--- NOTE | 2024-04-11 19:29 | PN ---
Date of Progress Note: 04/11/2024 Subjective: Seen at bedside. Patient continues to be in atrial fibrillation on amiodarone and the r ate is in the low 110 to 120s. Denies having any chest pain. No shortness of breath. Review of Systems: No chest pain, shortness of breath, orthopnea, cough. No nausea, vomiting, diarrhea. All other syst ems reviewed are negative. Physical Examination: Vital Signs: Reviewed. Head and Neck: Pupils are equal, reactive to light. Intact eye movements. No JVD. No cervical lym phadenopathy. Neck is supple. Thyroid is not enlarged. Lungs: Clear to auscultation bilaterally. No rhonchi, rales, or crackles. No accessory muscle use. Heart: Irregularly irregular. No extra sounds. Abdomen: Soft, nontender. Bowel sounds positive. No organomegaly. No masses or hernia. No rigidi ty or rebound. Extremities: No edema, clubbing, cyanosis. Intact pulses. Skin: No rash. Neurologic: Alert, awake, oriented x3. No acute focal deficits appreciated. Investigations: BUN is 17, creatinine 0.93. Troponins x3 are negative. Hemoglobin is 10.5. Assessment/recommendation: 1.Atrial fibrillation with rapid ventricular response. Continue IV amiodarone. Keep n.p.o. past mi dnight. Plan for JIL guided cardioversion and continue Coumadin. His INR is therapeutic at 2. 2.Dyslipidemia, on statin. Continue current therapy. 3.Aortic valve disorder. Await on echo, which will be done tomorrow to further evaluate the aortic valve. 4.Elevated NT-proBNP, likely diastolic heart failure. Obtain echo and evaluate accordingly. 5.Acute renal failure due to mild dehydration. This has resolved. Creatinine is normal today. Keep n.p.o. past midnight for JIL cardioversion tomorrow. SR/MODL Voice ID: [id number] Report ID: [id number]
[2024-04-12 09:17] LABS: PT Prothrombin Time 22.1 SECONDS (9.4-12.5); Protime INR 2.01
[2024-04-12] MEDS ORDERED: NA CHLORIDE 0.9% 500 ML ONE (09:22)
[2024-04-12] MEDS ORDERED: LIDOCAINE 2% MPF 5 ML VIAL ONE (09:46)
[2024-04-12] MEDS ORDERED: propofoL 200 MG/20 ML VIAL IV ONE (09:47)
[2024-04-12 11:01] VITALS: O2SAT 99
--- NOTE | 2024-04-12 11:45 | P.PN ---
Subjective Date of Service: 04/12/24 Chief Complaint: A FIB, PALPITATIONS Subjective: No new changes, No C/O voiced, Tolerating diet, Ambulating, Improving Review of Systems 10-point ROS is otherwise unremarkable Physical Examination - Vital Signs Temperature: 97.1 F Blood Pressure: 112/80 Pulse: 65 Respirations: 18 Pulse Ox (%): 96 - Physical Exam General: Alert, In no apparent distress HEENT: Atraumatic, PERRLA, EOMI Neck: Supple, JVD not distended Respiratory: Clear to auscultation bilaterally, Normal air movement Cardiovascular: Regular rate/rhythm, Normal S1 S2 Gastrointestinal: Normal bowel sounds, No tenderness Musculoskeletal: No tenderness Integumentary: No rashes Neurological: Normal speech, Normal tone, Normal affect Lymphatics: No axilla or inguinal lymphadenopathy - Studies Medications List Reviewed: Yes Assessment And Plan - Current Problems (Diagnosis) (1) Rapid atrial fibrillation Current Visit: No Status: Acute Plan: Patient used to be on Sotalol that was recently raised to 120 mg po BID by his PCP, did not help with AF Patient is s/p JIL DCCV Switch to Amiodarone 200 mg po BID Continue lopressor 100 mg po BID Coumadin home dose as patient INR is 2.4 (2) Aortic prosthetic valve regurgitation Current Visit: No Status: Chronic Plan: JIL shows normal functioning valve. Qualifiers: (3) Elevated brain natriuretic peptide (BNP) level Current Visit: Yes Status: Acute Plan: recommend starting patient on Lasix 40 mg po daily on discharge.
[2024-04-12] MEDS: AMIODARONE HCL 200 MG TAB PO SCH (11:46)
--- NOTE | 2024-04-12 12:41 | TEE ---
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 MODERATE DILATED LEFT ATRIUM, NORMAL LEFT ATRIAL APPENDAGE, NO CLOT. 2. NORMAL FUNCTIONING MECHNICAL AORTIC VALVE TECHNOLOGIST: TOSHIA HOUGH
--- NOTE | 2024-04-12 12:43 | EKG ---
Test Date: 2024-04-10 Test Time: 11:40:56 Stave Block Roller: MEASUREMENT RESULTS: Intervals: Rate: 129 NM: 120 QRSD: 138 QT: 358 QTc: 524 [place]: P: NM: 120 QRS: -79 T: 50 INTERPRETIVE STATEMENTS: atrial flutter with 2:1 block Right bundle branch block Left anterior fascicular block Bifascicular block Abnormal ECG Compared to ECG 04/08/2024 02:21:07 Fusion complex(es) now present Wide-QRS tachycardia no longer present Bifascicular block still present Electronically Signed On 04-12-24 12:40:02 CDT by Lauri Butler
--- NOTE | 2024-04-12 12:49 | EKG ---
Test Date: 2024-04-08 Test Time: 15:02:35 Registered Dental Assistant Rda: NIKI MEASUREMENT RESULTS: Intervals: Rate: 69 PA: 134 QRSD: 144 QT: 442 QTc: 473 [place]: P: 85 PA: 134 QRS: -45 T: 23 INTERPRETIVE STATEMENTS: Sinus rhythm with occasional premature ventricular complexes Right bundle branch block Left anterior fascicular block Bifascicular block Abnormal ECG Compared to ECG 04/08/2024 02:21:07 Ventricular premature complex(es) now present Wide-QRS tachycardia no longer present Bifascicular block still present Electronically Signed On 04-12-24 12:42:47 CDT by Lauri Butler
--- NOTE | 2024-04-12 12:52 | EKG ---
Test Date: 2024-04-08 Test Time: 02:21:07 Bread And Pastry Baker: TL MEASUREMENT RESULTS: Intervals: Rate: 131 VT: QRSD: 130 QT: 338 QTc: 499 [place]: P: VT: QRS: -69 T: 50 INTERPRETIVE STATEMENTS: Atrial fibrillation Right bundle branch block Left anterior fascicular block Bifascicular block Abnormal ECG Compared to ECG 04/08/2024 02:20:26 Atrial flutter no longer present 2:1 AV block no longer present Bifascicular block still present Electronically Signed On 04-12-24 12:44:21 CDT by Lauri Butler
--- NOTE | 2024-04-12 13:48 | OP ---
Date of Procedure: 04/12/2024 Surgeon: Lauri Butler Procedure Performed: Transesophageal echocardiogram cardioversion. Indication For Procedure: Atrial fibrillation. Complications: None. Estimated Blood Loss: None. Sedation: Done by Anesthesia team. Description Of Procedure: After risks, and benefits, and alternatives were explained to patient, pat ient agreed to proceed with procedure and signed informed consent. Patient was brought back to the O R. Time-out was performed. Sedation was administered by Anesthesia team. A JIL probe was inserted. Images were obtained. JIL probe was out. Next, the synchronized cardioversion was done with 200 j oules, but the patient stayed in atrial fibrillation. So, another synchronized cardioversion was don e with 300 joules. Patient was converted back into sinus rhythm. The patient was waking up and move d back to recovery in stable condition. Assessment And Plan: Atrial fibrillation, status post successful transesophageal echocardiogram card ioversion. The plan is to continue amiodarone and Eliquis. LIAN Voice ID: [id number] Report ID: [id number]
[2024-04-12 15:26] VITALS: TEMP 97.4
[2024-04-12 17:16] VITALS: BP 134/83
--- NOTE | 2024-04-12 17:35 | P.DS ---
Admission Date: 04/08/24 Discharge Date: 04/12/24 Disposition: ROUTINE DISCHARGE Discharge Condition: FAIR Reason for Admission: A FIB, PALPITATIONS - Problems (1) Rapid atrial fibrillation Current Visit: No Status: Acute (2) Diabetes Current Visit: No Status: Chronic Qualifiers: Diabetes mellitus type: type 2 (3) Nausea Current Visit: Yes Status: Acute (4) Leukocytosis Current Visit: No Status: Chronic Brief History of Present Illness: ABDULAZIZ CAME WITH RAPID A FIB AT OFFICE. HE WAS ASYMPTOMATIC. OVERNIGHT RAISING SOTALOL TO 120 MG PO BID DID NOT HELP. HIS BP WAS LOW AT 80 SYSTOLIC. I ASKED HIM TO COME TO ER. ER PA SAW THE PATIENT AND PUT HIM ON CARDIZEM DRIP. HR IS STILL HIGH. I ASKED NURSE TO CALL DR ANTON TO HELP ONCOLOGY NURSE TO AMIODARONE IV IF IT IS OKAY WITH HIM. Hospital Course: ABDULAZIZ HAS REFRACTORY RAPID A FIB. HE FAILED SOTALOL 120 MGBID. AMIODARONE DRIP WITH METOPROLOL DID NOT CONTROL A FIB. DR. ANTON COULD NOT DO CARDIOVERSION JIL IS NOT AVAILABLE ON THE WEEKEND. HE TODAY HAD CARDIOVERSION DONE. HE HAS STAYE DIN SINUS RHYTHM OVER A FEW HOURS AND IS STABLE TO GO HOME. Vital Signs/Physical Exam: Temp Pulse Resp BP Pulse Ox 97.4 F 73 18 134/83 96 04/12/24 15:00 04/12/24 17:00 04/12/24 17:00 04/12/24 17:00 04/12/24 14:00 Laboratory Data at Discharge: WBC 11.50 thou/uL (4.3-10.9) H 04/09/24 05:06 Hgb 10.5 g/dL (13.6-17.9) L 04/09/24 05:06 Hct 33.1 % (39.6-49.0) L 04/09/24 05:06 Plt Count 344 thou/uL (152-406) 04/09/24 05:06 PT 22.1 SECONDS (9.4-12.5) H 04/12/24 09:04 INR 2.01 04/12/24 09:04 Sodium 140 mEq/L (136-145) 04/09/24 05:06 Potassium 4.1 mEq/L (3.5-5.1) 04/09/24 05:06 BUN 17 mg/dL (7-18) 04/09/24 05:06 Creatinine 0.93 mg/dL (0.70-1.30) 04/09/24 05:06 Glucose 140 mg/dL (74-106) H 04/09/24 05:06 Magnesium 2.3 mg/dL (1.6-2.4) 04/09/24 05:06 Total Bilirubin 0.3 mg/dL (0.2-1.0) 04/07/24 18:34 AST < 10 U/L (15-37) L 04/07/24 18:34 ALT 19 U/L (16-61) 04/07/24 18:34 Alkaline Phosphatase 72 U/L (45-117) 04/07/24 18:34 Home Medications: Dapagliflozin/Metformin HCl [Xigduo Xr 10 mg-1,000 mg Tab] 1 tab PO DAILY 06/12/23 Furosemide 20 mg PO DAILY 06/12/23 Levothyroxine Sodium 25 mcg PO QPFYS2OB 06/12/23 Loratadine [Claritin*] 10 mg PO DAILY 06/12/23 Magnesium Glycinate, Mag Oxide [Magnesium Glycinate] 420 mg PO DAILY 06/12/23 Montelukast [Singulair*] 10 mg PO BEDTIME 06/12/23 Pantoprazole Sodium 40 mg PO DAILY 06/12/23 Rosuvastatin Calcium 5 mg PO DAILY 06/12/23 Trazodone HCl 100 mg PO BEDTIME PRN 06/12/23 Warfarin Sodium 10 mg PO DAILY 06/12/23 allopurinoL [Allopurinol] 200 mg PO DAILY 06/12/23 lisinopriL [Lisinopril] 20 mg PO DAILY 06/12/23 methocarbamoL [Methocarbamol] 750 mg PO TID PRN 06/12/23 traMADol HCL [Ultram*] 50 mg PO PRN PRN 06/12/23 Colchicine 0.6 mg PO BID PRN 04/08/24 Ferrous Gluconate [Iron] 2 tab PO DAILY 04/08/24 Gabapentin 300 mg PO TID PRN MDD 600 04/08/24 Glucosamine/Chondroiti/Cffr317 [Cosamin Asu Capsule] 1 each PO DAILY 04/08/24 Ubiquinol [Qunol Darien Coq10] 100 mg PO DAILY 04/08/24 Amiodarone HCl [Cordarone*] 200 mg PO BID #60 tab 04/12/24 Metoprolol Tartrate [Lopressor*] 100 mg PO BID #60 tab 04/12/24 New Medications: Amiodarone HCl [Cordarone*] 200 mg PO BID #60 tab Metoprolol Tartrate [Lopressor*] 100 mg PO BID #60 tab Physician Discharge Instructions: PROBLEM:Atrial Fibrilation GOAL: Sinus Rhythm INSTRUCTIONS: Cardioverted x2 , reverted to sinus rhythm. Started on Amiodarone 200 mg PO BID. Lopressor 100 mg PO BID. Diet: Heart Healthy Activity: As tolerated DME DME: Date Ordered: Name of Company: [employer] Services Needed: None Name of Company: Date or Referral: IMMUNIZATION Influenza Vaccine Indicated: Influenza Vaccine Given: Date Given: Pneumonia Vaccine Indicated: No Pneumonia Vaccine Given: Date Given: Follow up with a [facility] [employer] of your choice: NARCISO AGUILERA MD [address] [place] [id number] Followup: Andria Rios MD [Primary Care Provider] -
== END 2024-04-12 18:00 | disposition home or self-care (01) | DRG 309 ==
LOC: ER 17:50 → ERHOLD 04-08 01:06 → 3RD-ICU 04-08 01:34
PROVIDERS: ADMIT Internal Medicine; ATTEND Internal Medicine
PROC: 02HV33Z Insertion of Infusion Device into Superior Vena Cava, Percutaneous Approach (ICD-10-PCS; 2024-04-10)
PROC: B24BZZ4 Ultrasonography of Heart with Aorta, Transesophageal (ICD-10-PCS; principal; 2024-04-12)
PROC: 5A2204Z Restoration of Cardiac Rhythm, Single (ICD-10-PCS; 2024-04-12)
DX: I48.91 Unspecified atrial fibrillation (principal); I50.30 Unspecified diastolic (congestive) heart failure; N17.9 Acute kidney failure, unspecified; I11.0 Hypertensive heart disease with heart failure; E11.9 Type 2 diabetes mellitus without complications; E03.9 Hypothyroidism, unspecified; E78.00 Pure hypercholesterolemia, unspecified; M10.9 Gout, unspecified; I35.8 Other nonrheumatic aortic valve disorders; G89.29 Other chronic pain; E66.01 Morbid (severe) obesity due to excess calories; E86.0 Dehydration; R00.0 Tachycardia, unspecified; Z95.2 Presence of prosthetic heart valve; Z98.84 Bariatric surgery status; Z68.36 Body mass index [BMI] 36.0-36.9, adult; Z79.01 Long term (current) use of anticoagulants; Z90.49 Acquired absence of other specified parts of digestive tract; Z79.890 Hormone replacement therapy; Z79.899 Other long term (current) drug therapy; Z86.711 Personal history of pulmonary embolism
CPT/HCPCS: 36415; 71045; 80048; 80076; 83036; 83735; 83880; 84484; 85025; 85610; 87040; 92960; 93005; 93312; 99285; J0282; J2001; J2405; J2550; J2704; J3475; J7040; J7060; P9047